=== PATIENT | male | born 1965 | race Caucasian/White ===

== ENCOUNTER 2017-08-30 15:10 | Emergency (ER) | payer MEDICAID ==
[~2017-08-30] VITALS: Ht 177.8 cm; Wt 72.9 kg
[~2017-08-30 15:10] MED LIST: BENZ-49 PO; FOLI1TAB16 PO; MULT-1179 PO; THI100T PO
[2017-08-30] MEDS ORDERED: Potassium Cl inj 20 MEQ, magnesium sulf injection 2 GM, folic acid inj. 1 MG, thiamine ... IV ONE ×6 (18:11)
[2017-08-30] MEDS ORDERED: ondansetron/PF 4mg/2ml inj IV ONE (18:15)
[2017-08-30] MEDS ORDERED: pantoprazole 40 MG vial IV ONE (18:15)
[2017-08-30] MEDS ORDERED: [UNRECOGNIZED DRUG - REMARK] IV ONE ×5 (18:17)
[2017-08-30] MEDS ORDERED: magnesium 2GM in 50ml NS 50 ML IV ONE (18:20)
[2017-08-30] MEDS ORDERED: [UNRECOGNIZED DRUG - REMARK] IV ONE ×4 (19:30)
[2017-08-30] MEDS ORDERED: thiamine 100mg tablet PO ONE (19:35)
[2017-08-30] MEDS ORDERED: CHLO10CA6 PO (20:46)
[2017-08-30 22:49] VITALS: BP 145/65
== END 2017-08-30 22:50 | disposition home or self-care (01) ==
LOC: ER 15:11
DX: F10.239 Alcohol dependence with withdrawal, unspecified (principal); R56.9 Unspecified convulsions; Z59.0 Homelessness; Y90.9 Presence of alcohol in blood, level not specified
CPT/HCPCS: 96365; 96366; 96375; 99284; C9113; J2405; J3475; J3480; J3490; J3411

== ENCOUNTER 2017-09-30 20:17 | Emergency (ER) | payer MEDICAID ==
[~2017-09-30] VITALS: Ht 177.8 cm; Wt 77.3 kg
[~2017-09-30 20:17] MED LIST changes: +CHLO10CA6 PO
[2017-09-30] MEDS ORDERED: normal saline 1000ML IV soln IVB ONE ×2 (20:25→23:25)
[2017-09-30] MEDS ORDERED: TETanus/Pertussis (Acell)/Diphther VAC/PF (Tdap-Adult) 0.5ml syringe IM ONE (20:25)
[2017-09-30] MEDS ORDERED: magnesium 2GM in 50ml NS 50 ML IV ONE (20:25)
[2017-09-30] MEDS ORDERED: thiamine inj. 100 MG in normal saline 100ml IV soln 99 ML IV ONE (20:25)
[2017-09-30] MEDS ORDERED: BUPIVAcaine/PF 2.5 mg/ml (0.25%) 30ml vial IJ ONE (20:55)
[2017-10-01] MEDS ORDERED: phenobarbital inj 260 MG in normal saline 100ml IV soln 99 ML IV STA (05:06)
[2017-10-01] MEDS ORDERED: normal saline 1000ML IV soln IVB ONE (05:10)
[2017-10-01] MEDS ORDERED: LORazepam 2 mg/ml vial IV ONE (10:40)
[2017-10-01 12:30] VITALS: BP 137/78
== END 2017-10-01 12:32 | disposition home or self-care (01) ==
LOC: ER 20:18
DX: S06.0X0A Concussion without loss of consciousness, initial encounter (principal); S05.11XA Contusion of eyeball and orbital tissues, right eye, initial encounter; S50.11XA Contusion of right forearm, initial encounter; S40.211A Abrasion of right shoulder, initial encounter; F10.239 Alcohol dependence with withdrawal, unspecified; F10.229 Alcohol dependence with intoxication, unspecified; Z79.899 Other long term (current) drug therapy; V19.9XXA Pedal cyclist (driver) (passenger) injured in unspecified traffic accident, initial encounter; Y93.89 Activity, other specified; Y92.89 Other specified places as the place of occurrence of the external cause; Y99.8 Other external cause status; Y90.0 Blood alcohol level of less than 20 mg/100 ml
CPT/HCPCS: 36415; 70450; 72125; 80320; 90471; 90715; 96361; 96365; 96367; 96368; 96375; 99285; A6449; J2060; J2560; J3411; J3475; J3490; J7030

== ENCOUNTER 2017-10-28 21:03 | Inpatient (IN) | payer MEDICAID ==
[~2017-10-28] VITALS: Ht 177.8 cm; Wt 77.3 kg
[2017-10-28] MEDS ORDERED: normal saline 1000ML IV soln IVB ONE (21:10)
[2017-10-28] MEDS ORDERED: magnesium 2GM in 50ml NS 50 ML IV ONE (21:10)
[2017-10-28] MEDS ORDERED: ondansetron/PF 4mg/2ml inj IV ONE (21:10)
[2017-10-28] MEDS ORDERED: thiamine inj. 100 MG in normal saline 100ml IV soln 99 ML IV ONE (21:10)
[2017-10-28] MEDS ORDERED: BUPIVAcaine/PF 2.5 mg/ml (0.25%) 30ml vial IJ ONE (21:15)
[2017-10-28] MEDS ORDERED: TETanus/Pertussis (Acell)/Diphther VAC/PF (Tdap-Adult) 0.5ml syringe IM ONE (21:15)
[2017-10-28 21:48] LABS: CLARITY,URINE CLEAR (Clear); COLOR,URINE YELLOW (Yellow); GLUCOSE, URINE NEGATIVE (Neg); KETONES,URINE TRACE mg/dl (Neg); LEUKOCYTE ESTERASE ,URINE NEGATIVE (Neg); NITRITES, URINE NEGATIVE (Neg); OCCULT BLOOD,URINE TRACE-INTACT (Neg); PROTEIN,URINE 30 mg/dl (Neg); UA COLLECTION TYPE STRAIGHT CATH
[2017-10-28 21:49] LABS: ALANINE AMINOTRANSFERASE 48 U/L (12-78); ALBUMIN 3.8 G/DL (3.4-5.0); ALBUMIN/GLOBULIN RATIO 0.9 (1.1-1.5); ALKALINE PHOSPHATASE 90 IU/L (46-116); ANION GAP 14 (8-16); ASPARTATE AMINO TRANSFERASE 70 U/L (10-37); BILIRUBIN,TOTAL 0.7 MG/DL (0.1-1.0); BLOOD UREA NITROGEN 5 MG/DL (7-18); BUN/CREATININE RATIO 6.7 (5.4-32.0); CALCIUM 8.4 MG/DL (8.5-10.1); CHLORIDE 92 MMOL/L (99-107); CREATININE 0.75 MG/DL (0.60-1.10); ETHANOL 0.546 GM/DL (0.0-0.010); GLUCOSE 90 MG/DL (70-104); MAGNESIUM 1.9 MG/DL (1.5-2.4); POTASSIUM 3.8 MMOL/L (3.5-5.1); SODIUM 129 MMOL/L (135-145); TOTAL CARBON DIOXIDE 23.2 MMOL/L (24-32); eGFR > 90 ML/MIN
[2017-10-28 21:57] LABS: URINE AMPHETAMINE SCREEN NEGATIVE (Neg); URINE BARBITUATE SCREEN NEGATIVE (Neg); URINE BENZODIAZEPINES SCREEN POSITIVE (Neg); URINE CANNABINOID SCREEN POSITIVE (Neg); URINE COCAINE SCREEN NEGATIVE (Neg); URINE METHADONE SCREEN NEGATIVE (Neg); URINE OPIATE SCREEN NEGATIVE (Neg); URINE PHENCYCLIDINE SCREEN NEGATIVE (Neg)
[2017-10-28 22:03] LABS: BACTERIA,URINE NONE SEEN /HPF (Neg); HYALINE CASTS 0-3 /LPF (NEGATIVE); MUCUS STRANDS FEW /LPF (Neg); RBC,URINE 0-2 /HPF (0-2); SQUAMOUS EPITHELIAL CELL,UR NONE SEEN /LPF (FEW); WBC,URINE 0-4 /HPF (0-4)
[2017-10-28 22:11] LABS: BASOPHILS % (AUTO) 0.6 % (0-1); EOSINOPHILS # (AUTO) 0.1 X10'3 (0-0.9); EOSINOPHILS % (AUTO) 2.5 % (0-6); HEMATOCRIT 35.1 % (42.0-52.0); LYMPHOCYTES # (AUTO) 1.5 X10'3 (1.1-4.8); MEAN CORPUSCULAR HEMOGLOBIN 30.8 PG (27.0-31.0); MEAN CORPUSCULAR HGB CONC 34.2 % (33.0-36.5); MONOCYTES # (AUTO) 0.3 X10'3 (0-0.9); MONOCYTES % (AUTO) 9.4 % (2-12); NEUTROPHILS # (AUTO) 1.3 X10'3 (1.8-7.7); NEUTROPHILS % (AUTO) 41.5 % (42-75); PLATELET COUNT 130 X10'3 (140-440); RED CELL DISTRIBUTION WIDTH 18.2 % (11.5-14.5); WHITE BLOOD COUNT 3.2 X10'3 (4.5-11.0)
[2017-10-28] MEDS ORDERED: thiamine 100mg/ml 2ml inj. IV STA (22:13)
[2017-10-29] MEDS ORDERED: normal saline 1000ML IV soln IVB ONE (04:25)
[2017-10-29] MEDS ORDERED: bacitracin 15gm ointment TP ONE (05:35)
[2017-10-29] MEDS ORDERED: ondansetron/PF 4mg/2ml inj IV PRN (09:45)
[2017-10-29] MEDS ORDERED: haloperidol 5mg tablet PO PRN (09:45)
[2017-10-29] MEDS ORDERED: magnesium hydroxide 30ml (MOM) UD suspension PO PRN (09:45)
[2017-10-29] MEDS ORDERED: haloperidol lactate 5mg/ml inj IM PRN (09:45)
[2017-10-29] MEDS ORDERED: magnesium 4gm in 100ml NS 100 ML IV PRN (09:45)
[2017-10-29] MEDS ORDERED: mag hydrox/Alum hydrox/simeth 30ml oral suspension PO PRN (09:45)
[2017-10-29] MEDS ORDERED: potassium Cl 20 mEq SR tablet PO PRN (09:45)
[2017-10-29] MEDS ORDERED: potassium Cl 40MEQ/NS 500ml 500 ML IV PRN ×2 (09:45)
[2017-10-29] MEDS ORDERED: bisacodyl 10mg suppository rectal RC PRN (09:45)
[2017-10-29] MEDS ORDERED: dextrose 50%-water 50ml dispensing syringe IV PRN (09:45)
[2017-10-29] MEDS ORDERED: magnesium 2GM in 50ml NS 50 ML IV PRN (09:45)
[2017-10-29] MEDS: potassium Cl 20mEq in NS 1,000 ML IV SCH (10:34)
[2017-10-29] MEDS: thiamine inj. 100 MG, MVI, adult No.4 with vit. K 10 ML in dextrose 5% water 500ml 489 ML IV SCH ×3 (11:14)
[2017-10-29 13:22] VITALS: BP 146/90
[2017-10-29] MEDS ORDERED: ketorolac tromethamine 15mg/ml inj. IV PRN (13:40)
[2017-10-29] MEDS: LORazepam 2 mg/ml vial IV PRN ×4 (14:02→22:50)
[2017-10-29 18:00] VITALS: BP 135/79
[2017-10-29] MEDS: docusate sod 100mg capsule PO SCH (19:33)
[2017-10-29] MEDS ORDERED: THI100T PO (20:19)
[2017-10-29] MEDS ORDERED: BENZ-49 PO (20:19)
[2017-10-29] MEDS ORDERED: CHLO25CA10 PO (20:19)
[2017-10-29] MEDS ORDERED: FOLI0.4T2 PO (20:19)
[2017-10-29] MEDS ORDERED: MULT-1179 PO (20:19)
[2017-10-29 22:00] VITALS: BP 139/85
[2017-10-30] MEDS: potassium Cl 20mEq in NS 1,000 ML IV SCH ×2 (03:19→10:44)
[2017-10-30] MEDS: LORazepam 2 mg/ml vial IV PRN ×2 (05:15→09:03)
[2017-10-30 06:00] VITALS: BP 153/89
[2017-10-30 06:10] LABS: BASOPHILS % (AUTO) 0.4 % (0-1); EOSINOPHILS # (AUTO) 0.1 X10'3 (0-0.9); EOSINOPHILS % (AUTO) 3.3 % (0-6); HEMATOCRIT 36.5 % (42.0-52.0); HEMOGLOBIN 12.5 g/dl (14.0-17.9); LYMPHOCYTES % (AUTO) 26.3 % (21-51); MEAN CORPUSCULAR HEMOGLOBIN 31.3 PG (27.0-31.0); MEAN CORPUSCULAR HGB CONC 34.4 % (33.0-36.5); MEAN PLATELET VOLUME 6.3 FL (7.4-10.4); MONOCYTES # (AUTO) 0.4 X10'3 (0-0.9); MONOCYTES % (AUTO) 11.2 % (2-12); NEUTROPHILS # (AUTO) 2.2 X10'3 (1.8-7.7); NEUTROPHILS % (AUTO) 58.8 % (42-75); PLATELET COUNT 129 X10'3 (140-440); RED BLOOD COUNT 4.01 X10'6 (4.70-6.10); RED CELL DISTRIBUTION WIDTH 17.9 % (11.5-14.5); WHITE BLOOD COUNT 3.7 X10'3 (4.5-11.0)
[2017-10-30 06:28] LABS: ALANINE AMINOTRANSFERASE 50 U/L (12-78); ALBUMIN 3.3 G/DL (3.4-5.0); ALBUMIN/GLOBULIN RATIO 0.8 (1.1-1.5); ALKALINE PHOSPHATASE 81 IU/L (46-116); ANION GAP 7 (8-16); ASPARTATE AMINO TRANSFERASE 59 U/L (10-37); BILIRUBIN,TOTAL 1.2 MG/DL (0.1-1.0); BLOOD UREA NITROGEN 6 MG/DL (7-18); BUN/CREATININE RATIO 8.1 (5.4-32.0); CHLORIDE 98 MMOL/L (99-107); CREATININE 0.74 MG/DL (0.60-1.10); GLUCOSE 90 MG/DL (70-104); MAGNESIUM 1.6 MG/DL (1.5-2.4); POTASSIUM 3.6 MMOL/L (3.5-5.1); SODIUM 134 MMOL/L (135-145); TOTAL CARBON DIOXIDE 28.8 MMOL/L (24-32); TOTAL PROTEIN 7.5 G/DL (6.4-8.2); eGFR > 90 ML/MIN
[2017-10-30] MEDS: K and/or MAG REPLACEMENT MC SCH (08:00)
[2017-10-30] MEDS ORDERED: folic acid inj. 2 MG, thiamine inj. 100 MG, MVI, adult No.4 with vit. K 10 ML in dextro... IV SCH ×4 (08:00)
[2017-10-30] MEDS: thiamine inj. 100 MG, MVI, adult No.4 with vit. K 10 ML in dextrose 5% water 500ml 489 ML IV SCH ×3 (08:51)
[2017-10-30] MEDS: docusate sod 100mg capsule PO SCH ×2 (08:51→20:37)
[2017-10-30 10:00] VITALS: BP 152/83
[2017-10-30 18:30] VITALS: BP 171/106
[2017-10-30 20:00] VITALS: BP 156/99
[2017-10-30] MEDS: ketoconazole 2% cream 15gm TP SCH (20:37)
[2017-10-31] MEDS: LORazepam 1 MG tablet PO PRN (00:34)
[2017-10-31] MEDS: potassium Cl 20mEq in NS 1,000 ML IV SCH ×2 (00:34→13:12)
[2017-10-31 05:48] LABS: BASOPHILS % (AUTO) 0.1 % (0-1); EOSINOPHILS # (AUTO) 0.2 X10'3 (0-0.9); EOSINOPHILS % (AUTO) 4.3 % (0-6); HEMATOCRIT 37.6 % (42.0-52.0); HEMOGLOBIN 13.1 g/dl (14.0-17.9); LYMPHOCYTES % (AUTO) 21.1 % (21-51); MEAN CORPUSCULAR HEMOGLOBIN 31.5 PG (27.0-31.0); MEAN CORPUSCULAR HGB CONC 34.9 % (33.0-36.5); MEAN CORPUSCULAR VOLUME 90.1 FL (78-98); MEAN PLATELET VOLUME 7.3 FL (7.4-10.4); MONOCYTES # (AUTO) 0.4 X10'3 (0-0.9); MONOCYTES % (AUTO) 8.5 % (2-12); NEUTROPHILS # (AUTO) 3.2 X10'3 (1.8-7.7); PLATELET COUNT 110 X10'3 (140-440); RED BLOOD COUNT 4.17 X10'6 (4.70-6.10); RED CELL DISTRIBUTION WIDTH 17.9 % (11.5-14.5); WHITE BLOOD COUNT 4.8 X10'3 (4.5-11.0)
[2017-10-31 06:00] VITALS: BP 150/99
[2017-10-31 06:20] LABS: ALANINE AMINOTRANSFERASE 64 U/L (12-78); ALBUMIN 3.6 G/DL (3.4-5.0); ALBUMIN/GLOBULIN RATIO 0.8 (1.1-1.5); ALKALINE PHOSPHATASE 82 IU/L (46-116); ANION GAP 9 (8-16); ASPARTATE AMINO TRANSFERASE 83 U/L (10-37); BILIRUBIN,TOTAL 1.3 MG/DL (0.1-1.0); BLOOD UREA NITROGEN 4 MG/DL (7-18); BUN/CREATININE RATIO 5.4 (5.4-32.0); CALCIUM 9.3 MG/DL (8.5-10.1); CHLORIDE 94 MMOL/L (99-107); CREATININE 0.74 MG/DL (0.60-1.10); GLUCOSE 102 MG/DL (70-104); MAGNESIUM 1.4 MG/DL (1.5-2.4); POTASSIUM 3.4 MMOL/L (3.5-5.1); SODIUM 128 MMOL/L (135-145); TOTAL CARBON DIOXIDE 24.8 MMOL/L (24-32); eGFR > 90 ML/MIN
[2017-10-31] MEDS: K and/or MAG REPLACEMENT MC SCH (07:49)
[2017-10-31] MEDS ORDERED: normal saline 1000ml 1,000 ML IV SCH (07:50)
[2017-10-31] MEDS: docusate sod 100mg capsule PO SCH ×2 (08:01→19:30)
[2017-10-31] MEDS: multivitamins, therapeutics tablet PO SCH (08:02)
[2017-10-31] MEDS: thiamine 100mg tablet PO SCH (08:02)
[2017-10-31] MEDS: potassium Cl 20 mEq SR tablet PO PRN ×3 (08:03→16:59)
[2017-10-31] MEDS: magnesium Cl slow-release 64mg tablet PO PRN ×2 (08:04→14:58)
[2017-10-31] MEDS: ketoconazole 2% cream 15gm TP SCH ×2 (08:05→19:35)
[2017-10-31 10:00] VITALS: BP 162/104
[2017-10-31] MEDS ORDERED: hyDRALAzine 10mg tablet PO PRN (17:05)
[2017-10-31] MEDS ORDERED: hydrALAZINE 20mg/ml inj. IV PRN (17:10)
[2017-10-31] MEDS: lisinopril 20mg tablet PO SCH (17:27)
[2017-10-31 18:00] VITALS: BP 155/96
[2017-10-31 22:00] VITALS: BP 166/99
[2017-11-01] MEDS: LORazepam 1 MG tablet PO PRN ×4 (00:14→23:00)
[2017-11-01] MEDS: potassium Cl 20mEq in NS 1,000 ML IV SCH (01:35)
[2017-11-01 01:56] VITALS: BP 142/88
[2017-11-01 05:00] VITALS: BP 149/94
[2017-11-01 06:15] LABS: BASOPHILS % (AUTO) 0.1 % (0-1); EOSINOPHILS # (AUTO) 0.2 X10'3 (0-0.9); EOSINOPHILS % (AUTO) 3.9 % (0-6); HEMATOCRIT 35.4 % (42.0-52.0); HEMOGLOBIN 12.1 g/dl (14.0-17.9); LYMPHOCYTES # (AUTO) 1.2 X10'3 (1.1-4.8); LYMPHOCYTES % (AUTO) 21.1 % (21-51); MEAN CORPUSCULAR HEMOGLOBIN 31.5 PG (27.0-31.0); MEAN CORPUSCULAR HGB CONC 34.3 % (33.0-36.5); MEAN CORPUSCULAR VOLUME 91.7 FL (78-98); MEAN PLATELET VOLUME 7.1 FL (7.4-10.4); MONOCYTES # (AUTO) 0.8 X10'3 (0-0.9); MONOCYTES % (AUTO) 13.2 % (2-12); NEUTROPHILS # (AUTO) 3.5 X10'3 (1.8-7.7); NEUTROPHILS % (AUTO) 61.7 % (42-75); PLATELET COUNT 144 X10'3 (140-440); RED BLOOD COUNT 3.86 X10'6 (4.70-6.10); WHITE BLOOD COUNT 5.7 X10'3 (4.5-11.0)
[2017-11-01 06:26] LABS: ALANINE AMINOTRANSFERASE 54 U/L (12-78); ALBUMIN 3.4 G/DL (3.4-5.0); ALBUMIN/GLOBULIN RATIO 0.8 (1.1-1.5); ALKALINE PHOSPHATASE 78 IU/L (46-116); ANION GAP 9 (8-16); ASPARTATE AMINO TRANSFERASE 51 U/L (10-37); BILIRUBIN,TOTAL 0.9 MG/DL (0.1-1.0); BLOOD UREA NITROGEN 6 MG/DL (7-18); BUN/CREATININE RATIO 8.1 (5.4-32.0); CALCIUM 9.1 MG/DL (8.5-10.1); CHLORIDE 94 MMOL/L (99-107); CREATININE 0.74 MG/DL (0.60-1.10); GLUCOSE 101 MG/DL (70-104); MAGNESIUM 1.4 MG/DL (1.5-2.4); POTASSIUM 3.9 MMOL/L (3.5-5.1); SODIUM 128 MMOL/L (135-145); TOTAL CARBON DIOXIDE 24.8 MMOL/L (24-32); TOTAL PROTEIN 7.6 G/DL (6.4-8.2); eGFR > 90 ML/MIN
[2017-11-01] MEDS: K and/or MAG REPLACEMENT MC SCH (07:56)
[2017-11-01 08:07] VITALS: BP 134/91
[2017-11-01] MEDS: docusate sod 100mg capsule PO SCH ×2 (08:08→21:58)
[2017-11-01] MEDS: magnesium Cl slow-release 64mg tablet PO PRN ×2 (08:09→18:03)
[2017-11-01] MEDS: lisinopril 20mg tablet PO SCH (08:09)
[2017-11-01] MEDS: thiamine 100mg tablet PO SCH (08:09)
[2017-11-01] MEDS: multivitamins, therapeutics tablet PO SCH (08:09)
[2017-11-01] MEDS: ketoconazole 2% cream 15gm TP SCH ×2 (08:10→21:59)
[2017-11-01 10:00] VITALS: BP 149/90
[2017-11-01] MEDS: dextrose 5%-water 1,000 ML IV SCH (12:03)
[2017-11-01 14:29] LABS: ALANINE AMINOTRANSFERASE 54 U/L (12-78); ALBUMIN 3.4 G/DL (3.4-5.0); ALBUMIN/GLOBULIN RATIO 0.8 (1.1-1.5); ALKALINE PHOSPHATASE 81 IU/L (46-116); ANION GAP 8 (8-16); ASPARTATE AMINO TRANSFERASE 45 U/L (10-37); BILIRUBIN,TOTAL 0.8 MG/DL (0.1-1.0); BLOOD UREA NITROGEN 6 MG/DL (7-18); BUN/CREATININE RATIO 7.5 (5.4-32.0); CALCIUM 9.3 MG/DL (8.5-10.1); CHLORIDE 93 MMOL/L (99-107); GLUCOSE 97 MG/DL (70-104); POTASSIUM 3.9 MMOL/L (3.5-5.1); SODIUM 127 MMOL/L (135-145); TOTAL CARBON DIOXIDE 25.7 MMOL/L (24-32); TOTAL PROTEIN 7.7 G/DL (6.4-8.2); eGFR > 90 ML/MIN
[2017-11-01] MEDS ORDERED: potassium Cl 40MEQ/NS 500ml 500 ML IV PRN ×2 (17:30)
[2017-11-01] MEDS ORDERED: potassium Cl 20 mEq SR tablet PO PRN ×2 (17:30)
[2017-11-01] MEDS ORDERED: LORazepam 1 MG tablet PO PRN (17:58)
[2017-11-01 18:00] VITALS: BP 146/91
[2017-11-01 22:00] VITALS: BP 154/88
[2017-11-02 05:59] LABS: BASOPHILS % (AUTO) 0.3 % (0-1); EOSINOPHILS # (AUTO) 0.2 X10'3 (0-0.9); HEMOGLOBIN 12.2 g/dl (14.0-17.9); LYMPHOCYTES # (AUTO) 1.3 X10'3 (1.1-4.8); LYMPHOCYTES % (AUTO) 21.3 % (21-51); MEAN CORPUSCULAR HEMOGLOBIN 31.6 PG (27.0-31.0); MEAN CORPUSCULAR HGB CONC 34.7 % (33.0-36.5); MEAN CORPUSCULAR VOLUME 91.1 FL (78-98); MEAN PLATELET VOLUME 6.7 FL (7.4-10.4); MONOCYTES # (AUTO) 0.9 X10'3 (0-0.9); MONOCYTES % (AUTO) 14.5 % (2-12); NEUTROPHILS # (AUTO) 3.6 X10'3 (1.8-7.7); NEUTROPHILS % (AUTO) 60.9 % (42-75); PLATELET COUNT 159 X10'3 (140-440); RED BLOOD COUNT 3.85 X10'6 (4.70-6.10)
[2017-11-02 06:15] VITALS: BP 112/55
[2017-11-02 06:57] LABS: ALANINE AMINOTRANSFERASE 50 U/L (12-78); ALBUMIN 3.4 G/DL (3.4-5.0); ALBUMIN/GLOBULIN RATIO 0.8 (1.1-1.5); ALKALINE PHOSPHATASE 74 IU/L (46-116); ANION GAP 8 (8-16); ASPARTATE AMINO TRANSFERASE 37 U/L (10-37); BILIRUBIN,TOTAL 0.8 MG/DL (0.1-1.0); BLOOD UREA NITROGEN 7 MG/DL (7-18); BUN/CREATININE RATIO 9.3 (5.4-32.0); CALCIUM 9.2 MG/DL (8.5-10.1); CHLORIDE 90 MMOL/L (99-107); CREATININE 0.75 MG/DL (0.60-1.10); GLUCOSE 97 MG/DL (70-104); MAGNESIUM 1.3 MG/DL (1.5-2.4); PHOSPHORUS 4.8 MG/DL (2.3-4.5); POTASSIUM 3.9 MMOL/L (3.5-5.1); SODIUM 125 MMOL/L (135-145); TOTAL CARBON DIOXIDE 27.2 MMOL/L (24-32); TOTAL PROTEIN 7.8 G/DL (6.4-8.2); eGFR > 90 ML/MIN
[2017-11-02] MEDS: K and/or MAG REPLACEMENT MC SCH (07:27)
[2017-11-02] MEDS: docusate sod 100mg capsule PO SCH ×2 (07:28→21:12)
[2017-11-02] MEDS: lisinopril 20mg tablet PO SCH (07:39)
[2017-11-02] MEDS: multivitamins, therapeutics tablet PO SCH (07:39)
[2017-11-02] MEDS: thiamine 100mg tablet PO SCH (07:39)
[2017-11-02] MEDS: ketoconazole 2% cream 15gm TP SCH ×2 (07:40→21:13)
[2017-11-02] MEDS: magnesium Cl slow-release 64mg tablet PO PRN ×2 (07:40→21:12)
[2017-11-02] MEDS: acetaminophen 325mg tablet PO PRN (07:41)
[2017-11-02] MEDS: LORazepam 1 MG tablet PO PRN (07:41)
[2017-11-02 07:45] VITALS: BP 141/84
[2017-11-02] MEDS ORDERED: folic acid inj. 2 MG, thiamine inj. 100 MG, MVI, adult No.4 with vit. K 10 ML in dextro... IV SCH ×4 (08:00)
[2017-11-02 10:00] VITALS: BP 124/81
[2017-11-02] MEDS: dextrose 5%-water 1,000 ML IV SCH (12:18)
[2017-11-02 14:30] LABS: ALANINE AMINOTRANSFERASE 48 U/L (12-78); ALBUMIN 3.4 G/DL (3.4-5.0); ALBUMIN/GLOBULIN RATIO 0.8 (1.1-1.5); ALKALINE PHOSPHATASE 77 IU/L (46-116); ANION GAP 8 (8-16); ASPARTATE AMINO TRANSFERASE 35 U/L (10-37); BILIRUBIN,TOTAL 0.9 MG/DL (0.1-1.0); BLOOD UREA NITROGEN 8 MG/DL (7-18); CALCIUM 9.3 MG/DL (8.5-10.1); CHLORIDE 88 MMOL/L (99-107); CREATININE 0.73 MG/DL (0.60-1.10); GLUCOSE 98 MG/DL (70-104); POTASSIUM 3.6 MMOL/L (3.5-5.1); SODIUM 123 MMOL/L (135-145); TOTAL CARBON DIOXIDE 27.3 MMOL/L (24-32); TOTAL PROTEIN 7.8 G/DL (6.4-8.2); eGFR > 90 ML/MIN
[2017-11-02] MEDS ORDERED: LORazepam 1 MG tablet PO PRN (16:20)
[2017-11-02] MEDS ORDERED: chlordiazePOXIDE 25mg capsule PO ONE (16:35)
[2017-11-02] MEDS: normal saline 1000ml 1,000 ML IV SCH (16:47)
[2017-11-02 18:00] VITALS: BP 150/90
[2017-11-02 22:00] VITALS: BP 154/91
[2017-11-03] MEDS: LORazepam 1 MG tablet PO PRN ×3 (03:24→16:06)
[2017-11-03] MEDS: normal saline 1000ml 1,000 ML IV SCH ×2 (04:54→14:38)
[2017-11-03 06:00] VITALS: BP 138/71
[2017-11-03 06:11] LABS: BASOPHILS % (AUTO) 0.3 % (0-1); EOSINOPHILS # (AUTO) 0.2 X10'3 (0-0.9); EOSINOPHILS % (AUTO) 2.5 % (0-6); HEMATOCRIT 33.8 % (42.0-52.0); HEMOGLOBIN 11.5 g/dl (14.0-17.9); LYMPHOCYTES # (AUTO) 1.1 X10'3 (1.1-4.8); LYMPHOCYTES % (AUTO) 16.2 % (21-51); MEAN CORPUSCULAR HEMOGLOBIN 31.3 PG (27.0-31.0); MEAN CORPUSCULAR HGB CONC 34.1 % (33.0-36.5); MEAN CORPUSCULAR VOLUME 91.8 FL (78-98); MEAN PLATELET VOLUME 6.8 FL (7.4-10.4); MONOCYTES # (AUTO) 1.4 X10'3 (0-0.9); MONOCYTES % (AUTO) 19.8 % (2-12); NEUTROPHILS # (AUTO) 4.3 X10'3 (1.8-7.7); NEUTROPHILS % (AUTO) 61.2 % (42-75); PLATELET COUNT 185 X10'3 (140-440); RED BLOOD COUNT 3.68 X10'6 (4.70-6.10); RED CELL DISTRIBUTION WIDTH 17.4 % (11.5-14.5)
[2017-11-03 06:31] LABS: ALANINE AMINOTRANSFERASE 47 U/L (12-78); ALBUMIN 3.3 G/DL (3.4-5.0); ALBUMIN/GLOBULIN RATIO 0.8 (1.1-1.5); ALKALINE PHOSPHATASE 69 IU/L (46-116); ANION GAP 7 (8-16); ASPARTATE AMINO TRANSFERASE 24 U/L (10-37); BILIRUBIN,TOTAL 0.7 MG/DL (0.1-1.0); BLOOD UREA NITROGEN 9 MG/DL (7-18); BUN/CREATININE RATIO 9.3 (5.4-32.0); CALCIUM 9.1 MG/DL (8.5-10.1); CHLORIDE 92 MMOL/L (99-107); CREATININE 0.97 MG/DL (0.60-1.10); GLUCOSE 96 MG/DL (70-104); MAGNESIUM 1.5 MG/DL (1.5-2.4); PHOSPHORUS 4.4 MG/DL (2.3-4.5); POTASSIUM 3.8 MMOL/L (3.5-5.1); SODIUM 126 MMOL/L (135-145); TOTAL CARBON DIOXIDE 27.5 MMOL/L (24-32); TOTAL PROTEIN 7.5 G/DL (6.4-8.2); eGFR 82 ML/MIN
[2017-11-03] MEDS: K and/or MAG REPLACEMENT MC SCH (06:44)
[2017-11-03] MEDS: multivitamins, therapeutics tablet PO SCH (07:31)
[2017-11-03] MEDS: folic acid 1mg tablet PO SCH (07:31)
[2017-11-03] MEDS: thiamine 100mg tablet PO SCH (07:32)
[2017-11-03] MEDS: lisinopril 20mg tablet PO SCH (07:33)
[2017-11-03] MEDS: ketoconazole 2% cream 15gm TP SCH ×2 (07:35→22:48)
[2017-11-03] MEDS: docusate sod 100mg capsule PO SCH ×2 (08:00→22:48)
[2017-11-03 10:00] VITALS: BP 120/72
[2017-11-03] MEDS ORDERED: LORazepam 1 MG tablet PO PRN (12:25)
[2017-11-03] MEDS ORDERED: LORazepam 2 mg/ml vial IV PRN (12:25)
[2017-11-03] MEDS: chlordiazePOXIDE 25mg capsule PO SCH (16:41)
[2017-11-03 18:00] VITALS: BP 119/81
[2017-11-03 22:00] VITALS: BP 150/83
[2017-11-04] MEDS: normal saline 1000ml 1,000 ML IV SCH ×2 (04:03→08:56)
[2017-11-04 06:00] VITALS: BP 139/82
[2017-11-04] MEDS: multivitamins, therapeutics tablet PO SCH (07:07)
[2017-11-04] MEDS: folic acid 1mg tablet PO SCH (07:07)
[2017-11-04] MEDS: LORazepam 1 MG tablet PO PRN (07:07)
[2017-11-04] MEDS: chlordiazePOXIDE 25mg capsule PO SCH (07:07)
[2017-11-04] MEDS: lisinopril 20mg tablet PO SCH (07:07)
[2017-11-04] MEDS: acetaminophen 325mg tablet PO PRN (07:07)
[2017-11-04 07:08] LABS: ALANINE AMINOTRANSFERASE 37 U/L (12-78); ALBUMIN 3.3 G/DL (3.4-5.0); ALBUMIN/GLOBULIN RATIO 0.7 (1.1-1.5); ALKALINE PHOSPHATASE 66 IU/L (46-116); ANION GAP 8 (8-16); ASPARTATE AMINO TRANSFERASE 17 U/L (10-37); BILIRUBIN,TOTAL 0.5 MG/DL (0.1-1.0); BLOOD UREA NITROGEN 8 MG/DL (7-18); BUN/CREATININE RATIO 10.8 (5.4-32.0); CALCIUM 9.5 MG/DL (8.5-10.1); CHLORIDE 97 MMOL/L (99-107); CREATININE 0.74 MG/DL (0.60-1.10); GLUCOSE 92 MG/DL (70-104); MAGNESIUM 1.8 MG/DL (1.5-2.4); PHOSPHORUS 4.6 MG/DL (2.3-4.5); POTASSIUM 3.9 MMOL/L (3.5-5.1); SODIUM 131 MMOL/L (135-145); TOTAL CARBON DIOXIDE 26.2 MMOL/L (24-32); TOTAL PROTEIN 7.8 G/DL (6.4-8.2); eGFR > 90 ML/MIN
[2017-11-04] MEDS: ketoconazole 2% cream 15gm TP SCH ×2 (07:08→19:58)
[2017-11-04] MEDS: thiamine 100mg tablet PO SCH (07:08)
[2017-11-04] MEDS: docusate sod 100mg capsule PO SCH ×2 (07:08→19:59)
[2017-11-04] MEDS: K and/or MAG REPLACEMENT MC SCH (07:13)
[2017-11-04 10:00] VITALS: BP 107/69
[2017-11-04 18:00] VITALS: BP 142/93
[2017-11-04 22:00] VITALS: BP 150/99
[2017-11-05] MEDS ORDERED: magnesium 2GM in 50ml NS 50 ML IV ONE (00:35)
[2017-11-05] MEDS: normal saline 1000ml 1,000 ML IV SCH (01:38)
[2017-11-05 06:00] VITALS: BP 139/85
[2017-11-05 07:00] LABS: ALANINE AMINOTRANSFERASE 35 U/L (12-78); ALBUMIN 3.2 G/DL (3.4-5.0); ALBUMIN/GLOBULIN RATIO 0.7 (1.1-1.5); ALKALINE PHOSPHATASE 63 IU/L (46-116); ANION GAP 8 (8-16); ASPARTATE AMINO TRANSFERASE 17 U/L (10-37); BILIRUBIN,TOTAL 0.3 MG/DL (0.1-1.0); BLOOD UREA NITROGEN 12 MG/DL (7-18); BUN/CREATININE RATIO 16.4 (5.4-32.0); CALCIUM 9.4 MG/DL (8.5-10.1); CHLORIDE 99 MMOL/L (99-107); CREATININE 0.73 MG/DL (0.60-1.10); GLUCOSE 88 MG/DL (70-104); MAGNESIUM 2.4 MG/DL (1.5-2.4); PHOSPHORUS 4.6 MG/DL (2.3-4.5); POTASSIUM 3.8 MMOL/L (3.5-5.1); SODIUM 134 MMOL/L (135-145); TOTAL CARBON DIOXIDE 26.8 MMOL/L (24-32); TOTAL PROTEIN 7.7 G/DL (6.4-8.2); eGFR > 90 ML/MIN
[2017-11-05] MEDS: docusate sod 100mg capsule PO SCH (07:23)
[2017-11-05] MEDS: multivitamins, therapeutics tablet PO SCH (07:23)
[2017-11-05] MEDS: folic acid 1mg tablet PO SCH (07:23)
[2017-11-05] MEDS: chlordiazePOXIDE 25mg capsule PO SCH (07:23)
[2017-11-05] MEDS: thiamine 100mg tablet PO SCH (07:23)
[2017-11-05] MEDS: lisinopril 20mg tablet PO SCH (07:23)
[2017-11-05] MEDS: acetaminophen 325mg tablet PO PRN (07:24)
[2017-11-05] MEDS: K and/or MAG REPLACEMENT MC SCH (07:25)
[2017-11-05] MEDS: ketoconazole 2% cream 15gm TP SCH (08:00)
[2017-11-05] MEDS ORDERED: FOLI0.4T2 PO (11:22)
[2017-11-05] MEDS ORDERED: LISI-600 PO (11:22)
[2017-11-05] MEDS ORDERED: THI100T PO (11:22)
[2017-11-05] MEDS ORDERED: CHLO25CA10 PO (11:22)
[2017-11-05] MEDS ORDERED: KETO15CR2 TP (11:22)
[2017-11-05] MEDS ORDERED: LORazepam 1 MG tablet PO PRN (12:25)
[2017-11-05] MEDS ORDERED: LORazepam 2 mg/ml vial IV PRN (12:25)
== END 2017-11-05 12:18 | disposition home or self-care (01) | DRG 57 ==
LOC: ER 21:04 → ED HOLD 10-29 09:13 → ORTHO 4S 10-29 13:25
PROVIDERS: ADMIT Internal Medicine; ATTEND Family Medicine
DX: S06.0X0A Concussion without loss of consciousness, initial encounter (principal); D69.6 Thrombocytopenia, unspecified; E87.1 Hypo-osmolality and hyponatremia; B35.3 Tinea pedis; I10 Essential (primary) hypertension; F10.229 Alcohol dependence with intoxication, unspecified; S00.03XA Contusion of scalp, initial encounter; S00.81XA Abrasion of other part of head, initial encounter; X58.XXXA Exposure to other specified factors, initial encounter; R29.6 Repeated falls; F10.239 Alcohol dependence with withdrawal, unspecified; Y90.2 Blood alcohol level of 40-59 mg/100 ml; Z71.41 Alcohol abuse counseling and surveillance of alcoholic; Z59.0 Homelessness; Z79.899 Other long term (current) drug therapy; Z87.01 Personal history of pneumonia (recurrent); Y93.89 Activity, other specified; Y92.89 Other specified places as the place of occurrence of the external cause; Y99.8 Other external cause status
CPT/HCPCS: 36415; 64450; 70450; 70486; 71045; 72125; 80053; 80305; 80320; 81001; 82948; 83735; 84100; 85025; 87070; 90471; 90715; 93005; 96361; 96365; 96375; 97110; 97116; 97162; 97530; 99285; A4353; A4649; A6223; A6446; A6449; J1885; J2060; J2405; J3411; J3475; J3490; J7030; J7042; J7060; J7070

== ENCOUNTER 2019-10-03 06:36 | Emergency (ER) | payer MEDICAID ==
[~2019-10-03] VITALS: Ht 177.8 cm; Wt 77.3 kg
[~2019-10-03 06:36] MED LIST changes: -BENZ-49 PO; -CHLO10CA6 PO; +CHLO25CA10 PO; +FOLI0.4T2 PO; -FOLI1TAB16 PO; +KETO15CR2 TP; +LISI-600 PO
[2019-10-03] MEDS ORDERED: normal saline 1000ML IV soln IVB ONE (06:55)
[2019-10-03] MEDS ORDERED: LORazepam 2 mg/ml vial IV ONE (06:55)
[2019-10-03 07:36] LABS: BASOPHILS % (AUTO) 0.5 % (0-1); EOSINOPHILS % (AUTO) 1.2 % (0-6); HEMATOCRIT 40.6 % (42.0-52.0); LYMPHOCYTES # (AUTO) 0.4 X10'3 (1.1-4.8); LYMPHOCYTES % (AUTO) 15.7 % (21-51); MEAN CORPUSCULAR HEMOGLOBIN 31.6 PG (27.0-31.0); MEAN CORPUSCULAR HGB CONC 34.4 g/dL (33.0-36.5); MEAN PLATELET VOLUME 6.3 FL (7.4-10.4); MONOCYTES # (AUTO) 0.3 X10'3 (0-0.9); MONOCYTES % (AUTO) 11.5 % (2-12); NEUTROPHILS # (AUTO) 1.8 X10'3 (1.8-7.7); NEUTROPHILS % (AUTO) 71.1 % (42-75); PLATELET COUNT 130 X10'3 (140-440); RED BLOOD COUNT 4.41 X10'6 (4.70-6.10); RED CELL DISTRIBUTION WIDTH 15.7 % (11.5-14.5); WHITE BLOOD COUNT 2.5 X10'3 (4.5-11.0)
[2019-10-03 07:48] LABS: PARTIAL THROMBOPLASTIN TIME 26 SECONDS (22-32)
[2019-10-03 08:02] LABS: ALANINE AMINOTRANSFERASE 128 U/L (12-78); ALBUMIN 3.8 G/DL (3.4-5.0); ALBUMIN/GLOBULIN RATIO 0.9 (1.1-1.5); ALKALINE PHOSPHATASE 75 IU/L (46-116); ANION GAP 10 (8-16); ASPARTATE AMINO TRANSFERASE 163 U/L (10-37); BILIRUBIN,TOTAL 0.8 MG/DL (0.1-1.0); BLOOD UREA NITROGEN 7 MG/DL (7-18); BUN/CREATININE RATIO 8.1 (5.4-32.0); CALCIUM 8.8 MG/DL (8.5-10.1); CHLORIDE 100 MMOL/L (99-107); CREATININE 0.86 MG/DL (0.60-1.10); ETHANOL 0.074 GM/DL (0.0-0.010); GLUCOSE 88 MG/DL (70-104); LIPASE 340 U/L (73-393); POTASSIUM 3.5 MMOL/L (3.5-5.1); SODIUM 138 MMOL/L (135-145); TOTAL CARBON DIOXIDE 28.3 MMOL/L (24-32); TOTAL PROTEIN 7.9 G/DL (6.4-8.2); eGFR > 90 ML/MIN
[2019-10-03 08:07] LABS: PLATELET ESTIMATE DECREASED; TOTAL CELLS COUNTED 100
[2019-10-03] MEDS ORDERED: chlordiazePOXIDE 25mg capsule PO ONE ×2 (09:05→09:30)
[2019-10-03 09:14] VITALS: BP 159/92
[2019-10-03 09:16] LABS: CLARITY,URINE CLEAR (Clear); COLOR,URINE YELLOW (Yellow); GLUCOSE, URINE NEGATIVE (Neg); KETONES,URINE TRACE mg/dl (Neg); LEUKOCYTE ESTERASE ,URINE NEGATIVE (Neg); NITRITES, URINE NEGATIVE (Neg); OCCULT BLOOD,URINE NEGATIVE (Neg); PH,URINE 7.5 (4.8-8.0); PROTEIN,URINE TRACE mg/dl (Neg)
[2019-10-03 09:23] LABS: UA COLLECTION TYPE CLN CATCH MIDSTREAM
[2019-10-03 09:24] LABS: MUCUS STRANDS FEW /LPF (Neg)
[2019-10-03 09:25] LABS: BACTERIA,URINE 1+ /HPF (Neg); RBC,URINE 0-2 /HPF (0-2); SQUAMOUS EPITHELIAL CELL,UR FEW /LPF (FEW); WBC,URINE 0-4 /HPF (0-4)
[2019-10-03] MEDS ORDERED: LORA-269 PO (20:30)
== END 2019-10-03 09:43 | disposition home or self-care (01) ==
LOC: ER 06:37
DX: S00.83XA Contusion of other part of head, initial encounter (principal); S00.531A Contusion of lip, initial encounter; F07.81 Postconcussional syndrome; F10.129 Alcohol abuse with intoxication, unspecified; Z86.69 Personal history of other diseases of the nervous system and sense organs; W01.0XXA Fall on same level from slipping, tripping and stumbling without subsequent striking against object, initial encounter; Y93.89 Activity, other specified; Y92.89 Other specified places as the place of occurrence of the external cause; Y99.8 Other external cause status; Y90.0 Blood alcohol level of less than 20 mg/100 ml
CPT/HCPCS: 70450; 70486; 80053; 80320; 81001; 83690; 83735; 85025; 85610; 85730; 96374; 99285; J2060; J7030

== ENCOUNTER 2019-10-03 19:30 | Emergency (ER) | payer MEDICAID ==
[~2019-10-03] VITALS: Ht 170.2 cm; Wt 77.3 kg
[2019-10-03] MEDS ORDERED: LORA-269 PO (20:30)
[2019-10-03] MEDS ORDERED: LORazepam 1 MG tablet PO ONE (21:00)
[2019-10-03 21:09] VITALS: BP 155/100
== END 2019-10-03 21:05 | disposition home or self-care (01) ==
LOC: ER 19:30
DX: F10.239 Alcohol dependence with withdrawal, unspecified (principal); R42 Dizziness and giddiness; Z86.69 Personal history of other diseases of the nervous system and sense organs; Z79.899 Other long term (current) drug therapy
CPT/HCPCS: 99283

== ENCOUNTER 2019-10-08 07:00 | Emergency (ER) | payer MEDICAID ==
[~2019-10-08] VITALS: Ht 177.8 cm; Wt 77.3 kg
[~2019-10-08 07:00] MED LIST changes: +LORA-269 PO
[2019-10-08 07:01] VITALS: BP 129/91
== END 2019-10-08 08:13 | disposition home or self-care (01) ==
LOC: ER 07:00
DX: S90.112A Contusion of left great toe without damage to nail, initial encounter (principal); Z86.69 Personal history of other diseases of the nervous system and sense organs; Z98.890 Other specified postprocedural states; Z72.89 Other problems related to lifestyle; Z79.899 Other long term (current) drug therapy; W01.198A Fall on same level from slipping, tripping and stumbling with subsequent striking against other object, initial encounter; Y93.89 Activity, other specified; Y92.89 Other specified places as the place of occurrence of the external cause; Y99.8 Other external cause status
CPT/HCPCS: 73660; 99284

== ENCOUNTER 2019-12-27 00:58 | Emergency (ER) | payer MEDICAID ==
[~2019-12-27] VITALS: Ht 177.8 cm; Wt 77.3 kg
[~2019-12-27 00:58] MED LIST changes: -MULT-1179 PO; +MULT-25 PO
--- NOTE | 2019-12-27 01:12 | NUR ---
provided pt with large cup of water. pt drinking water without issue and urinal provided at bedside.
--- NOTE | 2019-12-27 01:52 | NUR ---
PT GIVEN 2ND LARGE CUP OF WATER. WILL CONTINUE TO MONITOR AND ATTEMPT GAIT TEST AFTER 2ND CUP CONSUMPTION
[2019-12-27 05:08] VITALS: BP 103/52
== END 2019-12-27 05:11 | disposition home or self-care (01) ==
LOC: ER 00:58
DX: F10.920 Alcohol use, unspecified with intoxication, uncomplicated (principal); Z86.69 Personal history of other diseases of the nervous system and sense organs; Z98.890 Other specified postprocedural states; Z72.89 Other problems related to lifestyle; Z79.899 Other long term (current) drug therapy; Y90.9 Presence of alcohol in blood, level not specified
CPT/HCPCS: 99284

== ENCOUNTER 2020-01-24 12:11 | Emergency (ER) | payer MEDICAID ==
[~2020-01-24] VITALS: Ht 177.8 cm; Wt 72.9 kg
[2020-01-24] MEDS ORDERED: phenobarbital inj 260 MG in normal saline 100ml IV soln 100 ML IV ONE (12:15)
[2020-01-24] MEDS ORDERED: thiamine 100mg tablet PO ONE (12:15)
[2020-01-24] MEDS ORDERED: normal saline 1000ML IV soln IVB ONE (12:15)
[2020-01-24] MEDS ORDERED: magnesium oxide 400mg tablet PO ONE (12:15)
[2020-01-24] MEDS ORDERED: TETanus/Pertussis (Acell)/Diphther VAC/PF (Tdap-Adult) 0.5ml syringe IMVAC ONE (12:15)
[2020-01-24 12:51] LABS: BASOPHILS % (AUTO) 0.4 % (0-1); EOSINOPHILS % (AUTO) 0.4 % (0-6); HEMATOCRIT 37.7 % (42.0-52.0); HEMOGLOBIN 12.7 g/dl (14.0-17.9); LYMPHOCYTES % (AUTO) 29.5 % (21-51); MEAN CORPUSCULAR HEMOGLOBIN 30.2 PG (27.0-31.0); MEAN CORPUSCULAR HGB CONC 33.6 g/dL (33.0-36.5); MEAN CORPUSCULAR VOLUME 90.1 FL (78-98); MEAN PLATELET VOLUME 6.9 FL (7.4-10.4); MONOCYTES # (AUTO) 0.4 X10'3 (0-0.9); MONOCYTES % (AUTO) 13.3 % (2-12); NEUTROPHILS # (AUTO) 1.9 X10'3 (1.8-7.7); NEUTROPHILS % (AUTO) 56.4 % (42-75); PLATELET COUNT 58 X10'3 (140-440); RED BLOOD COUNT 4.19 X10'6 (4.70-6.10); RED CELL DISTRIBUTION WIDTH 17.8 % (11.5-14.5); WHITE BLOOD COUNT 3.4 X10'3 (4.5-11.0)
[2020-01-24 13:08] LABS: ALANINE AMINOTRANSFERASE 91 U/L (12-78); ALBUMIN 3.6 G/DL (3.4-5.0); ALBUMIN/GLOBULIN RATIO 0.9 (1.1-1.5); ALKALINE PHOSPHATASE 60 IU/L (46-116); ANION GAP 10 (8-16); ASPARTATE AMINO TRANSFERASE 117 U/L (10-37); BILIRUBIN,TOTAL 0.9 MG/DL (0.1-1.0); BLOOD UREA NITROGEN 5 MG/DL (7-18); BUN/CREATININE RATIO 6.4 (5.4-32.0); CALCIUM 7.8 MG/DL (8.5-10.1); CHLORIDE 95 MMOL/L (99-107); CREATININE 0.78 MG/DL (0.60-1.10); GLUCOSE 91 MG/DL (70-104); LIPASE 528 U/L (73-393); POTASSIUM 3.4 MMOL/L (3.5-5.1); SODIUM 130 MMOL/L (135-145); TOTAL PROTEIN 7.6 G/DL (6.4-8.2); eGFR > 90 ML/MIN
[2020-01-24 13:15] LABS: ETHANOL 0.461 GM/DL (0.0-0.010)
--- NOTE | 2020-01-24 13:15 | NUR ---
BACK FROM CT
--- NOTE | 2020-01-24 13:32 | NUR ---
RELIEVING RN FOR LUNCH BREAK, DR CLARKE AT BEDSIDE TO REEVALUATE PT, PT IS SLEEPING, EASILY AROUSEABLE, GCS 15 ORIENTED X3, CCOLLAR REMOVED BY DR CLARKE AND TAKEN OFF TRAUMA STATUS, WILL CONTINUE TO MONITOR PT AND GAIT TEST WHEN PT IS ALERT
[2020-01-24 13:36] LABS: CLARITY,URINE CLEAR (Clear); COLOR,URINE STRAW (Yellow); GLUCOSE, URINE NEGATIVE (Neg); KETONES,URINE NEGATIVE (Neg); LEUKOCYTE ESTERASE ,URINE NEGATIVE (Neg); NITRITES, URINE NEGATIVE (Neg); OCCULT BLOOD,URINE TRACE-INTACT (Neg); PROTEIN,URINE TRACE mg/dl (Neg)
[2020-01-24 13:39] LABS: UA COLLECTION TYPE URINAL
[2020-01-24 13:42] LABS: BACTERIA,URINE NONE SEEN /HPF (Neg); HYALINE CASTS 0-3 /LPF (NEGATIVE); MUCUS STRANDS NONE SEEN /LPF (Neg); RBC,URINE 0-2 /HPF (0-2); SQUAMOUS EPITHELIAL CELL,UR NONE SEEN /LPF (FEW); WBC,URINE NONE SEEN /HPF (0-4)
[2020-01-24 13:43] LABS: URINE AMPHETAMINE SCREEN NEGATIVE (Neg); URINE BARBITUATE SCREEN NEGATIVE (Neg); URINE BENZODIAZEPINES SCREEN NEGATIVE (Neg); URINE CANNABINOID SCREEN NEGATIVE (Neg); URINE COCAINE SCREEN NEGATIVE (Neg); URINE METHADONE SCREEN NEGATIVE (Neg); URINE OPIATE SCREEN NEGATIVE (Neg); URINE PHENCYCLIDINE SCREEN NEGATIVE (Neg)
--- NOTE | 2020-01-24 18:15 | NUR ---
PT PULLED OUT IV AND URINATED ON FLOOR.
--- NOTE | 2020-01-24 19:17 | NUR ---
PT GAIT TESTED BY PCT. PT IS SHAKEY, BUT AMBULATES. MD IN ROOM TO ASSESS PATIENT
[2020-01-24 19:29] VITALS: BP 151/95
== END 2020-01-24 19:31 | disposition home or self-care (01) ==
LOC: ER 12:11
DX: S00.31XA Abrasion of nose, initial encounter (principal); F10.129 Alcohol abuse with intoxication, unspecified; R41.82 Altered mental status, unspecified; R47.81 Slurred speech; Z86.69 Personal history of other diseases of the nervous system and sense organs; Z98.890 Other specified postprocedural states; Z72.89 Other problems related to lifestyle; X58.XXXA Exposure to other specified factors, initial encounter; Y93.89 Activity, other specified; Y92.89 Other specified places as the place of occurrence of the external cause; Y99.8 Other external cause status; Y90.0 Blood alcohol level of less than 20 mg/100 ml
CPT/HCPCS: 36415; 70450; 70486; 72125; 80053; 80305; 80320; 81001; 83690; 85025; 90471; 90715; 93005; 96365; 99285; J7030

== ENCOUNTER 2020-02-25 07:31 | Emergency (ER) | payer MEDICAID ==
[~2020-02-25] VITALS: Ht 177.8 cm; Wt 67.3 kg
[2020-02-25] MEDS ORDERED: normal saline 1000ML IV soln IVB ONE (09:40)
[2020-02-25] MEDS ORDERED: phenobarbital inj 260 MG in normal saline 100ml IV soln 100 ML IV ONE (09:40)
[2020-02-25] MEDS ORDERED: TETanus/Pertussis (Acell)/Diphther VAC/PF (Tdap-Adult) 0.5ml syringe IMVAC ONE (09:40)
[2020-02-25] MEDS ORDERED: magnesium 2GM in 50ml NS 50 ML IV ONE (09:40)
[2020-02-25] MEDS ORDERED: thiamine inj. 100 MG in normal saline 100ml IV soln 99 ML IV ONE (09:40)
[2020-02-25 10:12] LABS: BASOPHILS % (AUTO) 0.5 % (0-1); EOSINOPHILS % (AUTO) 0.3 % (0-6); HEMATOCRIT 35.2 % (42.0-52.0); HEMOGLOBIN 12.1 g/dl (14.0-17.9); LYMPHOCYTES # (AUTO) 0.8 X10'3 (1.1-4.8); LYMPHOCYTES % (AUTO) 12.6 % (21-51); MEAN CORPUSCULAR HEMOGLOBIN 31.7 PG (27.0-31.0); MEAN CORPUSCULAR HGB CONC 34.2 g/dL (33.0-36.5); MEAN CORPUSCULAR VOLUME 92.7 FL (78-98); MEAN PLATELET VOLUME 5.6 FL (7.4-10.4); MONOCYTES # (AUTO) 0.7 X10'3 (0-0.9); MONOCYTES % (AUTO) 10.2 % (2-12); NEUTROPHILS % (AUTO) 76.4 % (42-75); PLATELET COUNT 275 X10'3 (140-440); RED CELL DISTRIBUTION WIDTH 16.7 % (11.5-14.5); WHITE BLOOD COUNT 6.6 X10'3 (4.5-11.0)
[2020-02-25 10:42] LABS: ALANINE AMINOTRANSFERASE 38 U/L (12-78); ALBUMIN 2.6 G/DL (3.4-5.0); ALBUMIN/GLOBULIN RATIO 0.5 (1.1-1.5); ALKALINE PHOSPHATASE 118 IU/L (46-116); ANION GAP 7 (8-16); ASPARTATE AMINO TRANSFERASE 57 U/L (10-37); BILIRUBIN,TOTAL 0.5 MG/DL (0.1-1.0); BLOOD UREA NITROGEN 4 MG/DL (7-18); BUN/CREATININE RATIO 6.3 (5.4-32.0); CALCIUM 8.2 MG/DL (8.5-10.1); CHLORIDE 101 MMOL/L (99-107); CREATININE 0.63 MG/DL (0.60-1.10); GLUCOSE 86 MG/DL (70-104); MAGNESIUM 1.8 MG/DL (1.5-2.4); POTASSIUM 3.7 MMOL/L (3.5-5.1); SODIUM 136 MMOL/L (135-145); TOTAL CARBON DIOXIDE 28.2 MMOL/L (24-32); TOTAL PROTEIN 8.3 G/DL (6.4-8.2); eGFR > 90 ML/MIN
[2020-02-25 10:45] LABS: ETHANOL 0.398 GM/DL (0.0-0.010)
[2020-02-25 11:38] LABS: URINE AMPHETAMINE SCREEN NEGATIVE (Neg); URINE BARBITUATE SCREEN NEGATIVE (Neg); URINE BENZODIAZEPINES SCREEN NEGATIVE (Neg); URINE CANNABINOID SCREEN NEGATIVE (Neg); URINE COCAINE SCREEN NEGATIVE (Neg); URINE METHADONE SCREEN NEGATIVE (Neg); URINE OPIATE SCREEN NEGATIVE (Neg); URINE PHENCYCLIDINE SCREEN NEGATIVE (Neg)
[2020-02-25] MEDS ORDERED: SULF1TAB49 PO (13:37)
[2020-02-25 14:58] VITALS: BP 140/88
== END 2020-02-25 15:02 | disposition home or self-care (01) ==
LOC: ER 07:31
DX: S06.0X0A Concussion without loss of consciousness, initial encounter (principal); S12.490A Other displaced fracture of fifth cervical vertebra, initial encounter for closed fracture; S00.91XA Abrasion of unspecified part of head, initial encounter; S41.102A Unspecified open wound of left upper arm, initial encounter; S41.101A Unspecified open wound of right upper arm, initial encounter; S81.802A Unspecified open wound, left lower leg, initial encounter; S81.801A Unspecified open wound, right lower leg, initial encounter; F10.129 Alcohol abuse with intoxication, unspecified; R32 Unspecified urinary incontinence; R04.0 Epistaxis; Z59.0 Homelessness; Z86.69 Personal history of other diseases of the nervous system and sense organs; Z79.899 Other long term (current) drug therapy; W18.39XA Other fall on same level, initial encounter; Y93.89 Activity, other specified; Y92.89 Other specified places as the place of occurrence of the external cause; Y99.8 Other external cause status; Y90.0 Blood alcohol level of less than 20 mg/100 ml
CPT/HCPCS: 36415; 70450; 70486; 72125; 80053; 80305; 80320; 82948; 83735; 85025; 90471; 90715; 93005; 96365; 96366; 96367; 96368; 99285; J3411; J3475; J7030

== ENCOUNTER 2020-02-28 01:07 | Inpatient (IN) | payer MEDICAID ==
[~2020-02-28] VITALS: Ht 177.8 cm; Wt 80.0 kg
[~2020-02-28 01:07] MED LIST changes: -CHLO25CA10 PO; -FOLI0.4T2 PO; -KETO15CR2 TP; -LISI-600 PO; -LORA-269 PO; -MULT-25 PO; +SULF1TAB49 PO; -THI100T PO
[2020-02-28] MEDS ORDERED: normal saline 1000ML IV soln IVB ONE ×2 (01:50→02:20)
[2020-02-28 02:01] LABS: BASOPHILS % (AUTO) 0.6 % (0-1); EOSINOPHILS % (AUTO) 0.2 % (0-6); HEMATOCRIT 33.2 % (42.0-52.0); HEMOGLOBIN 11.4 g/dl (14.0-17.9); LYMPHOCYTES # (AUTO) 0.9 X10'3 (1.1-4.8); MEAN CORPUSCULAR HEMOGLOBIN 32.4 PG (27.0-31.0); MEAN CORPUSCULAR HGB CONC 34.5 g/dL (33.0-36.5); MEAN CORPUSCULAR VOLUME 93.9 FL (78-98); MONOCYTES # (AUTO) 0.9 X10'3 (0-0.9); NEUTROPHILS # (AUTO) 6.5 X10'3 (1.8-7.7); NEUTROPHILS % (AUTO) 77.2 % (42-75); PLATELET COUNT 221 X10'3 (140-440); RED BLOOD COUNT 3.53 X10'6 (4.70-6.10); RED CELL DISTRIBUTION WIDTH 16.6 % (11.5-14.5); WHITE BLOOD COUNT 8.5 X10'3 (4.5-11.0)
[2020-02-28 02:08] LABS: ALANINE AMINOTRANSFERASE 33 U/L (12-78); ALBUMIN 2.5 G/DL (3.4-5.0); ALBUMIN/GLOBULIN RATIO 0.5 (1.1-1.5); ALKALINE PHOSPHATASE 113 IU/L (46-116); ANION GAP 8 (8-16); ASPARTATE AMINO TRANSFERASE 54 U/L (10-37); BILIRUBIN,TOTAL 0.9 MG/DL (0.1-1.0); BLOOD UREA NITROGEN 7 MG/DL (7-18); BUN/CREATININE RATIO 8.1 (5.4-32.0); CALCIUM 8.4 MG/DL (8.5-10.1); CHLORIDE 92 MMOL/L (99-107); CREATININE 0.86 MG/DL (0.60-1.10); GLUCOSE 85 MG/DL (70-104); POTASSIUM 3.5 MMOL/L (3.5-5.1); SODIUM 128 MMOL/L (135-145); TOTAL CARBON DIOXIDE 27.8 MMOL/L (24-32); TOTAL PROTEIN 7.9 G/DL (6.4-8.2); eGFR > 90 ML/MIN
[2020-02-28 02:09] LABS: ETHANOL < 0.010 GM/DL (0.0-0.010)
[2020-02-28] MEDS ORDERED: chlordiazePOXIDE 25mg capsule PO ONE (02:20)
[2020-02-28 02:47] LABS: URINE AMPHETAMINE SCREEN NEGATIVE (Neg); URINE BARBITUATE SCREEN POSITIVE (Neg); URINE BENZODIAZEPINES SCREEN POSITIVE (Neg); URINE CANNABINOID SCREEN NEGATIVE (Neg); URINE COCAINE SCREEN NEGATIVE (Neg); URINE METHADONE SCREEN NEGATIVE (Neg); URINE OPIATE SCREEN NEGATIVE (Neg); URINE PHENCYCLIDINE SCREEN NEGATIVE (Neg)
[2020-02-28] MEDS ORDERED: KEP500T PO (04:37)
[2020-02-28] MEDS ORDERED: phenobarbital sod 130mg/ml inj. IV ONE (04:40)
[2020-02-28] MEDS ORDERED: LORazepam 2 mg/ml vial IV ONE (04:50)
[2020-02-28] MEDS ORDERED: acetaminophen 325mg tablet PO PRN (05:00)
[2020-02-28] MEDS ORDERED: HYDROcodone/acetaminophen 5mg/325mg tablet PO PRN (05:00)
[2020-02-28] MEDS ORDERED: magnesium hydroxide 30ml (MOM) UD suspension PO PRN (05:00)
[2020-02-28] MEDS ORDERED: ondansetron/PF 4mg/2ml inj IV PRN (05:00)
[2020-02-28] MEDS ORDERED: potassium CL 10mEq/100ml bag 100 ML IV PRN ×2 (05:00)
[2020-02-28] MEDS ORDERED: LORazepam 2 mg/ml vial IV PRN ×2 (05:00→07:50)
[2020-02-28] MEDS ORDERED: potassium Cl 20 mEq SR tablet PO PRN (05:00)
[2020-02-28] MEDS ORDERED: mag hydrox/Alum hydrox/simeth 30ml oral suspension PO PRN (05:00)
[2020-02-28] MEDS: bacitracin 15gm ointment TP SCH ×4 (05:03→21:00)
--- NOTE | 2020-02-28 06:25 | NUR ---
PT SLEEPING WITHOUT COMPLAINT, VSS.
--- NOTE | 2020-02-28 06:51 | NUR ---
received report from Zamzam KRAMER in ER, pt expected to room 4020v shortly
[2020-02-28 07:30] VITALS: BP 151/92
[2020-02-28] MEDS ORDERED: haloperidol lactate 5mg/ml inj IM PRN (07:50)
[2020-02-28] MEDS ORDERED: gabapentin 400mg capsule PO SCH (08:00)
[2020-02-28] MEDS: K and/or MAG REPLACEMENT MC SCH ×2 (08:00→20:00)
[2020-02-28] MEDS: normal saline 1000ml 1,000 ML IV SCH ×3 (09:25→23:34)
[2020-02-28] MEDS: LORazepam 2 mg/ml vial IV PRN ×3 (09:28→19:21)
[2020-02-28] MEDS: thiamine 100mg tablet PO SCH (09:28)
[2020-02-28] MEDS: levetiracetam 250mg tablet PO SCH (09:29)
[2020-02-28 10:00] VITALS: BP 156/95
--- NOTE | 2020-02-28 13:31 | NUR ---
Pt admit today with EtOH withdrawal, no mention of infection in H&P. Pending physical assessment. [facility] has been consulted for multiple abrasions, pending assessment. Will continue to follow and monitor need for nutrition intervention. Addendum: 02/28/20 at [address] Amended: Links added.
[2020-02-28 17:00] VITALS: BP 123/82
--- NOTE | 2020-02-28 18:25 | NUR ---
Patient in room ORTHO 4021. I have received report from Ryanne KRAMER and had the opportunity to ask questions and assume patient care.
[2020-02-28] MEDS: gabapentin 300mg capsule PO SCH (19:21)
[2020-02-28 22:00] VITALS: BP 140/80
[2020-02-28] MEDS: piperacillin/tazo 4.5gm/100ml 100 ML IV SCH (23:34)
[2020-02-29] MEDS: LORazepam 2 mg/ml vial IV PRN ×4 (03:16→22:13)
[2020-02-29 06:00] VITALS: BP 147/96
--- NOTE | 2020-02-29 06:00 | NUR ---
Problems reprioritized. Patient report given, questions answered & plan of care reviewed with Ryanne KRAMER.
[2020-02-29 06:24] LABS: ALANINE AMINOTRANSFERASE 73 U/L (12-78); ALBUMIN 2.1 G/DL (3.4-5.0); ALBUMIN/GLOBULIN RATIO 0.4 (1.1-1.5); ALKALINE PHOSPHATASE 95 IU/L (46-116); ANION GAP 11 (8-16); ASPARTATE AMINO TRANSFERASE 175 U/L (10-37); BILIRUBIN,TOTAL 1.1 MG/DL (0.1-1.0); BLOOD UREA NITROGEN 8 MG/DL (7-18); BUN/CREATININE RATIO 10.7 (5.4-32.0); CALCIUM 8.2 MG/DL (8.5-10.1); CHLORIDE 96 MMOL/L (99-107); CREATININE 0.75 MG/DL (0.60-1.10); GLUCOSE 87 MG/DL (70-104); POTASSIUM 3.1 MMOL/L (3.5-5.1); SODIUM 132 MMOL/L (135-145); TOTAL CARBON DIOXIDE 25.1 MMOL/L (24-32); TOTAL PROTEIN 6.9 G/DL (6.4-8.2); eGFR > 90 ML/MIN
[2020-02-29 06:43] LABS: BASOPHILS % (AUTO) 0.5 % (0-1); EOSINOPHILS # (AUTO) 0.1 X10'3 (0-0.9); EOSINOPHILS % (AUTO) 0.9 % (0-6); HEMATOCRIT 30.3 % (42.0-52.0); HEMOGLOBIN 10.5 g/dl (14.0-17.9); LYMPHOCYTES # (AUTO) 0.9 X10'3 (1.1-4.8); LYMPHOCYTES % (AUTO) 14.6 % (21-51); MEAN CORPUSCULAR HEMOGLOBIN 32.1 PG (27.0-31.0); MEAN CORPUSCULAR HGB CONC 34.5 g/dL (33.0-36.5); MEAN PLATELET VOLUME 6.3 FL (7.4-10.4); MONOCYTES # (AUTO) 0.5 X10'3 (0-0.9); MONOCYTES % (AUTO) 9.1 % (2-12); NEUTROPHILS # (AUTO) 4.4 X10'3 (1.8-7.7); NEUTROPHILS % (AUTO) 74.9 % (42-75); PLATELET COUNT 161 X10'3 (140-440); RED BLOOD COUNT 3.26 X10'6 (4.70-6.10); RED CELL DISTRIBUTION WIDTH 15.8 % (11.5-14.5); WHITE BLOOD COUNT 5.9 X10'3 (4.5-11.0)
[2020-02-29] MEDS: K and/or MAG REPLACEMENT MC SCH ×2 (08:00→20:59)
[2020-02-29] MEDS: bacitracin 15gm ointment TP SCH ×3 (08:00→20:53)
[2020-02-29] MEDS: gabapentin 300mg capsule PO SCH ×2 (09:17→20:42)
[2020-02-29] MEDS: thiamine 100mg tablet PO SCH (09:17)
[2020-02-29] MEDS: levetiracetam 250mg tablet PO SCH (09:17)
[2020-02-29] MEDS: enoxaparin 40mg/0.4ml syringe SUBCUT SCH (09:18)
[2020-02-29] MEDS: normal saline 1000ml 1,000 ML IV SCH ×2 (09:18→23:55)
[2020-02-29] MEDS: piperacillin/tazo 4.5gm/100ml 100 ML IV SCH ×2 (09:19→16:36)
[2020-02-29 09:56] VITALS: BP 155/96
[2020-02-29] MEDS: potassium Cl 20 mEq SR tablet PO PRN ×2 (16:36→20:42)
[2020-02-29 18:00] VITALS: BP 145/102
[2020-02-29] MEDS: chlordiazePOXIDE 25mg capsule PO SCH (20:42)
[2020-02-29] MEDS: lactobacillus rhamnosus 10,000 MMU CELLS/CAPSULE PO SCH (20:42)
[2020-02-29 22:00] VITALS: BP 168/109
[2020-03-01] MEDS: piperacillin/tazo 4.5gm/100ml 100 ML IV SCH ×2 (00:16→08:35)
[2020-03-01] MEDS: potassium Cl 20 mEq SR tablet PO PRN (02:17)
[2020-03-01] MEDS ORDERED: LORazepam 1 MG tablet PO PRN (05:00)
[2020-03-01] MEDS ORDERED: LORazepam 2 mg/ml vial IV PRN (05:00)
--- NOTE | 2020-03-01 05:12 | NUR ---
reviewed and agree with SRN assessment
[2020-03-01 06:00] VITALS: BP 147/88
--- NOTE | 2020-03-01 06:24 | NUR ---
Problems reprioritized. Patient report given, questions answered & plan of care reviewed with NIA Braden.
[2020-03-01 06:34] LABS: BASOPHILS % (AUTO) 0.5 % (0-1); EOSINOPHILS # (AUTO) 0.1 X10'3 (0-0.9); EOSINOPHILS % (AUTO) 1.6 % (0-6); HEMATOCRIT 29.8 % (42.0-52.0); LYMPHOCYTES % (AUTO) 21.1 % (21-51); MEAN CORPUSCULAR HEMOGLOBIN 31.7 PG (27.0-31.0); MEAN CORPUSCULAR HGB CONC 33.8 g/dL (33.0-36.5); MEAN PLATELET VOLUME 6.5 FL (7.4-10.4); MONOCYTES # (AUTO) 0.6 X10'3 (0-0.9); MONOCYTES % (AUTO) 13.5 % (2-12); NEUTROPHILS # (AUTO) 2.9 X10'3 (1.8-7.7); NEUTROPHILS % (AUTO) 63.3 % (42-75); PLATELET COUNT 182 X10'3 (140-440); RED BLOOD COUNT 3.16 X10'6 (4.70-6.10); RED CELL DISTRIBUTION WIDTH 15.6 % (11.5-14.5); WHITE BLOOD COUNT 4.6 X10'3 (4.5-11.0)
[2020-03-01 06:46] LABS: ALANINE AMINOTRANSFERASE 81 U/L (12-78); ALBUMIN 2.1 G/DL (3.4-5.0); ALBUMIN/GLOBULIN RATIO 0.4 (1.1-1.5); ALKALINE PHOSPHATASE 95 IU/L (46-116); ANION GAP 7 (8-16); ASPARTATE AMINO TRANSFERASE 98 U/L (10-37); BILIRUBIN,TOTAL 0.6 MG/DL (0.1-1.0); BLOOD UREA NITROGEN 9 MG/DL (7-18); BUN/CREATININE RATIO 10.1 (5.4-32.0); CALCIUM 8.5 MG/DL (8.5-10.1); CHLORIDE 99 MMOL/L (99-107); CREATININE 0.89 MG/DL (0.60-1.10); GLUCOSE 142 MG/DL (70-104); POTASSIUM 3.5 MMOL/L (3.5-5.1); SODIUM 133 MMOL/L (135-145); eGFR 89 ML/MIN
[2020-03-01] MEDS: bacitracin 15gm ointment TP SCH ×3 (08:00→20:08)
[2020-03-01] MEDS: K and/or MAG REPLACEMENT MC SCH ×2 (08:28→20:00)
[2020-03-01] MEDS: levetiracetam 250mg tablet PO SCH (08:35)
[2020-03-01] MEDS: thiamine 100mg tablet PO SCH (08:35)
[2020-03-01] MEDS: lactobacillus rhamnosus 10,000 MMU CELLS/CAPSULE PO SCH ×2 (08:35→20:08)
[2020-03-01] MEDS: gabapentin 300mg capsule PO SCH ×2 (08:35→20:08)
[2020-03-01] MEDS: chlordiazePOXIDE 25mg capsule PO SCH ×3 (08:35→20:08)
[2020-03-01] MEDS: enoxaparin 40mg/0.4ml syringe SUBCUT SCH (08:36)
[2020-03-01] MEDS: normal saline 1000ml 1,000 ML IV SCH ×3 (09:55→23:48)
[2020-03-01 10:00] VITALS: BP 154/95
[2020-03-01] MEDS: ampicillin inj 2 GM in normal saline 100ml IV soln 100 ML IV SCH ×2 (14:07→20:08)
[2020-03-01 18:00] VITALS: BP 166/91
--- NOTE | 2020-03-01 18:15 | NUR ---
Patient in room ORTHO 4021. I have received report from NIA Coleman and had the opportunity to ask questions and assume patient care.
[2020-03-01 22:00] VITALS: BP 154/97
[2020-03-02] MEDS: ampicillin inj 2 GM in normal saline 100ml IV soln 100 ML IV SCH ×4 (01:38→20:17)
--- NOTE | 2020-03-02 05:55 | NUR ---
Problems reprioritized. Patient report given, questions answered & plan of care reviewed with NIA Coleman.
[2020-03-02 06:00] VITALS: BP 158/100
[2020-03-02 07:08] LABS: BASOPHILS % (AUTO) 0.7 % (0-1); EOSINOPHILS # (AUTO) 0.1 X10'3 (0-0.9); EOSINOPHILS % (AUTO) 2.9 % (0-6); HEMATOCRIT 30.5 % (42.0-52.0); HEMOGLOBIN 10.5 g/dl (14.0-17.9); LYMPHOCYTES # (AUTO) 1.1 X10'3 (1.1-4.8); LYMPHOCYTES % (AUTO) 28.6 % (21-51); MEAN CORPUSCULAR HEMOGLOBIN 32.3 PG (27.0-31.0); MEAN CORPUSCULAR HGB CONC 34.4 g/dL (33.0-36.5); MEAN CORPUSCULAR VOLUME 93.9 FL (78-98); MEAN PLATELET VOLUME 6.2 FL (7.4-10.4); MONOCYTES # (AUTO) 0.6 X10'3 (0-0.9); MONOCYTES % (AUTO) 15.8 % (2-12); PLATELET COUNT 213 X10'3 (140-440); RED BLOOD COUNT 3.24 X10'6 (4.70-6.10); RED CELL DISTRIBUTION WIDTH 15.3 % (11.5-14.5); WHITE BLOOD COUNT 3.9 X10'3 (4.5-11.0)
[2020-03-02 07:15] LABS: ALANINE AMINOTRANSFERASE 64 U/L (12-78); ALBUMIN 2.3 G/DL (3.4-5.0); ALBUMIN/GLOBULIN RATIO 0.4 (1.1-1.5); ALKALINE PHOSPHATASE 92 IU/L (46-116); ANION GAP 6 (8-16); ASPARTATE AMINO TRANSFERASE 67 U/L (10-37); BILIRUBIN,TOTAL 0.4 MG/DL (0.1-1.0); BLOOD UREA NITROGEN 6 MG/DL (7-18); BUN/CREATININE RATIO 8.6 (5.4-32.0); CALCIUM 8.5 MG/DL (8.5-10.1); CHLORIDE 96 MMOL/L (99-107); GLUCOSE 111 MG/DL (70-104); POTASSIUM 3.3 MMOL/L (3.5-5.1); SODIUM 131 MMOL/L (135-145); TOTAL CARBON DIOXIDE 28.9 MMOL/L (24-32); TOTAL PROTEIN 7.5 G/DL (6.4-8.2); eGFR > 90 ML/MIN
[2020-03-02 07:58] LABS: TOTAL CELLS COUNTED 100
[2020-03-02 07:59] LABS: ANISOCYTOSIS 1+; PLATELET ESTIMATE NORMAL
[2020-03-02] MEDS: bacitracin 15gm ointment TP SCH ×3 (08:00→20:23)
[2020-03-02] MEDS: K and/or MAG REPLACEMENT MC SCH ×3 (08:00→20:00)
[2020-03-02] MEDS: lactobacillus rhamnosus 10,000 MMU CELLS/CAPSULE PO SCH ×2 (08:35→20:17)
[2020-03-02] MEDS: levetiracetam 250mg tablet PO SCH (08:35)
[2020-03-02] MEDS: thiamine 100mg tablet PO SCH (08:35)
[2020-03-02] MEDS: chlordiazePOXIDE 25mg capsule PO SCH ×3 (08:35→20:17)
[2020-03-02] MEDS: gabapentin 300mg capsule PO SCH ×2 (08:35→20:17)
[2020-03-02] MEDS: enoxaparin 40mg/0.4ml syringe SUBCUT SCH (08:36)
[2020-03-02] MEDS ORDERED: potassium Cl 20 mEq SR tablet PO PRN (08:40)
[2020-03-02] MEDS ORDERED: potassium CL 10mEq/100ml bag 100 ML IV PRN (08:40)
[2020-03-02] MEDS ORDERED: magnesium 4gm in 100ml NS 100 ML IV PRN (08:40)
[2020-03-02 10:00] VITALS: BP 114/70
[2020-03-02] MEDS: potassium Cl 20 mEq SR tablet PO PRN ×3 (13:05→20:17)
[2020-03-02] MEDS: normal saline 1000ml 1,000 ML IV SCH ×2 (15:55→20:15)
[2020-03-02 18:00] VITALS: BP 164/93
--- NOTE | 2020-03-02 18:10 | NUR ---
Patient in room ORTHO 4021. I have received report from NIA Coleman and had the opportunity to ask questions and assume patient care.
[2020-03-02 22:00] VITALS: BP 153/86
[2020-03-03] MEDS: ampicillin inj 2 GM in normal saline 100ml IV soln 100 ML IV SCH ×4 (02:13→20:05)
[2020-03-03] MEDS ORDERED: LORazepam 1 MG tablet PO PRN (05:00)
[2020-03-03 06:00] VITALS: BP 151/95
--- NOTE | 2020-03-03 06:27 | NUR ---
Problems reprioritized. Patient report given, questions answered & plan of care reviewed with NIA Coleman.
[2020-03-03 07:28] LABS: BASOPHILS % (AUTO) 0.7 % (0-1); EOSINOPHILS # (AUTO) 0.1 X10'3 (0-0.9); EOSINOPHILS % (AUTO) 2.5 % (0-6); HEMATOCRIT 30.5 % (42.0-52.0); HEMOGLOBIN 10.6 g/dl (14.0-17.9); LYMPHOCYTES # (AUTO) 1.1 X10'3 (1.1-4.8); LYMPHOCYTES % (AUTO) 23.5 % (21-51); MEAN CORPUSCULAR HEMOGLOBIN 32.6 PG (27.0-31.0); MEAN CORPUSCULAR HGB CONC 34.7 g/dL (33.0-36.5); MEAN PLATELET VOLUME 6.3 FL (7.4-10.4); MONOCYTES # (AUTO) 0.7 X10'3 (0-0.9); MONOCYTES % (AUTO) 16.3 % (2-12); NEUTROPHILS # (AUTO) 2.6 X10'3 (1.8-7.7); PLATELET COUNT 245 X10'3 (140-440); RED BLOOD COUNT 3.24 X10'6 (4.70-6.10); RED CELL DISTRIBUTION WIDTH 15.5 % (11.5-14.5); WHITE BLOOD COUNT 4.6 X10'3 (4.5-11.0)
[2020-03-03 07:36] LABS: ALANINE AMINOTRANSFERASE 65 U/L (12-78); ALBUMIN 2.3 G/DL (3.4-5.0); ALBUMIN/GLOBULIN RATIO 0.5 (1.1-1.5); ALKALINE PHOSPHATASE 83 IU/L (46-116); ANION GAP 5 (8-16); ASPARTATE AMINO TRANSFERASE 46 U/L (10-37); BILIRUBIN,TOTAL 0.3 MG/DL (0.1-1.0); BLOOD UREA NITROGEN 6 MG/DL (7-18); CALCIUM 8.9 MG/DL (8.5-10.1); CHLORIDE 101 MMOL/L (99-107); CREATININE 0.67 MG/DL (0.60-1.10); GLUCOSE 85 MG/DL (70-104); MAGNESIUM 1.3 MG/DL (1.5-2.4); POTASSIUM 3.8 MMOL/L (3.5-5.1); SODIUM 135 MMOL/L (135-145); TOTAL CARBON DIOXIDE 28.6 MMOL/L (24-32); TOTAL PROTEIN 7.3 G/DL (6.4-8.2); eGFR > 90 ML/MIN
[2020-03-03] MEDS: lactobacillus rhamnosus 10,000 MMU CELLS/CAPSULE PO SCH ×2 (07:48→20:04)
[2020-03-03] MEDS: levetiracetam 250mg tablet PO SCH (07:48)
[2020-03-03] MEDS: thiamine 100mg tablet PO SCH (07:48)
[2020-03-03] MEDS: chlordiazePOXIDE 25mg capsule PO SCH ×3 (07:49→20:04)
[2020-03-03] MEDS: gabapentin 300mg capsule PO SCH ×2 (07:49→20:04)
[2020-03-03] MEDS: normal saline 1000ml 1,000 ML IV SCH ×2 (07:54→20:05)
[2020-03-03] MEDS: enoxaparin 40mg/0.4ml syringe SUBCUT SCH (07:57)
[2020-03-03] MEDS: K and/or MAG REPLACEMENT MC SCH ×4 (08:00→20:00)
[2020-03-03] MEDS: bacitracin 15gm ointment TP SCH ×3 (08:00→21:00)
[2020-03-03] MEDS: magnesium Cl slow-release 64mg tablet PO PRN ×2 (08:10→20:04)
[2020-03-03 10:00] VITALS: BP 112/69
--- NOTE | 2020-03-03 12:18 | NUR ---
Initial: Pt admit DX etoh withdrawal, metabolic encephalopathy r/t etoh still experiencing withdrawals w/ hx homeless/etoh abuse per MD note. Cellulitis w/ abrasions all over and sacral stage II PU per WOC/MD notes. PO 100% avg regular meals so far this admit caution tray without knives; to send double eggs WB and double meats BIDLD in addition to chopped meats. Dietary notified. LBM 03/02. Receiving thiamin for etoh; MAXIM d/w RN regarding folic/MVI supplementation since still given hx if MD agreeable. Will continue to monitor. Rec: 1. continue regular diet; chopped meats; double eggs WB/double meats BIDLD 2. routine bowel care 3. thiamin, folic, MVI for etoh hx 4. scaled wt this admit Addendum: 03/03/20 at [address] Amended: Links added.
[2020-03-03] MEDS: lisinopril 20mg tablet PO SCH (14:11)
[2020-03-03 18:00] VITALS: BP 145/87
--- NOTE | 2020-03-03 18:10 | NUR ---
Patient in room ORTHO 4021. I have received report from NIA Coleman and had the opportunity to ask questions and assume patient care.
[2020-03-03 22:00] VITALS: BP 154/90
[2020-03-04] MEDS: ampicillin inj 2 GM in normal saline 100ml IV soln 100 ML IV SCH ×2 (01:54→08:53)
[2020-03-04 06:00] VITALS: BP 168/100
--- NOTE | 2020-03-04 06:13 | NUR ---
Problems reprioritized. Patient report given, questions answered & plan of care reviewed with NIA Devries.
--- NOTE | 2020-03-04 06:15 | NUR ---
received report from opal heredia
[2020-03-04 06:26] LABS: BASOPHILS % (AUTO) 0.7 % (0-1); EOSINOPHILS # (AUTO) 0.1 X10'3 (0-0.9); EOSINOPHILS % (AUTO) 2.4 % (0-6); HEMATOCRIT 30.5 % (42.0-52.0); HEMOGLOBIN 10.5 g/dl (14.0-17.9); LYMPHOCYTES # (AUTO) 1.4 X10'3 (1.1-4.8); LYMPHOCYTES % (AUTO) 26.8 % (21-51); MEAN CORPUSCULAR HEMOGLOBIN 32.6 PG (27.0-31.0); MEAN CORPUSCULAR HGB CONC 34.2 g/dL (33.0-36.5); MEAN CORPUSCULAR VOLUME 95.4 FL (78-98); MEAN PLATELET VOLUME 6.5 FL (7.4-10.4); MONOCYTES # (AUTO) 0.8 X10'3 (0-0.9); MONOCYTES % (AUTO) 15.9 % (2-12); NEUTROPHILS # (AUTO) 2.7 X10'3 (1.8-7.7); NEUTROPHILS % (AUTO) 54.2 % (42-75); PLATELET COUNT 285 X10'3 (140-440)
[2020-03-04 06:29] LABS: ALANINE AMINOTRANSFERASE 56 U/L (12-78); ALBUMIN 2.4 G/DL (3.4-5.0); ALBUMIN/GLOBULIN RATIO 0.5 (1.1-1.5); ALKALINE PHOSPHATASE 77 IU/L (46-116); ANION GAP 8 (8-16); ASPARTATE AMINO TRANSFERASE 39 U/L (10-37); BILIRUBIN,TOTAL 0.3 MG/DL (0.1-1.0); BLOOD UREA NITROGEN 9 MG/DL (7-18); BUN/CREATININE RATIO 11.5 (5.4-32.0); CALCIUM 8.8 MG/DL (8.5-10.1); CHLORIDE 99 MMOL/L (99-107); CREATININE 0.78 MG/DL (0.60-1.10); GLUCOSE 107 MG/DL (70-104); MAGNESIUM 1.4 MG/DL (1.5-2.4); SODIUM 135 MMOL/L (135-145); TOTAL CARBON DIOXIDE 27.8 MMOL/L (24-32); TOTAL PROTEIN 7.5 G/DL (6.4-8.2); eGFR > 90 ML/MIN
[2020-03-04] MEDS: K and/or MAG REPLACEMENT MC SCH ×4 (08:00→20:00)
[2020-03-04] MEDS: lactobacillus rhamnosus 10,000 MMU CELLS/CAPSULE PO SCH ×2 (08:45→20:36)
[2020-03-04] MEDS: gabapentin 300mg capsule PO SCH ×2 (08:46→20:36)
[2020-03-04] MEDS: levetiracetam 250mg tablet PO SCH (08:47)
[2020-03-04] MEDS: thiamine 100mg tablet PO SCH (08:47)
[2020-03-04] MEDS: lisinopril 20mg tablet PO SCH (08:48)
[2020-03-04] MEDS: chlordiazePOXIDE 25mg capsule PO SCH ×3 (08:48→20:35)
[2020-03-04] MEDS: enoxaparin 40mg/0.4ml syringe SUBCUT SCH (08:50)
[2020-03-04] MEDS: normal saline 1000ml 1,000 ML IV SCH ×3 (08:53→19:06)
[2020-03-04] MEDS: bacitracin 15gm ointment TP SCH ×3 (08:54→21:00)
[2020-03-04] MEDS: magnesium Cl slow-release 64mg tablet PO PRN ×2 (08:57→12:43)
[2020-03-04 10:00] VITALS: BP 130/90
[2020-03-04] MEDS: amLODIPine 5mg tablet PO SCH (10:55)
[2020-03-04] MEDS: levoFLOXACIN 500mg tablet PO SCH (10:56)
--- NOTE | 2020-03-04 12:14 | NUR ---
Student documentation: I have reviewed all interventions, assessments performed and documented by Artemio Guillaume. Student Medication Administration: For this medication-pass time frame, all medication were reviewed, dispensed, administered and documented per hospital policy by Artemio Guillaume.
--- NOTE | 2020-03-04 15:42 | NUR ---
Intermittently incontinent, uses urinal at times, stands and walks with assistance to bathroom at times. Addendum: 03/04/20 at 1548 by Jesus OVALLE Amended: Links added.
--- NOTE | 2020-03-04 17:37 | NUR ---
Student documentation: I have reviewed assessment performed and documented by Jesus Calvin [facility].
[2020-03-04 18:12] VITALS: BP 168/96
--- NOTE | 2020-03-04 18:16 | NUR ---
gave report to opal vazquez
--- NOTE | 2020-03-04 18:27 | NUR ---
Patient in room ORTHO 4021. I have received report from Kayce KRAMER and had the opportunity to ask questions and assume patient care.
--- NOTE | 2020-03-04 21:45 | NUR ---
Received report and assumed pt care.
[2020-03-04 22:00] VITALS: BP 146/77
[2020-03-05 06:00] VITALS: BP 129/82
--- NOTE | 2020-03-05 06:05 | NUR ---
received report from opal petersen
[2020-03-05 06:59] LABS: MAGNESIUM 1.6 MG/DL (1.5-2.4); POTASSIUM 3.6 MMOL/L (3.5-5.1)
[2020-03-05] MEDS: K and/or MAG REPLACEMENT MC SCH ×4 (07:45→19:46)
[2020-03-05] MEDS: bacitracin 15gm ointment TP SCH ×3 (07:47→21:00)
[2020-03-05] MEDS: lactobacillus rhamnosus 10,000 MMU CELLS/CAPSULE PO SCH ×2 (08:01→19:47)
[2020-03-05] MEDS: levetiracetam 250mg tablet PO SCH (08:02)
[2020-03-05] MEDS: chlordiazePOXIDE 25mg capsule PO SCH (08:03)
[2020-03-05] MEDS: thiamine 100mg tablet PO SCH (08:03)
[2020-03-05] MEDS: gabapentin 300mg capsule PO SCH ×2 (08:03→19:47)
[2020-03-05] MEDS: lisinopril 20mg tablet PO SCH (08:04)
[2020-03-05] MEDS: amLODIPine 5mg tablet PO SCH (08:05)
[2020-03-05] MEDS: enoxaparin 40mg/0.4ml syringe SUBCUT SCH (08:06)
[2020-03-05 10:00] VITALS: BP 132/85
[2020-03-05] MEDS: levoFLOXACIN 500mg tablet PO SCH (10:59)
--- NOTE | 2020-03-05 12:23 | NUR ---
Student documentation: I have reviewed all interventions, assessments performed and documented by Artemio MA.
[2020-03-05] MEDS: normal saline 1000ml 1,000 ML IV SCH (16:52)
--- NOTE | 2020-03-05 17:37 | NUR ---
Student documentation: I have reviewed assessment performed and documented by Jesus Calvin [facility].
[2020-03-05 18:00] VITALS: BP 152/89
--- NOTE | 2020-03-05 18:05 | NUR ---
GAVE REPORT TO NIA SMITH
--- NOTE | 2020-03-05 18:48 | NUR ---
Patient in room ORTHO 4021. I have received report from Kayce KRAMER and had the opportunity to ask questions and assume patient care.
[2020-03-05] MEDS: chlordiazePOXIDE 25mg capsule PO PRN (19:50)
[2020-03-05 22:00] VITALS: BP 113/94
[2020-03-06] MEDS: normal saline 1000ml 1,000 ML IV SCH ×2 (03:09→16:10)
[2020-03-06 06:00] VITALS: BP 138/90
--- NOTE | 2020-03-06 06:36 | NUR ---
Problems reprioritized. Patient report given, questions answered & plan of care reviewed with Lina KRAMER.
[2020-03-06 07:16] LABS: MAGNESIUM 1.7 MG/DL (1.5-2.4); POTASSIUM 3.9 MMOL/L (3.5-5.1)
[2020-03-06] MEDS: gabapentin 300mg capsule PO SCH ×2 (07:55→21:25)
[2020-03-06] MEDS: levetiracetam 250mg tablet PO SCH (07:55)
[2020-03-06] MEDS: thiamine 100mg tablet PO SCH (07:55)
[2020-03-06] MEDS: lisinopril 20mg tablet PO SCH (07:55)
[2020-03-06] MEDS: lactobacillus rhamnosus 10,000 MMU CELLS/CAPSULE PO SCH ×2 (07:55→21:25)
[2020-03-06] MEDS: amLODIPine 5mg tablet PO SCH (07:56)
[2020-03-06] MEDS: enoxaparin 40mg/0.4ml syringe SUBCUT SCH (07:56)
[2020-03-06] MEDS: K and/or MAG REPLACEMENT MC SCH ×4 (08:00→20:00)
[2020-03-06] MEDS: bacitracin 15gm ointment TP SCH ×3 (08:00→21:00)
[2020-03-06] MEDS: chlordiazePOXIDE 25mg capsule PO PRN (08:00)
[2020-03-06 10:00] VITALS: BP 118/67
[2020-03-06] MEDS ORDERED: LORazepam 1 MG tablet PO PRN (12:10)
[2020-03-06] MEDS ORDERED: diphenhydrAMINE 25mg capsule PO PRN (15:00)
[2020-03-06] MEDS: amoxicillin 250mg capsule PO SCH ×2 (16:09→23:51)
[2020-03-06 18:00] VITALS: BP 107/75
--- NOTE | 2020-03-06 18:29 | NUR ---
Problems reprioritized. Patient report given, questions answered & plan of care reviewed with Parris KRAMER.
--- NOTE | 2020-03-06 18:41 | NUR ---
Patient in room ORTHO 4021. I have received report from Lina KRAMER and had the opportunity to ask questions and assume patient care.
[2020-03-06 22:00] VITALS: BP 126/80
[2020-03-07] MEDS: normal saline 1000ml 1,000 ML IV SCH ×2 (04:11→12:13)
--- NOTE | 2020-03-07 06:11 | NUR ---
Problems reprioritized. Patient report given, questions answered & plan of care reviewed with Lina KRAMER.
[2020-03-07 06:33] VITALS: BP 120/67
[2020-03-07 06:42] LABS: MAGNESIUM 1.6 MG/DL (1.5-2.4); POTASSIUM 3.9 MMOL/L (3.5-5.1)
[2020-03-07] MEDS: enoxaparin 40mg/0.4ml syringe SUBCUT SCH (07:46)
[2020-03-07] MEDS: lactobacillus rhamnosus 10,000 MMU CELLS/CAPSULE PO SCH ×2 (07:46→19:19)
[2020-03-07] MEDS: levetiracetam 250mg tablet PO SCH (07:46)
[2020-03-07] MEDS: gabapentin 300mg capsule PO SCH ×2 (07:46→19:19)
[2020-03-07] MEDS: amoxicillin 250mg capsule PO SCH ×3 (07:46→23:46)
[2020-03-07] MEDS: thiamine 100mg tablet PO SCH (07:46)
[2020-03-07] MEDS: bacitracin 15gm ointment TP SCH ×3 (07:47→21:00)
[2020-03-07] MEDS: amLODIPine 5mg tablet PO SCH (07:47)
[2020-03-07] MEDS: lisinopril 20mg tablet PO SCH (07:47)
[2020-03-07] MEDS: K and/or MAG REPLACEMENT MC SCH ×4 (07:51→19:20)
[2020-03-07 10:00] VITALS: BP 126/84
[2020-03-07 18:00] VITALS: BP 142/85
--- NOTE | 2020-03-07 18:11 | NUR ---
Problems reprioritized. Patient report given, questions answered & plan of care reviewed with Parris KRAMER.
--- NOTE | 2020-03-07 18:20 | NUR ---
Patient in room ORTHO 4021. I have received report from Lina KRAMER and had the opportunity to ask questions and assume patient care.
[2020-03-07 22:00] VITALS: BP 129/66
[2020-03-08] MEDS: normal saline 1000ml 1,000 ML IV SCH (03:20)
[2020-03-08 05:43] LABS: BASOPHILS % (AUTO) 0.4 % (0-1); EOSINOPHILS # (AUTO) 0.2 X10'3 (0-0.9); EOSINOPHILS % (AUTO) 2.8 % (0-6); HEMATOCRIT 31.7 % (42.0-52.0); HEMOGLOBIN 10.7 g/dl (14.0-17.9); LYMPHOCYTES # (AUTO) 2.1 X10'3 (1.1-4.8); LYMPHOCYTES % (AUTO) 32.9 % (21-51); MEAN CORPUSCULAR HEMOGLOBIN 32.1 PG (27.0-31.0); MEAN CORPUSCULAR HGB CONC 33.8 g/dL (33.0-36.5); MEAN CORPUSCULAR VOLUME 95.2 FL (78-98); MEAN PLATELET VOLUME 6.8 FL (7.4-10.4); MONOCYTES % (AUTO) 15.1 % (2-12); NEUTROPHILS # (AUTO) 3.2 X10'3 (1.8-7.7); NEUTROPHILS % (AUTO) 48.8 % (42-75); PLATELET COUNT 490 X10'3 (140-440); RED BLOOD COUNT 3.33 X10'6 (4.70-6.10); RED CELL DISTRIBUTION WIDTH 15.6 % (11.5-14.5); WHITE BLOOD COUNT 6.5 X10'3 (4.5-11.0)
[2020-03-08 06:00] VITALS: BP 143/74
[2020-03-08 06:08] LABS: ALBUMIN 2.8 G/DL (3.4-5.0); ANION GAP 4 (8-16); BLOOD UREA NITROGEN 13 MG/DL (7-18); BUN/CREATININE RATIO 15.9 (5.4-32.0); CALCIUM 9.2 MG/DL (8.5-10.1); CHLORIDE 101 MMOL/L (99-107); CREATININE 0.82 MG/DL (0.60-1.10); GLUCOSE 86 MG/DL (70-104); POTASSIUM 3.7 MMOL/L (3.5-5.1); SODIUM 135 MMOL/L (135-145); eGFR > 90 ML/MIN
--- NOTE | 2020-03-08 06:26 | NUR ---
Problems reprioritized. Patient report given, questions answered & plan of care reviewed with Virginia KRAMER.
[2020-03-08] MEDS: lactobacillus rhamnosus 10,000 MMU CELLS/CAPSULE PO SCH ×2 (07:58→19:29)
[2020-03-08] MEDS: levetiracetam 250mg tablet PO SCH (07:58)
[2020-03-08] MEDS: gabapentin 300mg capsule PO SCH ×2 (07:59→19:29)
[2020-03-08] MEDS: bacitracin 15gm ointment TP SCH ×3 (08:00→21:00)
[2020-03-08] MEDS: K and/or MAG REPLACEMENT MC SCH ×4 (08:00→20:00)
[2020-03-08] MEDS: amLODIPine 5mg tablet PO SCH (08:01)
[2020-03-08] MEDS: amoxicillin 250mg capsule PO SCH ×3 (08:02→23:41)
[2020-03-08] MEDS: thiamine 100mg tablet PO SCH (08:02)
[2020-03-08] MEDS: lisinopril 20mg tablet PO SCH (08:02)
[2020-03-08] MEDS: enoxaparin 40mg/0.4ml syringe SUBCUT SCH (08:03)
[2020-03-08 08:42] LABS: MAGNESIUM 1.7 MG/DL (1.5-2.4)
[2020-03-08 10:00] VITALS: BP 108/67
[2020-03-08 18:00] VITALS: BP 107/75
--- NOTE | 2020-03-08 18:32 | NUR ---
Problems reprioritized. Patient report given, questions answered & plan of care reviewed with NIA Khan.
[2020-03-08 21:42] VITALS: BP 112/74
[2020-03-09 06:00] VITALS: BP 113/70
[2020-03-09] MEDS: K and/or MAG REPLACEMENT MC SCH ×4 (08:00→19:38)
[2020-03-09] MEDS: bacitracin 15gm ointment TP SCH ×3 (08:00→20:26)
[2020-03-09] MEDS: enoxaparin 40mg/0.4ml syringe SUBCUT SCH (09:25)
[2020-03-09] MEDS: lactobacillus rhamnosus 10,000 MMU CELLS/CAPSULE PO SCH ×2 (09:26→20:27)
[2020-03-09] MEDS: amoxicillin 250mg capsule PO SCH ×2 (09:27→16:00)
[2020-03-09] MEDS: amLODIPine 5mg tablet PO SCH (09:28)
[2020-03-09] MEDS: lisinopril 20mg tablet PO SCH (09:28)
[2020-03-09] MEDS: levetiracetam 250mg tablet PO SCH (09:28)
[2020-03-09] MEDS: gabapentin 300mg capsule PO SCH ×2 (09:28→20:27)
[2020-03-09] MEDS: thiamine 100mg tablet PO SCH (09:29)
[2020-03-09 10:00] VITALS: BP 125/71
[2020-03-09 18:00] VITALS: BP 130/86
[2020-03-09 22:00] VITALS: BP 133/80
[2020-03-10] MEDS: amoxicillin 250mg capsule PO SCH ×4 (00:57→23:27)
[2020-03-10 06:00] VITALS: BP 133/78
--- NOTE | 2020-03-10 06:09 | NUR ---
REPORT GIVEN TO NIA LOPEZ.
[2020-03-10] MEDS: bacitracin 15gm ointment TP SCH ×3 (08:00→20:42)
[2020-03-10] MEDS: K and/or MAG REPLACEMENT MC SCH ×4 (08:00→19:15)
[2020-03-10] MEDS: gabapentin 300mg capsule PO SCH ×2 (08:55→20:42)
[2020-03-10] MEDS: levetiracetam 250mg tablet PO SCH (08:55)
[2020-03-10] MEDS: lactobacillus rhamnosus 10,000 MMU CELLS/CAPSULE PO SCH ×2 (08:55→20:44)
[2020-03-10] MEDS: amLODIPine 5mg tablet PO SCH (08:56)
[2020-03-10] MEDS: thiamine 100mg tablet PO SCH (08:56)
[2020-03-10] MEDS: enoxaparin 40mg/0.4ml syringe SUBCUT SCH (08:57)
[2020-03-10] MEDS: lisinopril 20mg tablet PO SCH (08:57)
[2020-03-10 10:00] VITALS: BP 99/62
--- NOTE | 2020-03-10 15:27 | NUR ---
Reassessment: Pt PO 90-100% avg meals meeting needs. LBM 03/09. No nutrition concerns at this time. Will continue to monitor. Rec: 1. continue regular diet; chopped meats; double eggs WB/double meats BIDLD 2. routine bowel care 3. thiamin, folic, MVI for etoh hx 4. scaled wt this admit Addendum: 03/10/20 at [address] Amended: Links added.
[2020-03-10 18:00] VITALS: BP 110/77
[2020-03-10 18:10] VITALS: BP 110/77
--- NOTE | 2020-03-10 18:21 | NUR ---
Problems reprioritized. Patient report given, questions answered & plan of care reviewed with Chyna.
[2020-03-10] MEDS ORDERED: MULT-1085 PO (18:33)
[2020-03-10] MEDS ORDERED: NOR5T PO (18:33)
[2020-03-10] MEDS ORDERED: LISI-600 PO (18:33)
[2020-03-10] MEDS ORDERED: FOLI0.4T2 PO (18:33)
[2020-03-10] MEDS ORDERED: KEP500T PO (18:33)
[2020-03-10] MEDS ORDERED: THIA50TA10 PO (18:33)
[2020-03-10] MEDS ORDERED: AMOX500C2 PO (18:34)
[2020-03-10 22:00] VITALS: BP 116/71
[2020-03-11 06:00] VITALS: BP 116/76
--- NOTE | 2020-03-11 06:10 | NUR ---
REPORT GIVEN TO NIA LYONS.
[2020-03-11] MEDS: K and/or MAG REPLACEMENT MC SCH ×2 (08:00)
[2020-03-11] MEDS: gabapentin 300mg capsule PO SCH (08:09)
[2020-03-11] MEDS: levetiracetam 250mg tablet PO SCH (08:09)
[2020-03-11] MEDS: lactobacillus rhamnosus 10,000 MMU CELLS/CAPSULE PO SCH (08:09)
[2020-03-11] MEDS: amoxicillin 250mg capsule PO SCH (08:10)
[2020-03-11] MEDS: thiamine 100mg tablet PO SCH (08:10)
[2020-03-11] MEDS: amLODIPine 5mg tablet PO SCH (08:10)
[2020-03-11] MEDS: lisinopril 20mg tablet PO SCH (08:11)
[2020-03-11] MEDS: enoxaparin 40mg/0.4ml syringe SUBCUT SCH (08:12)
[2020-03-11 10:00] VITALS: BP 98/59
--- NOTE | 2020-03-11 11:40 | NUR ---
Student documentation: I have reviewed and agree with all interventions, assessments performed and documented by Talha NATH.
[2020-03-12] MEDS ORDERED: NAPR-56 PO (16:06)
== END 2020-03-11 11:05 | disposition home or self-care (01) | DRG 52 ==
LOC: ER 01:08 → ED HOLD 04:57 → ORTHO 4S 07:03
PROVIDERS: ADMIT Internal Medicine; ATTEND Internal Medicine
DX: G93.41 Metabolic encephalopathy (principal); F10.29 Alcohol dependence with unspecified alcohol-induced disorder; F10.231 Alcohol dependence with withdrawal delirium; E87.1 Hypo-osmolality and hyponatremia; G40.909 Epilepsy, unspecified, not intractable, without status epilepticus; L03.119 Cellulitis of unspecified part of limb; D63.8 Anemia in other chronic diseases classified elsewhere; Z59.0 Homelessness; L27.0 Generalized skin eruption due to drugs and medicaments taken internally; T36.8X5A Adverse effect of other systemic antibiotics, initial encounter; Y92.230 Patient room in hospital as the place of occurrence of the external cause
CPT/HCPCS: 36415; 70450; 70551; 73130; 80048; 80053; 80305; 80320; 82948; 83735; 84132; 85007; 85025; 87070; 87075; 87077; 87081; 87186; 97110; 97116; 97161; 97530; 97535; 99285; G0378; J0290; J1650; J2060; J2543; J7030

== ENCOUNTER 2020-03-12 14:28 | Emergency (ER) | payer MEDICAID ==
[~2020-03-12] VITALS: Ht 177.8 cm; Wt 77.3 kg
[~2020-03-12 14:28] MED LIST changes: +AMOX500C2 PO; +FOLI0.4T2 PO; +KEP500T PO; +LISI-600 PO; +MULT-1085 PO; +NOR5T PO; -SULF1TAB49 PO; +THIA50TA10 PO
[2020-03-12 14:33] VITALS: BP 124/73
[2020-03-12] MEDS ORDERED: NAPR-56 PO (16:06)
== END 2020-03-12 16:28 | disposition home or self-care (01) ==
LOC: ER 14:29
DX: M25.561 Pain in right knee (principal); Z86.69 Personal history of other diseases of the nervous system and sense organs; Z72.89 Other problems related to lifestyle; Z98.890 Other specified postprocedural states; Z88.1 Allergy status to other antibiotic agents; Z79.899 Other long term (current) drug therapy
CPT/HCPCS: 73564; 99284

== ENCOUNTER 2020-03-14 16:09 | Emergency (ER) | payer MEDICAID ==
[~2020-03-14] VITALS: Ht 177.8 cm; Wt 77.0 kg
[~2020-03-14 16:09] MED LIST changes: +NAPR-56 PO
[2020-03-14 16:23] VITALS: BP 122/72
[2020-03-14] MEDS ORDERED: TETanus/Pertussis (Acell)/Diphther VAC/PF (Tdap-Adult) 0.5ml syringe IMVAC ONE (19:10)
== END 2020-03-14 19:44 | disposition home or self-care (01) ==
LOC: ER 16:09
DX: L03.115 Cellulitis of right lower limb (principal); Z86.69 Personal history of other diseases of the nervous system and sense organs; Z72.89 Other problems related to lifestyle; Z98.890 Other specified postprocedural states; Z88.1 Allergy status to other antibiotic agents; Z79.2 Long term (current) use of antibiotics; Z79.899 Other long term (current) drug therapy
CPT/HCPCS: 90471; 90715; 99283

== ENCOUNTER 2020-04-23 07:55 | Emergency (ER) | payer MEDICAID ==
[~2020-04-23] VITALS: Ht 177.8 cm; Wt 73.7 kg
[~2020-04-23 07:55] MED LIST changes: -AMOX500C2 PO; -FOLI0.4T2 PO; -NAPR-56 PO
[2020-04-23 08:00] VITALS: BP 149/88
== END 2020-04-23 08:43 | disposition home or self-care (01) ==
LOC: ER 07:56
DX: Z02.89 Encounter for other administrative examinations (principal); Z86.69 Personal history of other diseases of the nervous system and sense organs; Z72.89 Other problems related to lifestyle; Z98.890 Other specified postprocedural states; Z88.1 Allergy status to other antibiotic agents; Z79.899 Other long term (current) drug therapy; Y90.9 Presence of alcohol in blood, level not specified
CPT/HCPCS: 99281

== ENCOUNTER → 2020-11-12 | Day surgery (SDC) | payer MEDICAID ==
[2020-11-05 14:27] LABS: BASOPHILS % (AUTO) 0.4 % (0-1); EOSINOPHILS # (AUTO) 0.1 X10'3 (0-0.9); EOSINOPHILS % (AUTO) 1.1 % (0-6); LYMPHOCYTES # (AUTO) 1.8 X10'3 (1.1-4.8); LYMPHOCYTES % (AUTO) 34.6 % (21-51); MEAN CORPUSCULAR HEMOGLOBIN 31.1 PG (27.0-31.0); MEAN CORPUSCULAR HGB CONC 34.1 g/dL (33.0-36.5); MEAN CORPUSCULAR VOLUME 91.1 FL (78-98); MEAN PLATELET VOLUME 6.7 FL (7.4-10.4); MONOCYTES # (AUTO) 0.5 X10'3 (0-0.9); MONOCYTES % (AUTO) 10.6 % (2-12); NEUTROPHILS # (AUTO) 2.7 X10'3 (1.8-7.7); NEUTROPHILS % (AUTO) 53.3 % (42-75); PRE OP HEMOGLOBIN 13.6 g/dL (14.0-17.9); PRE OP PLATELET COUNT 235 X10'3 (140-440); RED BLOOD COUNT 4.39 X10'6 (4.70-6.10); RED CELL DISTRIBUTION WIDTH 14.9 % (11.5-14.5)
[2020-11-05 14:41] LABS: ALBUMIN 3.9 G/DL (3.4-5.0); ALKALINE PHOSPHATASE 56 IU/L (46-116); BLOOD UREA NITROGEN 6 MG/DL (7-18); BUN/CREATININE RATIO 7.6 (5.4-32.0); CALCIUM 8.5 MG/DL (8.5-10.1); CHLORIDE 96 MMOL/L (99-107); CREATININE 0.79 MG/DL (0.60-1.10); PRE OP ALT 22 U/L (30-65); PRE OP ANION GAP 8 (8-16); PRE OP AST 38 U/L (10-37); PRE OP BILIRUB, TOTAL 0.5 MG/DL (0.0-1.0); PRE OP GLUCOSE 95 MG/DL (70-104); PRE OP POTASSIUM 4.3 MMOL/L (3.4-5.1); PRE OP SODIUM 133 MMOL/L (135-145); TOTAL CARBON DIOXIDE 29.2 MMOL/L (24-32); TOTAL PROTEIN 7.8 G/DL (6.4-8.2); eGFR > 90 ML/MIN
[~2020-11-12] VITALS: Ht 167.6 cm; Wt 77.1 kg
[2020-11-12] VITALS (14 sets, daily range): BP systolic 118–159; BP diastolic 74–95
[~2020-11-12] MED LIST changes: +BUPIVAcaine/PF 2.5 mg/ml (0.25%) 30ml vial ONE; +HYDR-3964 PO; -KEP500T PO; +LIDOcaine 2% (20mg/ml) 5ml vial ONE; -LISI-600 PO; -MULT-1085 PO; +NO HOME MEDS; -NOR5T PO; -THIA50TA10 PO; +acetaminophen 1,000mg/100ml IV 100 ML IV PRN; +cefazolin/dext.iso 2gm/100ml IV ONE; +dexamethasone sod phosphate 4mg/ml inj. ONE; +famotidine 20mg tablet PO ONE; +fentaNYL/PF 50MCG/1 ML 2ML syringe ONE; +meperidine/PF 25mg/ml syringe IV PRN; +midazolam 1 mg/ML 2ml injection ONE; +morphine 2 MG/ML inj. syringe IV PRN; +morphine 4 MG/ML inj SYRINge IV PRN; +ondansetron/PF 4mg/2ml inj IV PRN; +ondansetron/PF 4mg/2ml inj ONE; +proCHLORperazine 10 MG/2 ml inj IV PRN; +propofol inj 20 ML IV ONE; +ringers solution, lacted 1,000 ML IV SCH; +sevoflurane 250ml liquid IH ONE; +triamcinolone acetonide 40mg/ml inj ONE; +vancomycin 1,500 MG in NS 300ml IV soln IV ONE
--- NOTE | 2020-11-12 12:15 | NUR ---
Received from OR via , accompanied by Anesthesiologist DR CALDERON and report given by Anesthesiolgist. PT PRESENTS WITH 18G RIGHT HAND LR RUNNING 100 MLS/HR. LEFT KNEE ARTHROSCOPY PARTIAL MEDIAL LATERAL MENISCOPY. VSS. Addendum: 11/12/20 at 1227 by Bee Curtis RN, RN Amended: Links added.
== END | disposition home or self-care (01) ==
LOC: PRE-OP 09:32
PROVIDERS: ATTEND Orthopaedic Surgery
DX: S83.232A Complex tear of medial meniscus, current injury, left knee, initial encounter (principal); S83.272A Complex tear of lateral meniscus, current injury, left knee, initial encounter; M17.12 Unilateral primary osteoarthritis, left knee; M22.42 Chondromalacia patellae, left knee; I10 Essential (primary) hypertension; E66.8 Other obesity; Z68.26 Body mass index [BMI] 26.0-26.9, adult; X58.XXXA Exposure to other specified factors, initial encounter; Y93.89 Activity, other specified; Y92.89 Other specified places as the place of occurrence of the external cause; Y99.8 Other external cause status; Z98.890 Other specified postprocedural states; Z79.899 Other long term (current) drug therapy; Z88.1 Allergy status to other antibiotic agents; Z72.89 Other problems related to lifestyle
CPT/HCPCS: 29873; 29879; 29880; 36415; 80053; 85025; 93005; J1100; J2001; J2250; J2405; J2704; J3010; J3301; J3370; J3490; J7040; U0003; U0005; A4215; A4618; A6250; A6449; A7000; J7120

== ENCOUNTER 2020-11-18 08:44 | Emergency (ER) | payer MEDICAID ==
[~2020-11-18] VITALS: Ht 177.8 cm; Wt 77.3 kg
[~2020-11-18 08:44] MED LIST changes: -BUPIVAcaine/PF 2.5 mg/ml (0.25%) 30ml vial ONE; -HYDR-3964 PO; -LIDOcaine 2% (20mg/ml) 5ml vial ONE; -acetaminophen 1,000mg/100ml IV 100 ML IV PRN; -cefazolin/dext.iso 2gm/100ml IV ONE; -dexamethasone sod phosphate 4mg/ml inj. ONE; -famotidine 20mg tablet PO ONE; -fentaNYL/PF 50MCG/1 ML 2ML syringe ONE; -meperidine/PF 25mg/ml syringe IV PRN; -midazolam 1 mg/ML 2ml injection ONE; -morphine 2 MG/ML inj. syringe IV PRN; -morphine 4 MG/ML inj SYRINge IV PRN; -ondansetron/PF 4mg/2ml inj IV PRN; -ondansetron/PF 4mg/2ml inj ONE; -proCHLORperazine 10 MG/2 ml inj IV PRN; -propofol inj 20 ML IV ONE; -ringers solution, lacted 1,000 ML IV SCH; -sevoflurane 250ml liquid IH ONE; -triamcinolone acetonide 40mg/ml inj ONE; -vancomycin 1,500 MG in NS 300ml IV soln IV ONE
--- NOTE | 2020-11-18 09:30 | NUR ---
HALIMA MONROY AT BEDSIDE EVALUATING THE PT.
[2020-11-18] MEDS ORDERED: ketorolac tromethamine 15mg/ml inj. IM ONE (10:10)
[2020-11-18 11:10] VITALS: BP 157/92
[2020-11-19] MEDS ORDERED: HYDR-3964 PO (14:52)
== END 2020-11-18 11:13 | disposition home or self-care (01) ==
LOC: ER 08:44
DX: M96.89 Other intraoperative and postprocedural complications and disorders of the musculoskeletal system (principal); M25.562 Pain in left knee; Z86.69 Personal history of other diseases of the nervous system and sense organs; Z72.89 Other problems related to lifestyle; Z98.890 Other specified postprocedural states; Z88.1 Allergy status to other antibiotic agents; Z79.899 Other long term (current) drug therapy
CPT/HCPCS: 96372; 99283; J1885

== ENCOUNTER 2020-11-19 10:09 | Inpatient (IN) | payer MEDICAID ==
[~2020-11-19] VITALS: Ht 177.8 cm; Wt 77.3 kg
[2020-11-19] VITALS (13 sets, daily range): BP systolic 108–148; BP diastolic 73–107
[2020-11-19] MEDS ORDERED: LIDOcaine 1% W/epiNEPHrine 1:200,000 10ml vial IJ ONE (10:25)
[2020-11-19] MEDS ORDERED: ketorolac tromethamine 15mg/ml inj. IM ONE (10:35)
--- NOTE | 2020-11-19 12:14 | NUR ---
30CC ASPIRATE FROM LEFT KNEE.
[2020-11-19 13:03] LABS: GLUCOSE,BODY FLUID 26 MG/DL
[2020-11-19 13:29] LABS: APPEARANCE,SYNOVIAL FLUID BLOODY; COLOR,SYNOVIAL FLUID OTHER
[2020-11-19 13:30] LABS: SYN RBC 22275 /CU MM (0); SYN WBC 46475 /CU MM (0-200)
[2020-11-19] MEDS ORDERED: CefTRIAXone 2gm/D5W 50ml BAG 50 ML IV ONE (13:35)
[2020-11-19] MEDS ORDERED: vancomycin/NS 1 GM ADD-VANTAGE 250 ML IV ONE (13:35)
[2020-11-19 13:54] LABS: LYMPHOCYTES,SYNOVIAL FLUID 4 % (0-75); MONOCYTES,SYNOVIAL FLUID 3 % (0-0); NEUTROPHILS,SYNOVIAL FLUID 93 % (0-25)
[2020-11-19 13:58] LABS: BASOPHILS % (AUTO) 0.2 % (0-1); EOSINOPHILS % (AUTO) 0 % (0-6); HEMATOCRIT 40.4 % (42.0-52.0); HEMOGLOBIN 13.7 g/dl (14.0-17.9); LYMPHOCYTES # (AUTO) 0.6 X10'3 (1.1-4.8); MEAN CORPUSCULAR HEMOGLOBIN 31.9 PG (27.0-31.0); MEAN CORPUSCULAR HGB CONC 33.9 g/dL (33.0-36.5); MEAN CORPUSCULAR VOLUME 94.1 FL (78-98); MEAN PLATELET VOLUME 6.7 FL (7.4-10.4); MONOCYTES # (AUTO) 1.4 X10'3 (0-0.9); MONOCYTES % (AUTO) 11.5 % (2-12); NEUTROPHILS # (AUTO) 9.9 X10'3 (1.8-7.7); NEUTROPHILS % (AUTO) 83.3 % (42-75); PLATELET COUNT 153 X10'3 (140-440); RED CELL DISTRIBUTION WIDTH 15.3 % (11.5-14.5); WHITE BLOOD COUNT 11.9 X10'3 (4.5-11.0)
[2020-11-19 14:23] LABS: ALANINE AMINOTRANSFERASE 18 U/L (12-78); ALBUMIN 3.4 G/DL (3.4-5.0); ALBUMIN/GLOBULIN RATIO 0.7 (1.1-1.5); ALKALINE PHOSPHATASE 53 IU/L (46-116); ANION GAP 13 (8-16); ASPARTATE AMINO TRANSFERASE 12 U/L (10-37); BLOOD UREA NITROGEN 9 MG/DL (7-18); BUN/CREATININE RATIO 11.7 (5.4-32.0); CALCIUM 9.1 MG/DL (8.5-10.1); CHLORIDE 95 MMOL/L (99-107); CREATININE 0.77 MG/DL (0.60-1.10); GLUCOSE 103 MG/DL (70-104); POTASSIUM 4.3 MMOL/L (3.5-5.1); SODIUM 130 MMOL/L (135-145); TOTAL CARBON DIOXIDE 22.2 MMOL/L (24-32); TOTAL PROTEIN 8.1 G/DL (6.4-8.2); eGFR > 90 ML/MIN
[2020-11-19] MEDS ORDERED: magnesium Cl slow-release 64mg tablet PO PRN (14:25)
[2020-11-19] MEDS ORDERED: potassium Cl 20 mEq SR tablet PO PRN ×2 (14:25)
[2020-11-19] MEDS ORDERED: potassium Cl 40MEQ/1/2NS 520ml 520 ML IV PRN ×2 (14:25)
[2020-11-19] MEDS ORDERED: ondansetron/PF 4mg/2ml inj IV PRN ×2 (14:25→18:10)
[2020-11-19] MEDS ORDERED: magnesium 2GM in 50ml NS 50 ML IV PRN (14:25)
[2020-11-19] MEDS ORDERED: morphine 2 MG/ML inj. syringe IV PRN ×2 (14:25→18:10)
[2020-11-19] MEDS ORDERED: magnesium 4gm in 100ml NS 100 ML IV PRN (14:25)
[2020-11-19] MEDS ORDERED: acetaminophen 325mg tablet PO PRN ×2 (14:25)
[2020-11-19] MEDS ORDERED: magnesium hydroxide 30ml (MOM) UD suspension PO PRN (14:25)
[2020-11-19] MEDS ORDERED: mag hydrox/Alum hydrox/simeth 30ml oral suspension PO PRN (14:25)
[2020-11-19] MEDS ORDERED: HYDROcodone/acetaminophen 10/325mg tab PO PRN ×2 (14:25→20:05)
[2020-11-19] MEDS ORDERED: HYDR-3964 PO (14:52)
[2020-11-19 15:49] LABS: C-REACTIVE PROTEIN 29.45 MG/DL (0.0-0.5)
[2020-11-19] MEDS: piperacillin/tazo 3.375gm/50ml 50 ML IV SCH ×2 (16:00→23:55)
--- NOTE | 2020-11-19 16:09 | NUR ---
received report from Mahogany Woods RN from ER. Expect pt to 7601 soon
--- NOTE | 2020-11-19 16:39 | NUR ---
received pt to 4008 via [employer]- he was able to scoot over to hospital bed on his own
--- NOTE | 2020-11-19 17:33 | NUR ---
Pt to OR with tech. Spoke to pharmacy, they will deliver the zosyn that is due to the RR per Zamzam (RR) request
[2020-11-19] MEDS ORDERED: morphine 4 MG/ML inj SYRINge IV PRN (18:10)
[2020-11-19] MEDS ORDERED: acetaminophen 1,000mg/100ml IV 100 ML IV PRN (18:10)
[2020-11-19] MEDS ORDERED: proCHLORperazine 10 MG/2 ml inj IV PRN (18:10)
[2020-11-19] MEDS ORDERED: meperidine/PF 25mg/ml syringe IV PRN ×3 (18:10)
[2020-11-19] MEDS ORDERED: ringers solution, lacted 1,000 ML IV SCH (18:10)
[2020-11-19] MEDS ORDERED: labetalol 20mg/4ml (5mg/ml) syringe IV PRN (18:10)
[2020-11-19] MEDS ORDERED: hydrALAZINE 20mg/ml inj. IV PRN (18:10)
[2020-11-19] MEDS ORDERED: fentaNYL/PF 50MCG/1 ML 2ML syringe ONE (18:15)
[2020-11-19] MEDS ORDERED: midazolam 1 mg/ML 2ml injection ONE (18:16)
[2020-11-19] MEDS ORDERED: sevoflurane 250ml liquid IH ONE (18:17)
[2020-11-19] MEDS ORDERED: LIDOcaine 2% (20mg/ml) 5ml vial ONE (18:30)
[2020-11-19] MEDS ORDERED: propofol inj 20 ML IV ONE (18:30)
[2020-11-19] MEDS ORDERED: morphine 10mg/ml inj. ONE ×2 (18:40→19:23)
[2020-11-19] MEDS ORDERED: dexamethasone sod phosphate 4mg/ml inj. ONE (18:40)
[2020-11-19] MEDS ORDERED: ondansetron/PF 4mg/2ml inj ONE (18:41)
[2020-11-19] MEDS ORDERED: BUPIVAcaine/PF 2.5 mg/ml (0.25%) 30ml vial ONE (19:17)
[2020-11-19] MEDS ORDERED: ketorolac trometh. 30mg/ml inj. ONE (19:19)
[2020-11-19] MEDS ORDERED: acetaminophen 1,000mg/100ml IV 100 ML IV ONE (19:19)
--- NOTE | 2020-11-19 19:24 | NUR ---
Patient in room ORTHO 4008. I have received report from Ryanne KRAMER and had the opportunity to ask questions and assume patient care. Pt in OR at this time.
--- NOTE | 2020-11-19 19:34 | NUR ---
Received from OR via ORTHO BED WITH [facility], accompanied by Anesthesiologist KVNG and report given by Anesthesiolgist. PATIENT WITH 20G PIV IN RIGHT UE RUNNING LR AT 100. LEFT KNEE DRESSING BIAS IS CDI. + DP TO LEFT + CAP REFILL. VSS. 10L MASK ON WITH 100 HEMOVAC TO LEFT KNEE WITH SEROSANGUENOUS DRAINAGE PRESNET (WASH) Addendum: 11/19/20 at 1945 by Jesus Manuel Curtis RN, RN Amended: Links added.
[2020-11-19] MEDS: K and/or MAG REPLACEMENT MC SCH (20:00)
--- NOTE | 2020-11-19 20:04 | NUR ---
PATIENT HAS MET ALL CRITERIA FOR TRANSFER TO THE SURGICAL/RAKEL/PCU/ORTHO/ICU FLOOR. VSS. DRESSINGS INTACT. BED LOW, CALL LIGHT PRESENT AND 2 RAILS UP. RN PRESENT TO ACCEPT CARE OF PATIENT AND REPORT HAS BEEN CALLED. ALL QUESTIONS ANSWERED TO ACCEPTING RN. VSS. NIA SMITH PRESENT TO ACCEPT CARE. HEMOVAC SUCTION APPLIED. VSS. DENIES PAIN. CARE TURNED OVER TO NIA SMITH. Addendum: 11/19/20 at 2009 by Jesus Manuel Yao - NIA KRAMER Amended: Links added.
[2020-11-19] MEDS: dextrose 5%-1/2 normal saline 1,000 ML IV SCH (20:53)
[2020-11-20 02:00] VITALS: BP 137/88
[2020-11-20] MEDS: dextrose 5%-1/2 normal saline 1,000 ML IV SCH (03:38)
--- NOTE | 2020-11-20 06:24 | NUR ---
Problems reprioritized. Patient report given, questions answered & plan of care reviewed with Pat RN.
[2020-11-20 06:30] VITALS: BP 129/73
[2020-11-20 07:10] LABS: BASOPHILS % (AUTO) 0.1 % (0-1); EOSINOPHILS % (AUTO) 0 % (0-6); HEMATOCRIT 35.4 % (42.0-52.0); HEMOGLOBIN 12.2 g/dl (14.0-17.9); LYMPHOCYTES # (AUTO) 0.3 X10'3 (1.1-4.8); LYMPHOCYTES % (AUTO) 2.8 % (21-51); MEAN CORPUSCULAR HEMOGLOBIN 32.6 PG (27.0-31.0); MEAN CORPUSCULAR HGB CONC 34.4 g/dL (33.0-36.5); MEAN CORPUSCULAR VOLUME 94.6 FL (78-98); MEAN PLATELET VOLUME 7.6 FL (7.4-10.4); MONOCYTES # (AUTO) 1.5 X10'3 (0-0.9); MONOCYTES % (AUTO) 14.4 % (2-12); NEUTROPHILS # (AUTO) 8.5 X10'3 (1.8-7.7); NEUTROPHILS % (AUTO) 82.7 % (42-75); PLATELET COUNT 170 X10'3 (140-440); RED BLOOD COUNT 3.74 X10'6 (4.70-6.10); RED CELL DISTRIBUTION WIDTH 15.6 % (11.5-14.5); WHITE BLOOD COUNT 10.2 X10'3 (4.5-11.0)
[2020-11-20 07:41] LABS: ALANINE AMINOTRANSFERASE 18 U/L (12-78); ALBUMIN 2.7 G/DL (3.4-5.0); ALBUMIN/GLOBULIN RATIO 0.6 (1.1-1.5); ALKALINE PHOSPHATASE 45 IU/L (46-116); ANION GAP 10 (8-16); ASPARTATE AMINO TRANSFERASE 9 U/L (10-37); BILIRUBIN,TOTAL 0.8 MG/DL (0.1-1.0); BLOOD UREA NITROGEN 18 MG/DL (7-18); BUN/CREATININE RATIO 19.4 (5.4-32.0); CALCIUM 8.5 MG/DL (8.5-10.1); CHLORIDE 94 MMOL/L (99-107); CREATININE 0.93 MG/DL (0.60-1.10); GLUCOSE 135 MG/DL (70-104); MAGNESIUM 2.5 MG/DL (1.5-2.4); POTASSIUM 4.6 MMOL/L (3.5-5.1); SODIUM 128 MMOL/L (135-145); TOTAL CARBON DIOXIDE 24.4 MMOL/L (24-32); TOTAL PROTEIN 7.2 G/DL (6.4-8.2); eGFR 85 ML/MIN
[2020-11-20] MEDS: K and/or MAG REPLACEMENT MC SCH ×2 (08:00→20:00)
[2020-11-20] MEDS: CefTRIAXone/D5W-Rocephin 1gm 50 ML IV SCH (08:43)
[2020-11-20] MEDS: piperacillin/tazo 3.375gm/50ml 50 ML IV SCH ×3 (08:43→23:52)
[2020-11-20] MEDS: enoxaparin 40mg/0.4ml syringe SUBCUT SCH (08:45)
[2020-11-20] MEDS: HYDROcodone/acetaminophen 10/325mg tab PO PRN ×2 (08:47→21:16)
[2020-11-20 11:00] VITALS: BP 156/85
[2020-11-20] MEDS: normal saline 1000ml 1,000 ML IV SCH ×2 (12:55→23:52)
[2020-11-20 14:00] VITALS: BP 127/78
--- NOTE | 2020-11-20 18:20 | NUR ---
Patient in room ORTHO 4008. I have received report from NIA Mccauley and had the opportunity to ask questions and assume patient care.
[2020-11-20] MEDS: lactobacillus rhamnosus 10,000 MMU CELLS/CAPSULE PO SCH (19:34)
[2020-11-20 22:00] VITALS: BP 147/92
[2020-11-21] MEDS: HYDROcodone/acetaminophen 10/325mg tab PO PRN ×4 (04:50→23:24)
[2020-11-21 05:11] VITALS: BP 132/78
--- NOTE | 2020-11-21 06:25 | NUR ---
Problems reprioritized. Patient report given, questions answered & plan of care reviewed with Parisa RN.
[2020-11-21 07:34] LABS: BASOPHILS % (AUTO) 0.1 % (0-1); EOSINOPHILS % (AUTO) 0.1 % (0-6); HEMATOCRIT 33.5 % (42.0-52.0); HEMOGLOBIN 11.5 g/dl (14.0-17.9); LYMPHOCYTES % (AUTO) 12.1 % (21-51); MEAN CORPUSCULAR HEMOGLOBIN 32.5 PG (27.0-31.0); MEAN CORPUSCULAR HGB CONC 34.4 g/dL (33.0-36.5); MEAN CORPUSCULAR VOLUME 94.4 FL (78-98); MEAN PLATELET VOLUME 7.7 FL (7.4-10.4); MONOCYTES # (AUTO) 1.4 X10'3 (0-0.9); MONOCYTES % (AUTO) 17.6 % (2-12); NEUTROPHILS # (AUTO) 5.6 X10'3 (1.8-7.7); NEUTROPHILS % (AUTO) 70.1 % (42-75); PLATELET COUNT 173 X10'3 (140-440); RED BLOOD COUNT 3.55 X10'6 (4.70-6.10); RED CELL DISTRIBUTION WIDTH 15.5 % (11.5-14.5)
[2020-11-21 08:00] LABS: ALANINE AMINOTRANSFERASE 25 U/L (12-78); ALBUMIN 2.5 G/DL (3.4-5.0); ALBUMIN/GLOBULIN RATIO 0.6 (1.1-1.5); ALKALINE PHOSPHATASE 43 IU/L (46-116); ANION GAP 7 (8-16); ASPARTATE AMINO TRANSFERASE 16 U/L (10-37); BILIRUBIN,TOTAL 0.6 MG/DL (0.1-1.0); BLOOD UREA NITROGEN 15 MG/DL (7-18); CALCIUM 8.6 MG/DL (8.5-10.1); CHLORIDE 97 MMOL/L (99-107); CREATININE 0.88 MG/DL (0.60-1.10); GLUCOSE 101 MG/DL (70-104); MAGNESIUM 2.1 MG/DL (1.5-2.4); POTASSIUM 4.1 MMOL/L (3.5-5.1); SODIUM 132 MMOL/L (135-145); TOTAL CARBON DIOXIDE 27.7 MMOL/L (24-32); TOTAL PROTEIN 6.8 G/DL (6.4-8.2); eGFR > 90 ML/MIN
[2020-11-21] MEDS: K and/or MAG REPLACEMENT MC SCH ×2 (08:00→20:00)
[2020-11-21] MEDS: enoxaparin 40mg/0.4ml syringe SUBCUT SCH (09:27)
[2020-11-21] MEDS: normal saline 1000ml 1,000 ML IV SCH ×2 (09:27→19:46)
[2020-11-21] MEDS: lactobacillus rhamnosus 10,000 MMU CELLS/CAPSULE PO SCH ×2 (09:27→19:46)
[2020-11-21] MEDS: CefTRIAXone/D5W-Rocephin 1gm 50 ML IV SCH (09:27)
[2020-11-21] MEDS: piperacillin/tazo 3.375gm/50ml 50 ML IV SCH (09:28)
--- NOTE | 2020-11-21 10:30 | NUR ---
PATIENT LT KNEE SYNOVIAL FLUID TESTED POSITIVE FOR MRSA.NASAL SWAB ALSO TESTED POSITIVE FOR MRSA.PATIENT PLACED IN ISOLATION PRECAUTIONS. DR. KAISER APPRISED , AND ORDERED VANCOMYCIN ORDERED. Addendum: 11/21/20 at 1703 by Charisma Sherman RN Amended: Links added.
[2020-11-21 10:34] VITALS: BP 126/76
[2020-11-21] MEDS: VANCOmycin 1250MG/NS 250ml Bag 250 ML IV SCH ×2 (11:57→23:21)
[2020-11-21 18:00] VITALS: BP 136/100
--- NOTE | 2020-11-21 18:50 | NUR ---
Patient in room ORTHO 4008. I have received report from Parisa RN and had the opportunity to ask questions and assume patient care.
[2020-11-21 22:00] VITALS: BP 160/94
--- NOTE | 2020-11-21 22:24 | NUR ---
CHUY NOT REASSESSED ON EARLY SHIFT FOR THE 0450 DOSE AND THE 1130 DOSE.
[2020-11-22] MEDS: HYDROcodone/acetaminophen 10/325mg tab PO PRN ×4 (05:38→22:50)
[2020-11-22] MEDS: normal saline 1000ml 1,000 ML IV SCH ×3 (05:41→17:47)
[2020-11-22 06:00] VITALS: BP 161/83
--- NOTE | 2020-11-22 06:44 | NUR ---
Patient in room ORTHO 4008. I have received report from NIA Orantes and had the opportunity to ask questions and assume patient care. Addendum: 11/22/20 at 0715 by Shirin Winter RN Report from NIA Shahid not Lamberto.
--- NOTE | 2020-11-22 07:09 | NUR ---
Problems reprioritized. Patient report given, questions answered & plan of care reviewed with OSCAR Nettles RN.
[2020-11-22 07:13] LABS: BASOPHILS % (AUTO) 0.2 % (0-1); EOSINOPHILS % (AUTO) 0.2 % (0-6); HEMATOCRIT 34.1 % (42.0-52.0); HEMOGLOBIN 11.6 g/dl (14.0-17.9); LYMPHOCYTES # (AUTO) 0.8 X10'3 (1.1-4.8); LYMPHOCYTES % (AUTO) 13.4 % (21-51); MEAN CORPUSCULAR HEMOGLOBIN 32.2 PG (27.0-31.0); MEAN CORPUSCULAR HGB CONC 34.1 g/dL (33.0-36.5); MEAN CORPUSCULAR VOLUME 94.6 FL (78-98); MEAN PLATELET VOLUME 6.8 FL (7.4-10.4); MONOCYTES # (AUTO) 1.1 X10'3 (0-0.9); MONOCYTES % (AUTO) 18.9 % (2-12); NEUTROPHILS % (AUTO) 67.3 % (42-75); PLATELET COUNT 216 X10'3 (140-440); RED BLOOD COUNT 3.61 X10'6 (4.70-6.10); RED CELL DISTRIBUTION WIDTH 15.4 % (11.5-14.5); WHITE BLOOD COUNT 5.9 X10'3 (4.5-11.0)
[2020-11-22 07:30] LABS: ALANINE AMINOTRANSFERASE 31 U/L (12-78); ALBUMIN 2.7 G/DL (3.4-5.0); ALBUMIN/GLOBULIN RATIO 0.6 (1.1-1.5); ALKALINE PHOSPHATASE 42 IU/L (46-116); ANION GAP 8 (8-16); ASPARTATE AMINO TRANSFERASE 18 U/L (10-37); BILIRUBIN,TOTAL 0.7 MG/DL (0.1-1.0); BLOOD UREA NITROGEN 9 MG/DL (7-18); BUN/CREATININE RATIO 11.8 (5.4-32.0); CALCIUM 8.7 MG/DL (8.5-10.1); CHLORIDE 96 MMOL/L (99-107); CREATININE 0.76 MG/DL (0.60-1.10); GLUCOSE 105 MG/DL (70-104); MAGNESIUM 1.8 MG/DL (1.5-2.4); POTASSIUM 3.8 MMOL/L (3.5-5.1); SODIUM 133 MMOL/L (135-145); TOTAL CARBON DIOXIDE 28.8 MMOL/L (24-32); TOTAL PROTEIN 7.1 G/DL (6.4-8.2); eGFR > 90 ML/MIN
[2020-11-22] MEDS: lactobacillus rhamnosus 10,000 MMU CELLS/CAPSULE PO SCH ×2 (07:30→19:55)
[2020-11-22] MEDS: enoxaparin 40mg/0.4ml syringe SUBCUT SCH (07:30)
[2020-11-22] MEDS: CefTRIAXone/D5W-Rocephin 1gm 50 ML IV SCH (07:30)
[2020-11-22] MEDS: K and/or MAG REPLACEMENT MC SCH ×2 (08:00→20:00)
[2020-11-22 08:02] LABS: TOTAL CELLS COUNTED 100
[2020-11-22 08:03] LABS: PLATELET ESTIMATE NORMAL; POLYCHROMASIA 1+; ROULEAUX 1+
--- NOTE | 2020-11-22 11:25 | NUR ---
Paged Dr Lim through his service as pt hemovac drain has been pulled apart by Pt activity. Drain had no output prior to coming apart. Awaiting Call back.
[2020-11-22] MEDS: VANCOmycin 1250MG/NS 250ml Bag 250 ML IV SCH ×2 (11:43→22:50)
--- NOTE | 2020-11-22 14:18 | NUR ---
Did not hear back from Dr Carina locke a second time through service. Drain tubing remains present in knee without hemovac connection no drainage noted. Will continue to attemt to reach MD for orders.
--- NOTE | 2020-11-22 15:38 | NUR ---
Dr Ronquillo called back for Dr Lim. explained condition of hemovac drain. Order received to Dc remaining drain tubing.
[2020-11-22 18:00] VITALS: BP 157/89
--- NOTE | 2020-11-22 18:10 | NUR ---
Patient in room ORTHO 4008. I have received report from NIA Mckeon and had the opportunity to ask questions and assume patient care.
--- NOTE | 2020-11-22 18:20 | NUR ---
Patient in room ORTHO 4008. I have received report from Shirin-NIA, and had the opportunity to ask questions and assume patient care.
[2020-11-22] MEDS: morphine 2 MG/ML inj. syringe IV PRN (19:56)
[2020-11-22 22:00] VITALS: BP 177/90
[2020-11-22] MEDS ORDERED: VANCOMYCIN LEVEL IV ONE (22:30)
[2020-11-23] MEDS: morphine 2 MG/ML inj. syringe IV PRN (01:59)
[2020-11-23] MEDS: HYDROcodone/acetaminophen 10/325mg tab PO PRN ×4 (03:59→21:25)
--- NOTE | 2020-11-23 04:15 | NUR ---
Patient complains that he is not getting his pain medication despite explaining that his pain medication is as needed, not scheduled but still insist to get his medication earlier/on time to prevent sever knee pain.
--- NOTE | 2020-11-23 06:15 | NUR ---
received report from opal blair
--- NOTE | 2020-11-23 06:18 | NUR ---
Problems reprioritized. Patient report given, questions answered & plan of care reviewed with Arsh.
[2020-11-23 07:00] VITALS: BP 157/95
[2020-11-23] MEDS: K and/or MAG REPLACEMENT MC SCH ×2 (08:00→19:24)
[2020-11-23 08:24] LABS: BASOPHILS % (AUTO) 0.2 % (0-1); EOSINOPHILS % (AUTO) 0.4 % (0-6); HEMATOCRIT 35.5 % (42.0-52.0); HEMOGLOBIN 11.9 g/dl (14.0-17.9); LYMPHOCYTES % (AUTO) 14.9 % (21-51); MEAN CORPUSCULAR HEMOGLOBIN 31.5 PG (27.0-31.0); MEAN CORPUSCULAR HGB CONC 33.5 g/dL (33.0-36.5); MEAN PLATELET VOLUME 6.9 FL (7.4-10.4); MONOCYTES # (AUTO) 1.3 X10'3 (0-0.9); MONOCYTES % (AUTO) 19.2 % (2-12); NEUTROPHILS # (AUTO) 4.5 X10'3 (1.8-7.7); NEUTROPHILS % (AUTO) 65.3 % (42-75); PLATELET COUNT 263 X10'3 (140-440); RED BLOOD COUNT 3.78 X10'6 (4.70-6.10); RED CELL DISTRIBUTION WIDTH 15.5 % (11.5-14.5); WHITE BLOOD COUNT 6.9 X10'3 (4.5-11.0)
[2020-11-23] MEDS: lactobacillus rhamnosus 10,000 MMU CELLS/CAPSULE PO SCH ×2 (08:26→19:19)
[2020-11-23] MEDS: normal saline 1000ml 1,000 ML IV SCH ×2 (08:28→20:55)
[2020-11-23] MEDS: enoxaparin 40mg/0.4ml syringe SUBCUT SCH (08:28)
[2020-11-23 08:55] LABS: ALANINE AMINOTRANSFERASE 12 U/L (12-78); ALBUMIN 2.6 G/DL (3.4-5.0); ALBUMIN/GLOBULIN RATIO 0.5 (1.1-1.5); ASPARTATE AMINO TRANSFERASE 16 U/L (10-37); BILIRUBIN,TOTAL 0.6 MG/DL (0.1-1.0); BLOOD UREA NITROGEN 8 MG/DL (7-18); BUN/CREATININE RATIO 10.5 (5.4-32.0); CHLORIDE 97 MMOL/L (99-107); CREATININE 0.76 MG/DL (0.60-1.10); GLUCOSE 117 MG/DL (70-104); MAGNESIUM 2.1 MG/DL (1.5-2.4); POTASSIUM 3.7 MMOL/L (3.5-5.1); TOTAL CARBON DIOXIDE 28.8 MMOL/L (24-32); TOTAL PROTEIN 7.5 G/DL (6.4-8.2); eGFR > 90 ML/MIN
[2020-11-23 08:56] LABS: ALKALINE PHOSPHATASE 44 IU/L (46-116); ANION GAP 7 (8-16); SODIUM 133 MMOL/L (135-145)
--- NOTE | 2020-11-23 09:15 | NUR ---
computer scanner not scanning meds into [employer], also pa okayed admin po pain meds slightly early for physical therapy, continue to monitor
[2020-11-23 10:00] VITALS: BP 130/58
[2020-11-23] MEDS: VANCOmycin 1250MG/NS 250ml Bag 250 ML IV SCH (10:28)
[2020-11-23 18:00] VITALS: BP 127/58
[2020-11-23 18:01] VITALS: BP 162/86
--- NOTE | 2020-11-23 18:13 | NUR ---
GAVE REPORT TO NIA BROCK
--- NOTE | 2020-11-23 19:36 | NUR ---
noted pt's leg swollen from ankle to mid-thigh. pt states it has been getting worse. unable to compare to prior as I have not seen it previously. will note to MD in am. no reddness or red lines to demark. non pitting edema. leg is elevated on 2 pillows and ice pack applied to top of knee per pt comfort.
[2020-11-23] MEDS: VANCOMYCIN 1,500MG inj. 1,500 MG in normal saline 500ml IV soln 300 ML IV SCH (21:24)
[2020-11-23 22:00] VITALS: BP 106/53
[2020-11-23 22:01] VITALS: BP 178/88
[2020-11-24] MEDS: normal saline 1000ml 1,000 ML IV SCH ×2 (03:49→16:55)
[2020-11-24] MEDS: HYDROcodone/acetaminophen 10/325mg tab PO PRN ×4 (03:55→22:08)
--- NOTE | 2020-11-24 04:22 | NUR ---
pt wants IVF d/c. will ask md in am.
[2020-11-24 06:00] VITALS: BP 151/82
--- NOTE | 2020-11-24 06:10 | NUR ---
received report from opal fernandez
--- NOTE | 2020-11-24 06:27 | NUR ---
reported to days. noted pt requests norco when available. anticipate discharge today
[2020-11-24 07:07] LABS: BASOPHILS % (AUTO) 0.3 % (0-1); EOSINOPHILS % (AUTO) 0.4 % (0-6); HEMATOCRIT 32.7 % (42.0-52.0); HEMOGLOBIN 11.2 g/dl (14.0-17.9); LYMPHOCYTES # (AUTO) 0.8 X10'3 (1.1-4.8); LYMPHOCYTES % (AUTO) 10.1 % (21-51); MEAN CORPUSCULAR HGB CONC 34.3 g/dL (33.0-36.5); MEAN CORPUSCULAR VOLUME 93.3 FL (78-98); MEAN PLATELET VOLUME 6.9 FL (7.4-10.4); MONOCYTES # (AUTO) 1.6 X10'3 (0-0.9); MONOCYTES % (AUTO) 18.8 % (2-12); NEUTROPHILS # (AUTO) 5.8 X10'3 (1.8-7.7); NEUTROPHILS % (AUTO) 70.4 % (42-75); PLATELET COUNT 313 X10'3 (140-440); RED CELL DISTRIBUTION WIDTH 15.3 % (11.5-14.5); WHITE BLOOD COUNT 8.3 X10'3 (4.5-11.0)
[2020-11-24 07:31] LABS: ALANINE AMINOTRANSFERASE 27 U/L (12-78); ALBUMIN 2.5 G/DL (3.4-5.0); ALBUMIN/GLOBULIN RATIO 0.6 (1.1-1.5); ALKALINE PHOSPHATASE 41 IU/L (46-116); ANION GAP 6 (8-16); ASPARTATE AMINO TRANSFERASE 15 U/L (10-37); BILIRUBIN,TOTAL 0.6 MG/DL (0.1-1.0); BLOOD UREA NITROGEN 9 MG/DL (7-18); BUN/CREATININE RATIO 11.3 (5.4-32.0); CALCIUM 9.2 MG/DL (8.5-10.1); CHLORIDE 97 MMOL/L (99-107); GLUCOSE 112 MG/DL (70-104); MAGNESIUM 2.1 MG/DL (1.5-2.4); POTASSIUM 4.1 MMOL/L (3.5-5.1); SODIUM 132 MMOL/L (135-145); TOTAL CARBON DIOXIDE 28.8 MMOL/L (24-32); eGFR > 90 ML/MIN
[2020-11-24 07:46] LABS: ANISOCYTOSIS 1+; PLATELET ESTIMATE NORMAL; TOTAL CELLS COUNTED 100
[2020-11-24 07:47] LABS: SPHEROCYTES FEW
[2020-11-24] MEDS: K and/or MAG REPLACEMENT MC SCH ×2 (08:00→20:00)
[2020-11-24] MEDS: lactobacillus rhamnosus 10,000 MMU CELLS/CAPSULE PO SCH ×2 (08:33→22:07)
[2020-11-24] MEDS: VANCOMYCIN 1,500MG inj. 1,500 MG in normal saline 500ml IV soln 300 ML IV SCH ×2 (08:33→19:33)
[2020-11-24] MEDS: enoxaparin 40mg/0.4ml syringe SUBCUT SCH (08:34)
[2020-11-24 10:00] VITALS: BP 160/96
--- NOTE | 2020-11-24 15:38 | NUR ---
Initial: Pt admit DX R knee septic arthritis s/p drainage this admit. PO 75-100% avg regular diet; double meats BIDLD added for satiety and protein needs given DX; dietary notified. LBM 11/22. Noted hx etoh abuse in EMR; MAXIM d/w RN regarding routine thiamin, folic, MVI for etoh hx if MD agreeable. Serum Na 132 up from 128 on admit receiving NS. Will continue to monitor. Rec: 1. continue regular diet; double meats BIDLD 2. thiamin, folic, MVI for etoh hx 3. routine bowel care 4. scaled wt this admit Addendum: 11/24/20 at [address] Amended: Links added.
--- NOTE | 2020-11-24 18:42 | NUR ---
GAVE REPORT TO NIA BROCK
[2020-11-24 19:00] VITALS: BP 165/88
[2020-11-24 22:00] VITALS: BP 163/87
[2020-11-25] MEDS: normal saline 1000ml 1,000 ML IV SCH ×3 (02:55→23:38)
[2020-11-25] MEDS: HYDROcodone/acetaminophen 10/325mg tab PO PRN ×3 (04:29→23:37)
--- NOTE | 2020-11-25 06:00 | NUR ---
reported to days. noted pt needs to have IVF discontinued to increase pt mobility an dindependace.
--- NOTE | 2020-11-25 06:30 | NUR ---
Patient in room ORTHO 4008. I have received report from NIA Oakley and had the opportunity to ask questions and assume patient care.
[2020-11-25 07:00] VITALS: BP 152/95
[2020-11-25] MEDS ORDERED: VANCOMYCIN LEVEL IV ONE (07:30)
[2020-11-25 07:55] LABS: BASOPHILS % (AUTO) 0.3 % (0-1); EOSINOPHILS % (AUTO) 0.5 % (0-6); HEMATOCRIT 35.3 % (42.0-52.0); HEMOGLOBIN 11.8 g/dl (14.0-17.9); LYMPHOCYTES # (AUTO) 0.8 X10'3 (1.1-4.8); LYMPHOCYTES % (AUTO) 9.9 % (21-51); MEAN CORPUSCULAR HEMOGLOBIN 31.5 PG (27.0-31.0); MEAN CORPUSCULAR HGB CONC 33.5 g/dL (33.0-36.5); MEAN PLATELET VOLUME 6.9 FL (7.4-10.4); MONOCYTES # (AUTO) 1.3 X10'3 (0-0.9); MONOCYTES % (AUTO) 15.4 % (2-12); NEUTROPHILS # (AUTO) 6.3 X10'3 (1.8-7.7); NEUTROPHILS % (AUTO) 73.9 % (42-75); PLATELET COUNT 452 X10'3 (140-440); RED BLOOD COUNT 3.75 X10'6 (4.70-6.10); RED CELL DISTRIBUTION WIDTH 15.4 % (11.5-14.5); WHITE BLOOD COUNT 8.5 X10'3 (4.5-11.0)
[2020-11-25 07:56] LABS: MAGNESIUM 2.2 MG/DL (1.5-2.4); VANCOMYCIN,TROUGH 10.8 UG/ML (6.0-14.0)
[2020-11-25] MEDS: K and/or MAG REPLACEMENT MC SCH ×2 (08:00→20:00)
[2020-11-25] MEDS: VANCOMYCIN 1,500MG inj. 1,500 MG in normal saline 500ml IV soln 300 ML IV SCH (08:04)
[2020-11-25] MEDS: lactobacillus rhamnosus 10,000 MMU CELLS/CAPSULE PO SCH ×2 (08:04→23:37)
[2020-11-25] MEDS: enoxaparin 40mg/0.4ml syringe SUBCUT SCH (08:05)
[2020-11-25 10:40] VITALS: BP 154/92
[2020-11-25] MEDS: VANCOmycin 1250MG/NS 250ml Bag 250 ML IV SCH (16:17)
[2020-11-25 18:00] VITALS: BP 184/94
--- NOTE | 2020-11-25 18:36 | NUR ---
Problems reprioritized. Patient report given, questions answered & plan of care reviewed with Yobani Childers.
[2020-11-25 22:00] VITALS: BP 154/92
[2020-11-26] MEDS: VANCOmycin 1250MG/NS 250ml Bag 250 ML IV SCH ×3 (00:48→16:16)
[2020-11-26] MEDS: HYDROcodone/acetaminophen 10/325mg tab PO PRN ×2 (05:04→14:44)
[2020-11-26] MEDS: enoxaparin 40mg/0.4ml syringe SUBCUT SCH (07:12)
[2020-11-26] MEDS: lactobacillus rhamnosus 10,000 MMU CELLS/CAPSULE PO SCH ×2 (07:13→19:03)
[2020-11-26 07:14] LABS: BASOPHILS % (AUTO) 0.2 % (0-1); EOSINOPHILS % (AUTO) 0.6 % (0-6); HEMATOCRIT 31.8 % (42.0-52.0); HEMOGLOBIN 10.9 g/dl (14.0-17.9); LYMPHOCYTES # (AUTO) 0.8 X10'3 (1.1-4.8); LYMPHOCYTES % (AUTO) 11.4 % (21-51); MEAN CORPUSCULAR HEMOGLOBIN 32.4 PG (27.0-31.0); MEAN CORPUSCULAR HGB CONC 34.2 g/dL (33.0-36.5); MEAN CORPUSCULAR VOLUME 94.6 FL (78-98); MEAN PLATELET VOLUME 6.7 FL (7.4-10.4); MONOCYTES # (AUTO) 1.2 X10'3 (0-0.9); MONOCYTES % (AUTO) 17.3 % (2-12); NEUTROPHILS # (AUTO) 4.9 X10'3 (1.8-7.7); NEUTROPHILS % (AUTO) 70.5 % (42-75); PLATELET COUNT 471 X10'3 (140-440); RED BLOOD COUNT 3.36 X10'6 (4.70-6.10); RED CELL DISTRIBUTION WIDTH 15.5 % (11.5-14.5); WHITE BLOOD COUNT 6.9 X10'3 (4.5-11.0)
[2020-11-26 07:37] LABS: MAGNESIUM 2.1 MG/DL (1.5-2.4)
[2020-11-26] MEDS: K and/or MAG REPLACEMENT MC SCH ×2 (08:00→20:00)
[2020-11-26 08:53] LABS: CREATININE 0.78 MG/DL (0.60-1.10); eGFR > 90 ML/MIN
[2020-11-26 08:55] LABS: PLATELET ESTIMATE INCREASED; TOTAL CELLS COUNTED 100
[2020-11-26] MEDS: normal saline 1000ml 1,000 ML IV SCH ×2 (08:55→18:55)
[2020-11-26 09:02] VITALS: BP 146/76
[2020-11-26 10:00] VITALS: BP 150/77
[2020-11-26] MEDS ORDERED: VANCOMYCIN LEVEL IV ONE (15:30)
[2020-11-26 18:00] VITALS: BP 126/87
--- NOTE | 2020-11-26 18:44 | NUR ---
I have received report from NIA Pearl and had the opportunity to ask questions and assume patient care.
[2020-11-26 22:00] VITALS: BP 150/71
[2020-11-26] MEDS: morphine 2 MG/ML inj. syringe IV PRN (22:26)
[2020-11-27] MEDS: VANCOmycin 1250MG/NS 250ml Bag 250 ML IV SCH ×2 (00:19→09:25)
[2020-11-27] MEDS: normal saline 1000ml 1,000 ML IV SCH (03:41)
--- NOTE | 2020-11-27 06:19 | NUR ---
Problems reprioritized. Patient report given, questions answered & plan of care reviewed with NIA Pearl.
[2020-11-27 07:26] LABS: BASOPHILS % (AUTO) 0.3 % (0-1); EOSINOPHILS # (AUTO) 0.1 X10'3 (0-0.9); HEMOGLOBIN 10.9 g/dl (14.0-17.9); LYMPHOCYTES # (AUTO) 0.9 X10'3 (1.1-4.8); LYMPHOCYTES % (AUTO) 14.4 % (21-51); MEAN CORPUSCULAR HEMOGLOBIN 31.5 PG (27.0-31.0); MEAN CORPUSCULAR VOLUME 92.7 FL (78-98); MONOCYTES # (AUTO) 1.1 X10'3 (0-0.9); MONOCYTES % (AUTO) 17.6 % (2-12); NEUTROPHILS # (AUTO) 4.3 X10'3 (1.8-7.7); NEUTROPHILS % (AUTO) 66.7 % (42-75); PLATELET COUNT 583 X10'3 (140-440); RED BLOOD COUNT 3.46 X10'6 (4.70-6.10); RED CELL DISTRIBUTION WIDTH 15.6 % (11.5-14.5); WHITE BLOOD COUNT 6.4 X10'3 (4.5-11.0)
[2020-11-27 07:32] LABS: ALANINE AMINOTRANSFERASE 48 U/L (12-78); ALBUMIN 2.4 G/DL (3.4-5.0); ALBUMIN/GLOBULIN RATIO 0.5 (1.1-1.5); ALKALINE PHOSPHATASE 45 IU/L (46-116); ANION GAP 6 (8-16); ASPARTATE AMINO TRANSFERASE 27 U/L (10-37); BILIRUBIN,TOTAL 0.5 MG/DL (0.1-1.0); BLOOD UREA NITROGEN 10 MG/DL (7-18); BUN/CREATININE RATIO 11.8 (5.4-32.0); CALCIUM 9.1 MG/DL (8.5-10.1); CHLORIDE 99 MMOL/L (99-107); CREATININE 0.85 MG/DL (0.60-1.10); GLUCOSE 106 MG/DL (70-104); POTASSIUM 3.8 MMOL/L (3.5-5.1); SODIUM 134 MMOL/L (135-145); TOTAL CARBON DIOXIDE 28.8 MMOL/L (24-32); TOTAL PROTEIN 7.2 G/DL (6.4-8.2); eGFR > 90 ML/MIN
[2020-11-27] MEDS: K and/or MAG REPLACEMENT MC SCH (08:00)
[2020-11-27] MEDS: lactobacillus rhamnosus 10,000 MMU CELLS/CAPSULE PO SCH (08:16)
[2020-11-27] MEDS: enoxaparin 40mg/0.4ml syringe SUBCUT SCH (08:16)
[2020-11-27] MEDS: morphine 2 MG/ML inj. syringe IV PRN ×2 (08:26→12:31)
[2020-11-27 10:00] VITALS: BP 168/89
[2020-11-27] MEDS: HYDROcodone/acetaminophen 10/325mg tab PO PRN ×2 (10:33→16:09)
[2020-11-28] MEDS ORDERED: VANCOMYCIN LEVEL IV ONE (07:30)
== END 2020-11-27 16:55 | DRG 313 ==
LOC: ER 10:09 → ED HOLD 14:22 → ORTHO 4S 16:30
PROVIDERS: ADMIT Internal Medicine; ATTEND Internal Medicine
PROC: 0S9D3ZZ Drainage of Left Knee Joint, Percutaneous Approach (ICD-10-PCS; 2020-11-19)
PROC: 0SBD4ZZ Excision of Left Knee Joint, Percutaneous Endoscopic Approach (ICD-10-PCS; principal; 2020-11-19 18:17)
PROC: 02HV33Z Insertion of Infusion Device into Superior Vena Cava, Percutaneous Approach (ICD-10-PCS; 2020-11-27)
PROC: B548ZZA Ultrasonography of Superior Vena Cava, Guidance (ICD-10-PCS; 2020-11-27)
DX: M00.062 Staphylococcal arthritis, left knee (principal); E87.1 Hypo-osmolality and hyponatremia; Z20.822 Contact with and (suspected) exposure to COVID-19; I10 Essential (primary) hypertension; F10.20 Alcohol dependence, uncomplicated; B95.62 Methicillin resistant Staphylococcus aureus infection as the cause of diseases classified elsewhere; Z88.1 Allergy status to other antibiotic agents; Z88.8 Allergy status to other drugs, medicaments and biological substances
CPT/HCPCS: 20610; 36415; 36573; 71045; 76937; 80053; 80202; 82565; 82945; 82948; 83605; 83735; 84145; 85007; 85025; 85651; 86140; 87040; 87070; 87075; 87077; 87081; 87186; 87635; 89051; 96365; 96372; 97110; 97116; 97161; 97530; 99285; A4215; A4618; A6250; A6449; A7000; G0378; J0131; J0696; J1100; J1650; J1885; J2001; J2250; J2270; J2405; J2543; J2704; J3010; J3370; J3490; J7030; J7040

== ENCOUNTER 2021-02-02 19:54 | Emergency (ER) | payer MEDICAID ==
[~2021-02-02] VITALS: Ht 177.8 cm; Wt 84.0 kg
[~2021-02-02 19:54] MED LIST changes: +HYDR-3964 PO; -NO HOME MEDS
[2021-02-02 22:57] VITALS: BP 113/85
== END 2021-02-02 23:07 | disposition home or self-care (01) ==
LOC: ER 19:54
DX: F10.129 Alcohol abuse with intoxication, unspecified (principal); R22.42 Localized swelling, mass and lump, left lower limb; Z79.2 Long term (current) use of antibiotics; Z79.899 Other long term (current) drug therapy; Z72.89 Other problems related to lifestyle
CPT/HCPCS: 73564; 99284

== ENCOUNTER 2021-03-21 14:33 | Emergency (ER) | payer MEDICAID ==
[~2021-03-21] VITALS: Ht 177.8 cm; Wt 79.5 kg
[2021-03-21 14:46] VITALS: BP 141/89
[2021-03-21] MEDS ORDERED: DOXY100C76 PO (15:51)
== END 2021-03-21 15:58 | disposition home or self-care (01) ==
LOC: ER 14:34
DX: S61.421A Laceration with foreign body of right hand, initial encounter (principal); G40.909 Epilepsy, unspecified, not intractable, without status epilepticus; Z86.14 Personal history of Methicillin resistant Staphylococcus aureus infection; Z72.89 Other problems related to lifestyle; W26.0XXA Contact with knife, initial encounter; Y93.89 Activity, other specified; Y92.89 Other specified places as the place of occurrence of the external cause; Y99.8 Other external cause status
CPT/HCPCS: 12001; 99283

== ENCOUNTER 2021-04-27 13:38 | Emergency (ER) | payer MEDICAID ==
[~2021-04-27] VITALS: Ht 177.8 cm; Wt 77.3 kg
[2021-04-27] MEDS ORDERED: normal saline 1000ML IV soln IV ONE (17:05)
[2021-04-27] MEDS ORDERED: ondansetron/PF 4mg/2ml inj IV ONE (17:05)
--- NOTE | 2021-04-27 17:07 | NUR ---
PT WITH ETOH WITHDRAWAL: SHAKES, N/V, DIARRHEA, BLURRY VISION,
[2021-04-27] MEDS ORDERED: LORazepam 2 mg/ml vial IV ONE (17:30)
[2021-04-27 18:33] LABS: BASOPHILS % (AUTO) 1.2 % (0-1); EOSINOPHILS % (AUTO) 1.8 % (0-6); HEMATOCRIT 40.1 % (42.0-52.0); HEMOGLOBIN 13.8 g/dl (14.0-17.9); LYMPHOCYTES # (AUTO) 0.7 X10'3 (1.1-4.8); LYMPHOCYTES % (AUTO) 24.5 % (21-51); MEAN CORPUSCULAR HGB CONC 34.3 g/dL (33.0-36.5); MEAN CORPUSCULAR VOLUME 87.6 FL (78-98); MEAN PLATELET VOLUME 6.6 FL (7.4-10.4); MONOCYTES # (AUTO) 0.3 X10'3 (0-0.9); MONOCYTES % (AUTO) 12.8 % (2-12); NEUTROPHILS # (AUTO) 1.6 X10'3 (1.8-7.7); NEUTROPHILS % (AUTO) 59.7 % (42-75); PLATELET COUNT 84 X10'3 (140-440); RED BLOOD COUNT 4.58 X10'6 (4.70-6.10); RED CELL DISTRIBUTION WIDTH 16.3 % (11.5-14.5); WHITE BLOOD COUNT 2.7 X10'3 (4.5-11.0)
[2021-04-27 18:53] LABS: ALANINE AMINOTRANSFERASE 278 U/L (12-78); ALBUMIN 3.9 G/DL (3.4-5.0); ALKALINE PHOSPHATASE 57 IU/L (46-116); ANION GAP 14 (8-16); ASPARTATE AMINO TRANSFERASE 205 U/L (10-37); BILIRUBIN,TOTAL 1.1 MG/DL (0.1-1.0); BLOOD UREA NITROGEN 5 MG/DL (7-18); BUN/CREATININE RATIO 6.8 (5.4-32.0); CALCIUM 8.5 MG/DL (8.5-10.1); CHLORIDE 89 MMOL/L (99-107); CREATININE 0.74 MG/DL (0.60-1.10); GLUCOSE 79 MG/DL (70-104); MAGNESIUM 1.8 MG/DL (1.5-2.4); POTASSIUM 4.4 MMOL/L (3.5-5.1); SODIUM 126 MMOL/L (135-145); TOTAL CARBON DIOXIDE 23.1 MMOL/L (24-32); TOTAL PROTEIN 7.9 G/DL (6.4-8.2); eGFR > 90 ML/MIN
[2021-04-27] MEDS ORDERED: gabapentin 400mg capsule PO STA (19:34)
[2021-04-27] MEDS ORDERED: GABA-534 PO (19:50)
[2021-04-27 20:03] VITALS: BP 130/69
[2021-04-27] MEDS ORDERED: LORazepam 1 MG tablet PO ONE (20:35)
[2021-04-27 20:55] LABS: ANISOCYTOSIS 1+; PLATELET ESTIMATE DECREASED; TOTAL CELLS COUNTED 100
== END 2021-04-27 20:52 | disposition home or self-care (01) ==
LOC: ER 13:38
DX: F10.239 Alcohol dependence with withdrawal, unspecified (principal); R11.2 Nausea with vomiting, unspecified; R19.7 Diarrhea, unspecified; R10.84 Generalized abdominal pain; Z86.69 Personal history of other diseases of the nervous system and sense organs; Z98.890 Other specified postprocedural states; Z72.89 Other problems related to lifestyle; Z79.899 Other long term (current) drug therapy; Y90.9 Presence of alcohol in blood, level not specified
CPT/HCPCS: 36415; 80053; 83735; 85007; 85025; 87040; 96374; 96375; 99284; J2060; J2405; J7030; 99283

== ENCOUNTER 2021-10-01 14:01 | Emergency (ER) | payer MEDICAID ==
[~2021-10-01] VITALS: Ht 172.7 cm; Wt 77.0 kg
[~2021-10-01 14:01] MED LIST changes: +GABA-534 PO
[2021-10-01 14:16] VITALS: BP 119/75
== END 2021-10-01 17:58 | disposition left against medical advice (07) ==
LOC: ER 14:01
DX: F10.129 Alcohol abuse with intoxication, unspecified (principal); Z79.899 Other long term (current) drug therapy; Z72.89 Other problems related to lifestyle; Y90.9 Presence of alcohol in blood, level not specified
CPT/HCPCS: 99283

== ENCOUNTER 2021-10-23 09:52 | Emergency (ER) | payer MEDICAID ==
[~2021-10-23] VITALS: Ht 177.8 cm; Wt 77.0 kg
[2021-10-23 10:45] VITALS: BP 150/92
[2021-10-23] MEDS ORDERED: PROM12.512 PO (10:47)
[2021-10-23] MEDS ORDERED: proMETHazine 25mg tablet PO ONE (10:50)
[2021-10-23] MEDS ORDERED: diazepam 5mg tablet PO ONE (10:50)
== END 2021-10-23 11:11 | disposition home or self-care (01) ==
LOC: ER 09:53
DX: Z02.89 Encounter for other administrative examinations (principal); R11.0 Nausea; Z86.69 Personal history of other diseases of the nervous system and sense organs; Z98.890 Other specified postprocedural states; Z72.89 Other problems related to lifestyle; Z79.899 Other long term (current) drug therapy
CPT/HCPCS: 99283; Q0169

== ENCOUNTER 2021-10-28 08:19 | Emergency (ER) | payer MEDICAID ==
[~2021-10-28] VITALS: Ht 177.8 cm; Wt 85.0 kg
[~2021-10-28 08:19] MED LIST changes: +PROM12.512 PO
[2021-10-28] MEDS ORDERED: acetaminophen 325mg tablet PO ONE (11:35)
[2021-10-28 12:14] VITALS: BP 124/74
== END 2021-10-28 12:16 | disposition home or self-care (01) ==
LOC: ER 08:19
DX: S82.832A Other fracture of upper and lower end of left fibula, initial encounter for closed fracture (principal); X50.9XXA Other and unspecified overexertion or strenuous movements or postures, initial encounter; Y93.89 Activity, other specified; Y92.89 Other specified places as the place of occurrence of the external cause; Y99.8 Other external cause status
CPT/HCPCS: 73610; 99283

== ENCOUNTER 2021-11-06 13:44 | Emergency (ER) | payer MEDICAID ==
[~2021-11-06] VITALS: Ht 177.8 cm; Wt 78.7 kg
[2021-11-06] MEDS ORDERED: normal saline 1000ML IV soln IVB ONE (15:45)
[2021-11-06] MEDS ORDERED: thiamine 100mg/ml 2ml inj. IV ONE (15:45)
[2021-11-06] MEDS ORDERED: LORazepam 2 mg/ml vial IV ONE ×2 (15:45→17:30)
[2021-11-06] MEDS ORDERED: ATI1T PO (17:06)
[2021-11-06 18:44] VITALS: BP 163/96
[2021-11-07] MEDS ORDERED: CHLO25CA10 PO (21:40)
== END 2021-11-06 18:52 | disposition home or self-care (01) ==
LOC: ER 13:44
DX: F10.239 Alcohol dependence with withdrawal, unspecified (principal); Z86.69 Personal history of other diseases of the nervous system and sense organs; Z98.890 Other specified postprocedural states; Z72.89 Other problems related to lifestyle; Z79.899 Other long term (current) drug therapy; Y90.9 Presence of alcohol in blood, level not specified
CPT/HCPCS: 96361; 96374; 96375; 99291; J2060; J3411; J7030

== ENCOUNTER 2021-11-07 21:03 | Emergency (ER) | payer MEDICAID ==
[~2021-11-07] VITALS: Ht 177.8 cm; Wt 77.3 kg
[~2021-11-07 21:03] MED LIST changes: +ATI1T PO
[2021-11-07 21:17] VITALS: BP 135/93
[2021-11-07] MEDS ORDERED: CHLO25CA10 PO (21:40)
== END 2021-11-07 21:59 | disposition home or self-care (01) ==
LOC: ER 21:04
DX: F10.239 Alcohol dependence with withdrawal, unspecified (principal); Z79.899 Other long term (current) drug therapy; Y90.9 Presence of alcohol in blood, level not specified
CPT/HCPCS: 99283

== ENCOUNTER 2021-11-26 15:16 | Emergency (ER) | payer MEDICAID ==
[~2021-11-26] VITALS: Ht 177.8 cm; Wt 79.0 kg
[~2021-11-26 15:16] MED LIST changes: +CHLO25CA10 PO
[2021-11-26 15:30] VITALS: BP 146/112
[2021-11-26] MEDS ORDERED: PRED5DRO23 LEFTEYE (16:17)
== END 2021-11-26 17:39 | disposition home or self-care (01) ==
LOC: ER 15:17
DX: S82.832D Other fracture of upper and lower end of left fibula, subsequent encounter for closed fracture with routine healing (principal); Z72.89 Other problems related to lifestyle; Z98.890 Other specified postprocedural states; Z79.899 Other long term (current) drug therapy; X58.XXXD Exposure to other specified factors, subsequent encounter
CPT/HCPCS: 73564; 73610; 99284

== ENCOUNTER 2022-02-23 15:24 | Emergency (ER) | payer MEDICAID ==
[~2022-02-23] VITALS: Ht 177.8 cm; Wt 77.3 kg
[2022-02-23 15:39] VITALS: BP 132/79
[2022-02-23] MEDS ORDERED: CHLO25CA10 PO (18:46)
--- NOTE | 2022-02-23 19:02 | NUR ---
Patient evaluated by MONKEY TRAINER.
== END 2022-02-23 19:02 | disposition home or self-care (01) ==
LOC: ER 15:24
DX: F10.239 Alcohol dependence with withdrawal, unspecified (principal); Z86.69 Personal history of other diseases of the nervous system and sense organs; Z98.890 Other specified postprocedural states; Z72.89 Other problems related to lifestyle; Z79.899 Other long term (current) drug therapy; Y90.9 Presence of alcohol in blood, level not specified
CPT/HCPCS: 99283

== ENCOUNTER 2022-05-31 14:07 | Emergency (ER) | payer MEDICAID ==
[~2022-05-31] VITALS: Ht 177.8 cm; Wt 77.0 kg
[2022-05-31 14:16] VITALS: BP 154/119
[2022-05-31] MEDS ORDERED: KEP500T PO (20:20)
== END 2022-05-31 20:34 | disposition home or self-care (01) ==
LOC: ER 14:08
DX: R56.9 Unspecified convulsions (principal); Z76.0 Encounter for issue of repeat prescription
CPT/HCPCS: 99281

== ENCOUNTER → 2022-06-16 | Emergency (ER) | payer MEDICAID ==
[~2022-06-16] VITALS: Ht 177.8 cm; Wt 77.3 kg
[~2022-06-16] MED LIST changes: +KEP500T PO; +LORazepam 2 mg/ml vial IV ONE; +levetiracetam inj 1,000 MG in normal saline 100ml IV soln 100 ML IV SCH; +levetiracetam inj 1,000 MG in normal saline 100ml IV soln 90 ML IV SCH; +normal saline 1000ML IV soln IVB ONE
[2022-06-16 14:32] LABS: BASOPHILS % (AUTO) 0.5 % (0-1); EOSINOPHILS % (AUTO) 0.2 % (0-6); HEMATOCRIT 37.1 % (42.0-52.0); HEMOGLOBIN 12.6 g/dl (14.0-17.9); LYMPHOCYTES % (AUTO) 15.7 % (21-51); MEAN CORPUSCULAR HEMOGLOBIN 29.1 PG (27.0-31.0); MEAN CORPUSCULAR VOLUME 85.7 FL (78-98); MEAN PLATELET VOLUME 6.4 FL (7.4-10.4); MONOCYTES # (AUTO) 0.4 X10'3 (0-0.9); MONOCYTES % (AUTO) 6.7 % (2-12); NEUTROPHILS # (AUTO) 4.7 X10'3 (1.8-7.7); NEUTROPHILS % (AUTO) 76.9 % (42-75); PLATELET COUNT 313 X10'3 (140-440); RED BLOOD COUNT 4.33 X10'6 (4.70-6.10); RED CELL DISTRIBUTION WIDTH 15.3 % (11.5-14.5); WHITE BLOOD COUNT 6.1 X10'3 (4.5-11.0)
[2022-06-16 14:52] LABS: ALANINE AMINOTRANSFERASE 13 U/L (12-78); ALBUMIN 3.7 G/DL (3.4-5.0); ALBUMIN/GLOBULIN RATIO 0.9 (1.1-1.5); ALKALINE PHOSPHATASE 67 IU/L (46-116); ANION GAP 8 (8-16); ASPARTATE AMINO TRANSFERASE 25 U/L (10-37); BILIRUBIN,TOTAL 0.3 MG/DL (0.1-1.0); BLOOD UREA NITROGEN 7 MG/DL (7-18); BUN/CREATININE RATIO 8.9 (5.4-32.0); CALCIUM 8.9 MG/DL (8.5-10.1); CHLORIDE 99 MMOL/L (99-107); CREATININE 0.79 MG/DL (0.60-1.10); GLUCOSE 98 MG/DL (70-104); SODIUM 136 MMOL/L (135-145); TOTAL CARBON DIOXIDE 28.9 MMOL/L (24-32); TOTAL PROTEIN 7.7 G/DL (6.4-8.2); eGFR > 90 ML/MIN
[2022-06-16 14:57] LABS: POTASSIUM 4.4 MMOL/L (3.5-5.1)
[2022-06-16 16:07] VITALS: BP 166/89
== END | disposition home or self-care (01) ==
LOC: ER 12:43
DX: G40.909 Epilepsy, unspecified, not intractable, without status epilepticus (principal); Z59.00 Homelessness unspecified
CPT/HCPCS: 36415; 80053; 85025; 96361; 96365; 96375; 99284; J1953; J2060; J3490; J7030

== ENCOUNTER 2022-08-12 10:33 | Emergency (ER) | payer MEDICAID ==
[~2022-08-12] VITALS: Ht 177.8 cm; Wt 77.0 kg
[~2022-08-12 10:33] MED LIST changes: -LORazepam 2 mg/ml vial IV ONE; +MECL-159 PO; +ONDA8TAB13 PO; -levetiracetam inj 1,000 MG in normal saline 100ml IV soln 100 ML IV SCH; -levetiracetam inj 1,000 MG in normal saline 100ml IV soln 90 ML IV SCH; -normal saline 1000ML IV soln IVB ONE
[2022-08-12] MEDS ORDERED: thiamine 100mg/ml 2ml inj. IV ONE (13:00)
[2022-08-12] MEDS ORDERED: ringers solution, lacted 1,000 ML IV ONE (13:00)
[2022-08-12] MEDS ORDERED: ringers solution, lactated 1000ml IV soln IV ONE (13:00)
[2022-08-12 13:18] LABS: BASOPHILS % (AUTO) 0.4 % (0-1); EOSINOPHILS % (AUTO) 0.3 % (0-6); HEMOGLOBIN 12.8 g/dl (14.0-17.9); LYMPHOCYTES # (AUTO) 0.4 X10'3 (1.1-4.8); LYMPHOCYTES % (AUTO) 14.6 % (21-51); MEAN CORPUSCULAR HEMOGLOBIN 29.4 PG (27.0-31.0); MEAN CORPUSCULAR HGB CONC 33.7 g/dL (33.0-36.5); MEAN PLATELET VOLUME 6.1 FL (7.4-10.4); MONOCYTES # (AUTO) 0.3 X10'3 (0-0.9); MONOCYTES % (AUTO) 9.8 % (2-12); NEUTROPHILS # (AUTO) 2.3 X10'3 (1.8-7.7); NEUTROPHILS % (AUTO) 74.9 % (42-75); PLATELET COUNT 137 X10'3 (140-440); RED BLOOD COUNT 4.36 X10'6 (4.70-6.10); RED CELL DISTRIBUTION WIDTH 19.6 % (11.5-14.5); WHITE BLOOD COUNT 3.1 X10'3 (4.5-11.0)
[2022-08-12 13:31] LABS: ALANINE AMINOTRANSFERASE 56 U/L (12-78); ALBUMIN 3.8 G/DL (3.4-5.0); ALBUMIN/GLOBULIN RATIO 0.8 (1.1-1.5); ALKALINE PHOSPHATASE 75 IU/L (46-116); ANION GAP 17 (8-16); ASPARTATE AMINO TRANSFERASE 91 U/L (10-37); BLOOD UREA NITROGEN 9 MG/DL (7-18); BUN/CREATININE RATIO 10.2 (5.4-32.0); CALCIUM 9.6 MG/DL (8.5-10.1); CHLORIDE 92 MMOL/L (99-107); CREATININE 0.88 MG/DL (0.60-1.10); GLUCOSE 117 MG/DL (70-104); SODIUM 129 MMOL/L (135-145); TOTAL CARBON DIOXIDE 20.2 MMOL/L (24-32); TOTAL PROTEIN 8.5 G/DL (6.4-8.2); eGFR 90 ML/MIN
[2022-08-12] MEDS ORDERED: gabapentin 400mg capsule PO STA (14:22)
[2022-08-12] MEDS ORDERED: chlordiazePOXIDE 25mg capsule PO PRN (14:25)
[2022-08-12] MEDS ORDERED: chlordiazePOXIDE 25mg capsule PO ONE (14:30)
[2022-08-12 15:34] VITALS: BP 149/78
[2022-08-12 16:38] LABS: ALBUMIN 3.2 G/DL (3.4-5.0); ANION GAP 10 (8-16); BLOOD UREA NITROGEN 8 MG/DL (7-18); BUN/CREATININE RATIO 12.7 (5.4-32.0); CALCIUM 9.1 MG/DL (8.5-10.1); CHLORIDE 93 MMOL/L (99-107); CREATININE 0.63 MG/DL (0.60-1.10); GLUCOSE 86 MG/DL (70-104); POTASSIUM 4.3 MMOL/L (3.5-5.1); SODIUM 128 MMOL/L (135-145); TOTAL CARBON DIOXIDE 25.4 MMOL/L (24-32); eGFR > 90 ML/MIN
[2022-08-12] MEDS ORDERED: GABA-534 PO (16:54)
--- NOTE | 2022-08-12 17:35 | NUR ---
[facility] CONTACTED TO CONFIRM PLACEMENT AND THAT PT IS WELCOME AT [facility]. [facility] STATES THAT PT IS NOT WELCOME. PT INFORMED THAT PT IS NOT WELCOME AT [facility]. PT STATES THAT HE WOULD LIKE TRANSPORTATION TO ADDRESS, AND HE WILL WALK TO NEARBY LOCATION FOR HALF-WAY.
--- NOTE | 2022-08-12 17:48 | NUR ---
[facility] CONTACTED REGARDING TRANSPORTATION TO [facility]. [facility] STATES THAT THEY CANNOT DROP PT OFF AT [facility] IF PT DOES NOT HAVE SERVICES AVAILABLE. ADDRESS CHANGED TO [address] [place] [address] FOR PT TO BE ABLE TO WALK TO NEARBY LOCATION. EST. ARRIVAL TIME 1-2 HOURS.
== END 2022-08-12 17:51 | disposition home or self-care (01) ==
LOC: ER 10:33
DX: Z79.2 Long term (current) use of antibiotics (principal)
CPT/HCPCS: 36415; 80048; 80053; 85025; 96361; 96374; 99284; J3411; J7120; 96375

== ENCOUNTER 2022-11-09 08:28 | Inpatient (IN) | payer MEDICAID ==
[~2022-11-09] VITALS: Ht 177.8 cm; Wt 70.0 kg
[2022-11-09] MEDS ORDERED: normal saline 1000ML IV soln IVB ONE (08:40)
[2022-11-09 09:12] LABS: BASOPHILS % (AUTO) 1.8 % (0-1); EOSINOPHILS % (AUTO) 2.2 % (0-6); HEMATOCRIT 38.1 % (42.0-52.0); HEMOGLOBIN 12.8 g/dl (14.0-17.9); LYMPHOCYTES # (AUTO) 0.4 X10'3 (1.1-4.8); LYMPHOCYTES % (AUTO) 21.8 % (21-51); MEAN CORPUSCULAR HEMOGLOBIN 30.3 PG (27.0-31.0); MEAN CORPUSCULAR HGB CONC 33.5 g/dL (33.0-36.5); MEAN CORPUSCULAR VOLUME 90.5 FL (78-98); MEAN PLATELET VOLUME 6.4 FL (7.4-10.4); MONOCYTES # (AUTO) 0.2 X10'3 (0-0.9); MONOCYTES % (AUTO) 9.6 % (2-12); NEUTROPHILS # (AUTO) 1.2 X10'3 (1.8-7.7); NEUTROPHILS % (AUTO) 64.6 % (42-75); PLATELET COUNT 105 X10'3 (140-440); RED BLOOD COUNT 4.21 X10'6 (4.70-6.10); RED CELL DISTRIBUTION WIDTH 19.2 % (11.5-14.5); WHITE BLOOD COUNT 1.8 X10'3 (4.5-11.0)
[2022-11-09 09:37] LABS: ANISOCYTOSIS 2+; PLATELET ESTIMATE DECREASED; TOTAL CELLS COUNTED 100
[2022-11-09] MEDS ORDERED: LORazepam 2 mg/ml vial IV ONE (09:45)
[2022-11-09] MEDS ORDERED: chlordiazePOXIDE 25mg capsule PO ONE (09:50)
[2022-11-09] MEDS ORDERED: ringers solution, lactated 1000ml IV soln IV ONE (09:50)
--- NOTE | 2022-11-09 09:55 | NUR ---
Pt had N/V episode. While cleaning pt up after emesis pt had seizure lasting approx 20 sec. MD Ceballos updated and pt given ativan after receiving orders.
[2022-11-09 09:58] LABS: ALANINE AMINOTRANSFERASE 105 U/L (12-78); ALBUMIN 3.9 G/DL (3.4-5.0); ALBUMIN/GLOBULIN RATIO 0.9 (1.1-1.5); ALKALINE PHOSPHATASE 76 IU/L (46-116); ANION GAP 14 (8-16); ASPARTATE AMINO TRANSFERASE 126 U/L (10-37); BILIRUBIN,TOTAL 0.7 MG/DL (0.1-1.0); BLOOD UREA NITROGEN 4 MG/DL (7-18); BUN/CREATININE RATIO 4.3 (10.0-20.0); CALCIUM 9.1 MG/DL (8.5-10.1); CHLORIDE 95 MMOL/L (99-107); CREATININE 0.92 MG/DL (0.60-1.10); ETHANOL 0.093 GM/DL (0.0-0.010); GLUCOSE 98 MG/DL (70-104); POTASSIUM 3.9 MMOL/L (3.5-5.1); SODIUM 133 MMOL/L (135-145); TOTAL CARBON DIOXIDE 24.1 MMOL/L (24-32); TOTAL PROTEIN 8.3 G/DL (6.4-8.2); eGFR 85 ML/MIN
[2022-11-09 10:17] LABS: CLARITY,URINE CLEAR (Clear); COLOR,URINE YELLOW (Yellow); GLUCOSE, URINE NEGATIVE (Neg); KETONES,URINE NEGATIVE (Neg); LEUKOCYTE ESTERASE ,URINE NEGATIVE (Neg); NITRITES, URINE NEGATIVE (Neg); OCCULT BLOOD,URINE MODERATE (Neg); PH,URINE 6.5 (4.8-8.0); PROTEIN,URINE 100 mg/dl (Neg)
[2022-11-09 10:19] LABS: UA COLLECTION TYPE URINAL
[2022-11-09 10:25] LABS: URINE AMPHETAMINE SCREEN NEGATIVE (Neg); URINE BARBITUATE SCREEN NEGATIVE (Neg); URINE BENZODIAZEPINES SCREEN NEGATIVE (Neg); URINE CANNABINOID SCREEN NEGATIVE (Neg); URINE COCAINE SCREEN NEGATIVE (Neg); URINE METHADONE SCREEN NEGATIVE (Neg); URINE OPIATE SCREEN NEGATIVE (Neg); URINE PHENCYCLIDINE SCREEN NEGATIVE (Neg)
[2022-11-09 10:29] LABS: HYALINE CASTS 0-3 /LPF (NEGATIVE); MUCUS STRANDS FEW /LPF (Neg); SQUAMOUS EPITHELIAL CELL,UR FEW /LPF (FEW)
[2022-11-09 10:32] LABS: BACTERIA,URINE FEW /HPF (Neg); RBC,URINE 0-2 /HPF (0-2); WBC,URINE 0-4 /HPF (0-4)
--- NOTE | 2022-11-09 10:40 | NUR ---
Pt was maintaining O2 sat of 93-96% on RA and now pt requiring 15L O2 via non-rebreather to maintain sat >88%. Initially pt placed on NC O2 and sat readings of 82-84%. MD Ceballos updated on pt status. Pt able to sit up, take deep breathes and cough but sats minimally improve. Pt remains with RR rate 14-19 BPM and is in no obsevable distress. placing orders to have ABG drawn
[2022-11-09 11:24] LABS: ABG BASE EXCESS -4.4 mmol/L (-2.0-2.0); ABG HCO3 18.7 mmol/L (22.0-26.0); ABG OXYGEN SATURATION 85.5 % (94-97); ABG PCO2 (T) 29.6 mmHg (35.0-48.0); ABG PO2 (T) 56.1 mmHg (75.0-100.0); ALLEN'S TEST POSITIVE; FCOHb 0.4 % (0.0-3.9); FLOW 4 L/min; FMetHb 0.3 % (0.0-1.5); FO2Hb 84.9 % (94-97); PATIENT TEMPERATURE 37.4; TOTAL HEMOGLOBIN 12.9 G/dl (14.0-17.9)
[2022-11-09] MEDS ORDERED: ondansetron/PF 4mg/2ml inj IV ONE (11:30)
[2022-11-09] MEDS ORDERED: iohexol 350MG/ML 100ml bottle IV ONE (12:06)
[2022-11-09] MEDS ORDERED: LEVE500T PO (12:44)
[2022-11-09] MEDS ORDERED: potassium Cl 40MEQ/1/2NS 520ml 520 ML IV PRN (13:50)
[2022-11-09] MEDS ORDERED: ondansetron/PF 4mg/2ml inj IV PRN (13:50)
[2022-11-09] MEDS ORDERED: LORazepam 2 mg/ml vial IV PRN (13:50)
[2022-11-09] MEDS ORDERED: mag hydrox/Alum hydrox/simeth 30ml oral suspension PO PRN (13:50)
[2022-11-09] MEDS ORDERED: dextrose 50%-water 50ml dispensing syringe IV PRN (13:50)
[2022-11-09] MEDS ORDERED: magnesium Cl slow-release 64mg tablet PO PRN (13:50)
[2022-11-09] MEDS ORDERED: magnesium 4gm in 100ml NS 100 ML IV PRN (13:50)
[2022-11-09] MEDS ORDERED: magnesium hydroxide 30ml (MOM) UD suspension PO PRN (13:50)
[2022-11-09] MEDS ORDERED: magnesium 2GM in 50ml NS 50 ML IV PRN (13:50)
[2022-11-09] MEDS ORDERED: haloperidol lactate 5mg/ml inj IM PRN (13:50)
[2022-11-09] MEDS ORDERED: acetaminophen 325mg tablet PO PRN (13:50)
[2022-11-09] MEDS ORDERED: potassium Cl 20 mEq SR tablet PO PRN (13:50)
[2022-11-09] MEDS: levetiracetam inj 500 MG in normal saline 100ml IV soln 100 ML IV SCH (16:00)
[2022-11-09] MEDS: normal saline 1000ml 1,000 ML IV SCH ×2 (16:00→21:54)
[2022-11-09] MEDS: LORazepam 2 mg/ml vial IV PRN (17:38)
--- NOTE | 2022-11-09 19:15 | NUR ---
Patient in room PCU 3012. I have received report from NIA Duomnt and had the opportunity to ask questions and assume patient care.
--- NOTE | 2022-11-09 19:25 | NUR ---
pt arrived via wheelchair. transferred to bed. oriented to room. settled into bed. call light in reach
[2022-11-09 19:45] VITALS: BP 150/97
[2022-11-09] MEDS: K and/or MAG REPLACEMENT MC SCH (20:00)
[2022-11-09] MEDS: thiamine 100mg/ml 2ml inj. IV SCH (21:54)
[2022-11-09] MEDS: docusate sod 100mg capsule PO SCH (21:54)
[2022-11-09 22:00] VITALS: BP 161/71
[2022-11-10 02:00] VITALS: BP 158/85
[2022-11-10] MEDS: levetiracetam inj 500 MG in normal saline 100ml IV soln 100 ML IV SCH ×2 (03:38→15:53)
[2022-11-10 06:00] VITALS: BP 168/92
--- NOTE | 2022-11-10 06:33 | NUR ---
Problems reprioritized. Patient report given, questions answered & plan of care reviewed with MATHIEU Hansen.
--- NOTE | 2022-11-10 06:52 | NUR ---
Patient in room PCU 3012. I have received report from NIA Wolfe and had the opportunity to ask questions and assume patient care.
[2022-11-10 07:30] LABS: BASOPHILS % (AUTO) 0.2 % (0-1); EOSINOPHILS % (AUTO) 0.7 % (0-6); HEMATOCRIT 37.8 % (42.0-52.0); HEMOGLOBIN 12.9 g/dl (14.0-17.9); LYMPHOCYTES # (AUTO) 0.6 X10'3 (1.1-4.8); LYMPHOCYTES % (AUTO) 10.8 % (21-51); MEAN CORPUSCULAR HEMOGLOBIN 30.7 PG (27.0-31.0); MEAN CORPUSCULAR HGB CONC 34.1 g/dL (33.0-36.5); MONOCYTES # (AUTO) 0.6 X10'3 (0-0.9); MONOCYTES % (AUTO) 11.6 % (2-12); NEUTROPHILS # (AUTO) 4.2 X10'3 (1.8-7.7); NEUTROPHILS % (AUTO) 76.7 % (42-75); PLATELET COUNT 80 X10'3 (140-440); RED CELL DISTRIBUTION WIDTH 18.1 % (11.5-14.5); WHITE BLOOD COUNT 5.4 X10'3 (4.5-11.0)
[2022-11-10 07:36] LABS: ALANINE AMINOTRANSFERASE 73 U/L (12-78); ALBUMIN 3.4 G/DL (3.4-5.0); ALBUMIN/GLOBULIN RATIO 0.8 (1.1-1.5); ALKALINE PHOSPHATASE 72 IU/L (46-116); ANION GAP 12 (8-16); ASPARTATE AMINO TRANSFERASE 70 U/L (10-37); BILIRUBIN,TOTAL 1.4 MG/DL (0.1-1.0); BLOOD UREA NITROGEN 4 MG/DL (7-18); BUN/CREATININE RATIO 5.9 (10.0-20.0); CALCIUM 8.8 MG/DL (8.5-10.1); CHLORIDE 93 MMOL/L (99-107); CREATININE 0.68 MG/DL (0.60-1.10); GLUCOSE 72 MG/DL (70-104); MAGNESIUM 1.6 MG/DL (1.5-2.4); POTASSIUM 3.3 MMOL/L (3.5-5.1); SODIUM 131 MMOL/L (135-145); TOTAL CARBON DIOXIDE 26.1 MMOL/L (24-32); TOTAL PROTEIN 7.6 G/DL (6.4-8.2); eGFR > 90 ML/MIN
[2022-11-10] MEDS: K and/or MAG REPLACEMENT MC SCH ×2 (07:52→20:00)
[2022-11-10] MEDS: potassium Cl 20 mEq SR tablet PO PRN ×2 (07:58→20:57)
[2022-11-10] MEDS: docusate sod 100mg capsule PO SCH ×2 (07:58→20:57)
[2022-11-10] MEDS: enoxaparin 40mg/0.4ml syringe SUBCUT SCH (08:00)
[2022-11-10] MEDS: thiamine 100mg/ml 2ml inj. IV SCH ×3 (08:38→20:54)
[2022-11-10] MEDS: folic acid 1mg/0.2ml inj IV SCH (08:38)
[2022-11-10] MEDS: normal saline 1000ml 1,000 ML IV SCH ×3 (10:26→23:30)
--- NOTE | 2022-11-10 10:30 | NUR ---
The following was taken from the patients H&P: This 57 yr. old male had a witnessed seizure in the ER with possible aspiration. He has a medical history of intracerebral hemorrhage for which he underwent surgery and resulted in seizure disorder. He states that he has suffered multiple falls this past few weeks. He reports heavy alcohol use, denies tobacco use and denies illicit drug use. He is currently homeless. Cervical spine CT showed disruption of the cervical lordosis. Head CT was negative for acute processes. CXR was negative for evidence of acute disease. Chest CT findings were consistent with mild bibasilar atelectasis, left hydronephrosis, hepatosteatosis and changes in the thoracic spine. His most recent labs show a WBC of 5.4, HGB 12.9, BUN 4, BG 72 and an albumin of 3.4. He was admitted with an alcohol withdrawal protocol and seizure disorder management per progress notes. Wound care in for evaluation of skin breakdown to the patients bilateral hips, groin and knees per nursing consult request. The pt. is asleep in the bed, rouses easily to name. Greeted and explained the intent. He appears to be A/O x3/forgetful, agreeable to care. He presents with scattered intact discolorations/ecchymosis to his torso and flanks. His sacrococcygeal area in with intact pink and blanching skin. He has intact redness to his inner thighs. He has blanching discoloration to his bilateral hips with a circular shiny scar to his left hip. He states that he sleeps on the ground and has gotten wounds in the past to his hips. He has a dry scab to his right knee. The remainder of his skin appears free of breakdown. Jenna care rendered and linen changed secondary to large urinary incontinence. The pt. is able to reposition himself in bed. Bed left in the lowest position, call light in reach. Basic skin care is deferred to nursing as pt. does not have wounds and displays good mobility. Report was given to the primary nurse. Addendum: 11/15/22 at 0741 by Isha Ponce RN [facility]
[2022-11-10 11:00] VITALS: BP 134/79
[2022-11-10] MEDS ORDERED: KEP500T PO (12:06)
[2022-11-10] MEDS ORDERED: THIA100T70 PO (12:06)
[2022-11-10] MEDS ORDERED: FOLI0.4T6 PO (12:06)
--- NOTE | 2022-11-10 13:24 | NUR ---
Called social insurance administrator in regards to patients discharge and need for clothes/ride and no correction to go to. administrative services coordinator states that discharge must be held until homeless screening is done and she would be up as soon as she could. flight test supervisor made aware. Addendum: 11/10/22 at 1730 by Jade Curtis LVN, LVN administrative services coordinator found patient to be inappropriate for discharge. Patient was no longer able to answer orientation questions and had began shaking and became incontinent of stool. made aware of situation and discharge held.
--- NOTE | 2022-11-10 14:32 | NUR ---
WOUND INFECTION EDUCATION PROVIDED BY WOUND CARE 1. Patient instructed to call their primary doctor, or go the ED immediately if any of the following symptoms occur: * Increased pain in wound * Increase in drainage from the wound * Redness in the skin surrounding the wound * Warmth in the skin surrounding the wound * Bleeding from the wound * Temperature of 101 or greater 2. If any of these occur while in the hospital tell a nurse immediately. Addendum: 11/10/22 at 1433 by Zehra Henderson LVN Amended: Links added.
[2022-11-10 15:00] VITALS: BP 167/97
--- NOTE | 2022-11-10 16:18 | NUR ---
PAGER ID: [phone] MESSAGE: Bony Cosby [id number]. Per social sercvies pt unsafe to DC, no safe place to go, now incon, increased confusion, shakiness, etc. OK to hold DC? Thank you, Jade [phone].
[2022-11-10] MEDS: LORazepam 2 mg/ml vial IV PRN (16:34)
[2022-11-10 18:00] VITALS: BP 155/104
--- NOTE | 2022-11-10 18:24 | NUR ---
Problems reprioritized. Patient report given, questions answered & plan of care reviewed with NIA Wolfe.
--- NOTE | 2022-11-10 18:38 | NUR ---
Patient in room PCU 3012. I have received report from MATHIEU Hansen and had the opportunity to ask questions and assume patient care.
[2022-11-10 22:00] VITALS: BP 153/88
[2022-11-11] MEDS: potassium Cl 20 mEq SR tablet PO PRN (01:27)
[2022-11-11 02:00] VITALS: BP 186/87
[2022-11-11] MEDS: levetiracetam inj 500 MG in normal saline 100ml IV soln 100 ML IV SCH (02:45)
--- NOTE | 2022-11-11 06:25 | NUR ---
Patient in room PCU 3012. I have received report from KATERIN KRAMER and had the opportunity to ask questions and assume patient care.
--- NOTE | 2022-11-11 06:25 | NUR ---
Problems reprioritized. Patient report given, questions answered & plan of care reviewed with NIA Lorenz.
[2022-11-11] MEDS: docusate sod 100mg capsule PO SCH (06:52)
[2022-11-11 07:15] VITALS: BP_SYST 156; BP_SYST 169; BP_DIAS 111; BP_DIAS 90
[2022-11-11 07:36] LABS: BASOPHILS % (AUTO) 0.4 % (0-1); EOSINOPHILS # (AUTO) 0.1 X10'3 (0-0.9); EOSINOPHILS % (AUTO) 2.5 % (0-6); HEMATOCRIT 38.4 % (42.0-52.0); HEMOGLOBIN 13.1 g/dl (14.0-17.9); LYMPHOCYTES # (AUTO) 0.7 X10'3 (1.1-4.8); LYMPHOCYTES % (AUTO) 19.3 % (21-51); MEAN CORPUSCULAR HEMOGLOBIN 30.6 PG (27.0-31.0); MEAN CORPUSCULAR VOLUME 89.9 FL (78-98); MEAN PLATELET VOLUME 7.2 FL (7.4-10.4); MONOCYTES # (AUTO) 0.3 X10'3 (0-0.9); MONOCYTES % (AUTO) 10.1 % (2-12); NEUTROPHILS # (AUTO) 2.3 X10'3 (1.8-7.7); NEUTROPHILS % (AUTO) 67.7 % (42-75); PLATELET COUNT 88 X10'3 (140-440); RED BLOOD COUNT 4.27 X10'6 (4.70-6.10); RED CELL DISTRIBUTION WIDTH 18.3 % (11.5-14.5); WHITE BLOOD COUNT 3.4 X10'3 (4.5-11.0)
[2022-11-11] MEDS: enoxaparin 40mg/0.4ml syringe SUBCUT SCH (07:55)
[2022-11-11] MEDS: thiamine 100mg/ml 2ml inj. IV SCH (08:10)
[2022-11-11] MEDS: folic acid 1mg/0.2ml inj IV SCH (08:11)
[2022-11-11 08:12] LABS: ALANINE AMINOTRANSFERASE 76 U/L (12-78); ALBUMIN 3.3 G/DL (3.4-5.0); ALBUMIN/GLOBULIN RATIO 0.8 (1.1-1.5); ALKALINE PHOSPHATASE 65 IU/L (46-116); ANION GAP 7 (8-16); ASPARTATE AMINO TRANSFERASE 74 U/L (10-37); BILIRUBIN,TOTAL 1.2 MG/DL (0.1-1.0); BLOOD UREA NITROGEN 10 MG/DL (7-18); BUN/CREATININE RATIO 11.9 (10.0-20.0); CALCIUM 9.3 MG/DL (8.5-10.1); CHLORIDE 97 MMOL/L (99-107); CREATININE 0.84 MG/DL (0.60-1.10); GLUCOSE 99 MG/DL (70-104); MAGNESIUM 1.4 MG/DL (1.5-2.4); SODIUM 132 MMOL/L (135-145); TOTAL CARBON DIOXIDE 28.3 MMOL/L (24-32); TOTAL PROTEIN 7.5 G/DL (6.4-8.2); eGFR > 90 ML/MIN
[2022-11-11] MEDS: K and/or MAG REPLACEMENT MC SCH (08:19)
[2022-11-11] MEDS ORDERED: lisinopril 10 MG tablet PO SCH (09:10)
[2022-11-11 09:23] VITALS: BP_SYST 156
[2022-11-11] MEDS ORDERED: LISI10TA27 PO (11:54)
--- NOTE | 2022-11-11 12:42 | NUR ---
PT DISCHARGED IN STABLE CONDITION. 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 IV DC CANULA INTACT. PT SENT IN CLEAN CLOTHING, NEW SHOES, AND SACK LUNCH. FOLLOW UP INSTRUCTIONS GIVEN, ALL QUESTIONS ANSWERED. ALL BELONGINGS IN HAND. Addendum: 11/11/22 at 1244 by Shandra Gross RN Amended: Links added.
[2022-11-14] MEDS ORDERED: folic acid 1mg tablet PO SCH (08:00)
[2022-11-14] MEDS ORDERED: thiamine 100mg tablet PO SCH (08:00)
== END 2022-11-11 12:36 | disposition home or self-care (01) | DRG 53 ==
LOC: ER 08:28 → ED HOLD 13:51 → PCU 3S 19:20
PROVIDERS: ADMIT Family Medicine; ATTEND Family Medicine
PROC: B32T1ZZ Computerized Tomography (CT Scan) of Left Pulmonary Artery using Low Osmolar Contrast (ICD-10-PCS; principal; 2022-11-09)
PROC: B3201ZZ Computerized Tomography (CT Scan) of Thoracic Aorta using Low Osmolar Contrast (ICD-10-PCS; 2022-11-09)
PROC: B32S1ZZ Computerized Tomography (CT Scan) of Right Pulmonary Artery using Low Osmolar Contrast (ICD-10-PCS; 2022-11-09)
DX: G40.909 Epilepsy, unspecified, not intractable, without status epilepticus (principal); J96.01 Acute respiratory failure with hypoxia; D61.818 Other pancytopenia; F10.239 Alcohol dependence with withdrawal, unspecified; R74.01 Elevation of levels of liver transaminase levels; K70.9 Alcoholic liver disease, unspecified; E87.1 Hypo-osmolality and hyponatremia; T17.908A Unspecified foreign body in respiratory tract, part unspecified causing other injury, initial encounter; X58.XXXA Exposure to other specified factors, initial encounter; Y90.4 Blood alcohol level of 80-99 mg/100 ml; Z59.00 Homelessness unspecified; Z86.73 Personal history of transient ischemic attack (TIA), and cerebral infarction without residual deficits; Y93.89 Activity, other specified; Y92.89 Other specified places as the place of occurrence of the external cause; Y99.8 Other external cause status; Z79.899 Other long term (current) drug therapy
CPT/HCPCS: 36415; 36600; 70450; 71045; 71275; 72125; 80053; 80305; 80320; 81001; 82803; 83735; 85007; 85018; 85025; 87081; 93005; 99285; G0378; J1953; J2060; J2405; J3411; J3490; J7030; J7120; Q9967